=== PATIENT | female | born 1980 | race Caucasian/White ===

== ENCOUNTER 2016-11-21 07:23 | Emergency (ER) | payer OTHER ==
[~2016-11-21] VITALS: Ht 172.1 cm; Wt 105.2 kg
[~2016-11-21 07:23] MED LIST: ACET-704 PO; CYCL10TA2 PO; PROM25TA10 PO; TRAM-29 PO
[2016-11-21 07:30] VITALS: BP 146/80
--- NOTE | 2016-11-21 07:56 | PHYS DOC ---
Past Medical History Past Medical History: Anemia, CHF, Hypertension, IBS, Other Additional Past Medical Histor: leaky valves, chronic back pain, fissure Past Surgical History: Cholecystectomy, Tubal ligation, Other Additional Past Surgical Histo: cardiac cath Alcohol Use: None Drug Use: None Adult General Chief Complaint Chief Complaint: BACK PAIN HPI HPI Patient is a 36 year old female with 2 complaints. #1 back pain. Patient states yesterday she was laying on her side, her phone rang, she twisted to grab her phone, and the top half of her body went one way and the bottom half when the other way. She felt a "pop" in her back has been hurting since then. She has tried heat without relief. She has not tried ice. She has not taken any pain reliever. She in the past has taken tramadol but it makes her constipated. No radiation of her pain down her legs. It is located in her mid to low back across both sides. #2 vaginal discharge. She wants to be checked for STD. She states once a long time ago she had a similar vaginal discharge, she thought it was yeast, but it turned out to be trichomoniasis. Patient denies , she has had her tubes tied and has not missed a period. Review of Systems Review of Systems Constitutional: Denies fever or chills [] Respiratory: Denies cough or shortness of breath [] GI: Denies vomiting : Denies dysuria or hematuria [] Musculoskeletal: As in history of present illness for back pain Current Medications Current Medications Current Medications Medications (Trade) Dose Ordered Sig/Saima Start Time Stop Time Status Last Admin Dose Admin Ibuprofen (Motrin) 600 mg 1X ONCE 11/21/16 08:00 11/21/16 08:01 DC 11/21/16 08:03 600 MG Allergies Allergies Allergies Coded Allergies Type Severity Reaction Last Updated Verified hydrocodone Allergy Intermediate itch 11/21/16 Yes oxycodone Allergy Intermediate itch 11/21/16 Yes Physical Exam Physical Exam Constitutional: Well developed, well nourished, no acute distress, non-toxic appearance. Alert, mentating normally, watching TV. HENT: Normocephalic, atraumatic, bilateral external ears normal, nose normal. [ ] Eyes: conjunctiva normal, no discharge. [] Neck: Normal range of motion, no stridor. [] Skin: Warm, dry, no erythema, no rash. [] Back: Back appearance normal, nontender to palpation, no overlying skin abnormality Pelvic exam: External genitalia normal in appearance, Moderate amount of normal- appearing white discharge. No lesions noted. Vaginal exam normal. Cervix normal in appearance without cervicitis. Bimanual exam unremarkable without masses. Extremities: No tenderness, no cyanosis, no clubbing, ROM intact, no edema. [] Neurologic: Alert and oriented X 3, normal motor function, normal sensory function, no focal deficits noted. [] Current Patient Data Vital Signs Vital Signs Date Time Temp Pulse Resp B/P (MAP) Pulse Ox O2 Delivery O2 Flow Rate FiO2 11/21/16 07:30 98.4 74 16 98 Room Air 98.4 Lab Values Microbiology 11/21/16 Wet Prep - Final, Complete EKG EKG [] Radiology/Procedures Radiology/Procedures [] Course & Med Decision Making Course & Med Decision Making Pertinent Labs and Imaging studies reviewed. (See chart for details) 36-year-old female with 2 complaints. #1 back pain. Musculoskeletal. Talked to the patient about ice and ibuprofen. #2 vaginal discharge. Wet prep was sent as well as GC, chlamydia. Wet prep negative for trichomoniasis or yeast. See discharge instructions. [] Dragon Disclaimer Dragon Disclaimer This electronic medical record was generated, in whole or in part, using a voice recognition dictation system. Departure Departure Impression: Primary Impression: Low back pain Additional Impression: Vaginal discharge Disposition: HOME, SELF-CARE Condition: STABLE Referrals: CORETTA ANN MD (PCP) Patient Instructions: Back Pain, Adult, [id number] Additional Instructions: For back pain, ice 15-20 minutes out of every 1-2 hours. Ibuprofen 600 mg every 6-8 hours as needed for pain. Take with food. If it bothers your stomach, you might try taking it with [id number] Pepcid or Zantac type medication. Tests negative for Trichomonas or yeast. It will take 2-3 days for the other tests and if they are positive we will call you. I suggest [id number] symptom reliever such as vaginal still. Think about whether something that you have come in contact with might be irritating, such as a new detergent, new type of pads, etc. Problem Qualifiers BREEZY FLMEING MD November 21, 2016 07:56
[2016-11-21] MEDS ORDERED: IBUPROFEN 600 MG TABLET. PO ONE (08:00)
== END 2016-11-21 08:18 | disposition home or self-care (01) ==
LOC: ER 07:28
DX: M54.5 Low back pain (principal); M54.6 Pain in thoracic spine; N89.8 Other specified noninflammatory disorders of vagina; G89.29 Other chronic pain; K58.9 Irritable bowel syndrome, unspecified; I11.0 Hypertensive heart disease with heart failure; I50.9 Heart failure, unspecified; Z90.49 Acquired absence of other specified parts of digestive tract; Z98.51 Tubal ligation status; Z86.2 Personal history of diseases of the blood and blood-forming organs and certain disorders involving the immune mechanism; Z88.6 Allergy status to analgesic agent
CPT/HCPCS: 87491; 87591; 99284; Q0111

== ENCOUNTER 2016-12-03 18:04 | Emergency (ER) | payer OTHER ==
[~2016-12-03] VITALS: Ht 170.2 cm; Wt 106.1 kg
[2016-12-03 18:44] LABS: BILIRUBIN,URINE SMALL (NEG); GLUCOSE,URINE NEGATIVE (NEG); NITRITE,URINE NEGATIVE (NEG); PH,URINE 5.5; PROTEIN,URINE NEGATIVE (NEG-TRACE); UROBILINOGEN,URINE 0.2 mg/dL (0.2 mg/dL)
[2016-12-03] MEDS ORDERED: IV NORMAL SALINE 1000ML BAG 1,000 ML IV ONE (18:45)
[2016-12-03] MEDS ORDERED: ONDANSETRON PF 4 MG/2 ML VIAL. IV ONE (18:45)
[2016-12-03] MEDS ORDERED: MORPHINE SULFATE 4 MG/ML DISP.SYRIN. IV ONE (18:45)
[2016-12-03 18:49] LABS: BASO # 0.1 x10^3/uL (0.0-0.2); BASO % 1 % (0-3); EOS % 1 % (0-3); HEMATOCRIT 39.2 % (36.0-47.0); HEMOGLOBIN 12.8 g/dL (12.0-15.5); LYMPH # 3.3 x10^3/uL (1.0-4.8); LYMPH % 39 % (24-48); MEAN CORPUSCULAR HEMOGLOBIN 27 pg (25-35); MEAN CORPUSCULAR HGB CONC 33 g/dL (31-37); MEAN CORPUSCULAR VOLUME 81 fL (79-100); MONO % 8 % (0-9); NEUT % 52 % (31-73); PLATELET COUNT 457 x10^3/uL (140-400); RED BLOOD COUNT 4.83 x10^6/uL (3.50-5.40); RED CELL DISTRIBUTION WIDTH 15.4 % (11.5-14.5); WHITE BLOOD COUNT 8.3 x10^3/uL (4.0-11.0)
[2016-12-03 18:51] LABS: BACTERIA,URINE 0 /HPF (0-FEW); SQUAMOUS EPITHELIAL CELL,UR FEW /LPF; WBC,URINE OCC /HPF (0-4)
[2016-12-03 19:00] LABS: CALCIUM 9.3 mg/dL (8.5-10.1); CREATININE 0.9 mg/dL (0.6-1.0); GFR 70.1; POTASSIUM 3.5 mmol/L (3.5-5.1)
[2016-12-03 19:06] LABS: ALBUMIN 3.9 g/dL (3.4-5.0); ALBUMIN/GLOBULIN RATIO 0.9 (1.0-1.7); TOTAL BILIRUBIN 0.3 mg/dL (0.2-1.0); TOTAL PROTEIN 8.2 g/dL (6.4-8.2)
--- NOTE | 2016-12-03 19:06 | PHYS DOC ---
Past Medical History Past Medical History: Anemia, CHF, Hypertension, IBS, Other Additional Past Medical Histor: leaky valves, chronic back pain, fissure Past Surgical History: Cholecystectomy, Tubal ligation, Other Additional Past Surgical Histo: cardiac cath Alcohol Use: None Drug Use: None Adult General Chief Complaint Chief Complaint: ABDOMINAL PAIN HPI HPI 36-year-old female presenting to the emergency department today with epigastric abdominal pain for one week. It isn't worse over the last hour. She's had vomiting and nausea as well. She denies diarrhea or constipation. Her pain is sharp moderate nonradiating intermittent and without alleviating factors. She has had a cholecystectomy. Review of systems is negative for chest pain shortness of breath fevers chills. All other review of systems is negative unless otherwise noted in history of present illness. Review of Systems Review of Systems SEE ABOVE. Current Medications Current Medications Current Medications Medications (Trade) Dose Ordered Sig/Saima Start Time Stop Time Status Last Admin Dose Admin Morphine Sulfate 4 mg 1X ONCE 12/03/16 18:45 12/03/16 18:46 DC 12/03/16 18:54 4 MG Ondansetron HCl (Zofran) 4 mg 1X ONCE 12/03/16 18:45 12/03/16 18:46 DC 12/03/16 18:56 4 MG Sodium Chloride 1,000 ml @ 1,000 mls/hr 1X ONCE 12/03/16 18:45 12/03/16 19:44 DC 12/03/16 18:55 1,000 MLS/HR Allergies Allergies Allergies Coded Allergies Type Severity Reaction Last Updated Verified hydrocodone Allergy Intermediate itch 11/21/16 Yes oxycodone Allergy Intermediate itch 11/21/16 Yes Physical Exam Physical Exam Constitutional: Well developed, well nourished, no acute distress, non-toxic appearance. HENT: Normocephalic, atraumatic, bilateral external ears normal, oropharynx moist, no oral exudates, nose normal. [] Eyes: PERRLA, EOMI, conjunctiva normal, no discharge. Neck: Normal range of motion, no tenderness, supple, no stridor. [] Cardiovascular:Heart rate regular rhythm, no murmur Lungs & Thorax: Bilateral breath sounds clear to auscultation [] Abdomen: Soft nontender abdomen without rebound tenderness or guarding present. Negative McBurneys point. Negative Hearn sign. No ecchymosis present. Skin: Warm, dry, no erythema, no rash. Back: No tenderness, no CVA tenderness. [] Extremities: No tenderness, no cyanosis, no clubbing, ROM intact, no edema. Neurologic: Alert and oriented X 3, normal motor function, normal sensory function, no focal deficits noted. [] Psychologic: Affect normal, judgement normal, mood normal. [] Current Patient Data Vital Signs Vital Signs Date Time Temp Pulse Resp B/P (MAP) Pulse Ox O2 Delivery O2 Flow Rate FiO2 12/03/16 20:26 58 19 135/75 (95) 97 Room Air 12/03/16 18:30 98.9 98.9 Lab Values Laboratory Tests Test 12/03/16 18:17 12/03/16 18:40 Urine Collection Type Unknown Urine Color Beth Urine Clarity Clear Urine pH 5.5 Urine Specific Cammal 1.025 Urine Protein Negative mg/dL (NEG-TRACE) Urine Glucose (UA) Negative mg/dL (NEG) Urine Ketones (Stick) Trace mg/dL (NEG) Urine Blood Negative (NEG) Urine Nitrite Negative (NEG) Urine Bilirubin Small (NEG) Urine Urobilinogen Dipstick 0.2 mg/dL (0.2 mg/dL) Urine Leukocyte Esterase Negative (NEG) Urine RBC 3-5 /HPF (0-2) Urine WBC Occ /HPF (0-4) Urine Squamous Epithelial Cells Few /LPF Urine Bacteria 0 /HPF (0-FEW) Urine Hyaline Casts Moderate /HPF Urine Mucus Marked /LPF White Blood Count 8.3 x10^3/uL (4.0-11.0) Red Blood Count 4.83 x10^6/uL (3.50-5.40) Hemoglobin 12.8 g/dL (12.0-15.5) Hematocrit 39.2 % (36.0-47.0) Mean Corpuscular Volume 81 fL (79-100) Mean Corpuscular Hemoglobin 27 pg (25-35) Mean Corpuscular Hemoglobin Concent 33 g/dL (31-37) Red Cell Distribution Width 15.4 % (11.5-14.5) H Platelet Count 457 x10^3/uL (140-400) H Neutrophils (%) (Auto) 52 % (31-73) Lymphocytes (%) (Auto) 39 % (24-48) Monocytes (%) (Auto) 8 % (0-9) Eosinophils (%) (Auto) 1 % (0-3) Basophils (%) (Auto) 1 % (0-3) Neutrophils # (Auto) 4.3 x10^3uL (1.8-7.7) Lymphocytes # (Auto) 3.3 x10^3/uL (1.0-4.8) Monocytes # (Auto) 0.6 x10^3/uL (0.0-1.1) Eosinophils # (Auto) 0.1 x10^3/uL (0.0-0.7) Basophils # (Auto) 0.1 x10^3/uL (0.0-0.2) Sodium Level 139 mmol/L (136-145) Potassium Level 3.5 mmol/L (3.5-5.1) Chloride Level 102 mmol/L (98-107) Carbon Dioxide Level 26 mmol/L (21-32) Anion Gap 11 (6-14) Blood Urea Nitrogen 13 mg/dL (7-20) Creatinine 0.9 mg/dL (0.6-1.0) Estimated GFR (Cockcroft-Gault) 70.1 BUN/Creatinine Ratio 14 (6-20) Glucose Level 113 mg/dL (70-99) H Calcium Level 9.3 mg/dL (8.5-10.1) Total Bilirubin 0.3 mg/dL (0.2-1.0) Aspartate Amino Transferase (AST) 18 U/L (15-37) Alanine Aminotransferase (ALT) 27 U/L (14-59) Alkaline Phosphatase 65 U/L (46-116) Total Protein 8.2 g/dL (6.4-8.2) Albumin 3.9 g/dL (3.4-5.0) Albumin/Globulin Ratio 0.9 (1.0-1.7) L Lipase 76 U/L (73-393) Laboratory Tests 12/03/16 18:40 Laboratory Tests 12/03/16 18:40 EKG EKG [] Radiology/Procedures Radiology/Procedures [] Course & Med Decision Making Course & Med Decision Making Pertinent Labs and Imaging studies reviewed. (See chart for details) [] 28-year-old female presenting to the emergency department with epigastric abdominal pain. Vital signs afebrile with normal heart rate. Physical exam shows nontender abdomen. blood work obtained. CT abdomen and pelvis obtained which was unremarkable for acute pathology. The patient was given IV pain medication and nausea medication along with saline. On reexamination, her pain improved significantly. Repeat abd exam shows soft nontender abd. She was given morphine and zofran to go home with. The patient was then discharged home in stable condition to follow up with their primary care physician over the next 2- 3 days. They were to return if their symptoms worsened or if they were concerned for any reason. [id number]-va-[id number] discharge instructions and return precautions were given. Patient's questions were answered to their satisfaction. Patient is comfortable plan. Dragon Disclaimer Dragon Disclaimer This electronic medical record was generated, in whole or in part, using a voice recognition dictation system. Departure Departure Impression: Primary Impression: Abdominal pain Disposition: 01 HOME, SELF-CARE Condition: STABLE Referrals: CORETTA ANN MD (PCP) Patient Instructions: Abdominal Pain MARIEL RATLIFF MD December 03, 2016 19:06
[2016-12-03 20:26] VITALS: BP 135/75
--- NOTE | 2016-12-03 20:36 | RAD ---
CT Abdomen and Pelvis without contrast History: Epigastric pain for one week, nausea and vomiting Technique: Noncontrast CT imaging was performed of the abdomen and pelvis. Multiplanar images are reviewed. Exposure: One or more of the following individualized dose reduction techniques were utilized for this examination: 1. Automated exposure control 2. Adjustment of the mA and/or kV according to patient size 3. Use of iterative reconstruction technique. Comparison: None Findings: Accurate evaluation of abdominal visceral organs is limited without intravenous contrast. There is no obvious abnormality of the spleen, liver, or pancreas. There is no adrenal nodularity. There has been cholecystectomy. No renal calculus is identified. There is no hydronephrosis. No definite ureteral calculus is identified. Accurate evaluation of bowel is limited without oral contrast. There is distention of stomach, internal heterogeneity due to retained gastric contents. There is a very small quantity of dependent free fluid in the pelvis greater on the right. No free air is identified. Normal caliber appendix is visualized without adjacent inflammatory type change. There is mild diverticulosis as of the descending and sigmoid colon without convincing evidence of diverticulitis. There is moderate to severe degenerative disc disease L5-S1, mild left and probable moderate right neural foramina compromise at this level by disc osteophyte complex. Impression: 1. There is distention of stomach. Otherwise no significant acute abnormality is identified on this noncontrast exam. There is mild colonic diverticulosis. There is a very small quantity of nonspecific dependent free fluid in the pelvis greater on the right. There is no CT evidence of acute appendicitis. Electronically signed by: Mor Nova MD (12/03/2016 8:33 PM)
== END 2016-12-03 21:06 | disposition home or self-care (01) ==
LOC: ER 18:04
DX: R10.13 Epigastric pain (principal); I11.0 Hypertensive heart disease with heart failure; I50.9 Heart failure, unspecified; G89.29 Other chronic pain; Z90.49 Acquired absence of other specified parts of digestive tract; Z98.51 Tubal ligation status; Z88.5 Allergy status to narcotic agent
CPT/HCPCS: 36415; 74176; 80053; 81001; 83690; 85027; 96361; 96374; 96375; 99285; J2270; J2405; J7030

== ENCOUNTER 2018-02-28 10:39 | Emergency (ER) | payer OTHER ==
[~2018-02-28] VITALS: Ht 170.2 cm; Wt 104.9 kg
[~2018-02-28 10:39] MED LIST changes: -TRAM-29 PO; +TRAM-48 PO
[2018-02-28 10:57] VITALS: BP 143/77
--- NOTE | 2018-02-28 11:52 | RAD ---
Cervical spine, 3 views, 02/28/2018: HISTORY: Neck and arm pain There is straightening of the normal cervical lordosis. No fracture or dislocation is identified. The intervertebral disc spaces are well-maintained. The prevertebral soft tissues are unremarkable. IMPRESSION: 1. Straightening of the normal cervical lordosis. 2. No acute bony abnormality is detected. Electronically signed by: Dwain Love MD (02/28/2018 11:48 AM) [facility]
--- NOTE | 2018-02-28 12:16 | PHYS DOC ---
Past Medical History Past Medical History: Anemia, CHF, Hypertension, IBS, Pancreatitis, STD, Other Additional Past Medical Histor: leaky valves, chronic back pain, fissure Past Surgical History: Cholecystectomy, Tubal ligation, Other Additional Past Surgical Histo: cardiac cath Alcohol Use: None Drug Use: None Adult General Chief Complaint Chief Complaint: Neck Pain [facility] HPI Patient is a 37 year old [f__sex] who presents with [] Review of Systems Review of Systems Constitutional: Denies fever or chills [] Eyes: Denies change in visual acuity, redness, or eye pain [] HENT: Denies nasal congestion or sore throat [] Respiratory: Denies cough or shortness of breath [] Cardiovascular: No additional information not addressed in HPI [] GI: Denies abdominal pain, nausea, vomiting, bloody stools or diarrhea [] : Denies dysuria or hematuria [] Musculoskeletal: Denies back pain or joint pain [] Integument: Denies rash or skin lesions [] Neurologic: Denies headache, focal weakness or sensory changes [] Endocrine: Denies polyuria or polydipsia [] All other systems were reviewed and found to be within normal limits, except as documented in this note. Allergies Allergies Allergies Coded Allergies Type Severity Reaction Last Updated Verified hydrocodone Allergy Intermediate itch 11/21/16 Yes oxycodone Allergy Intermediate itch 11/21/16 Yes Physical Exam Physical Exam Constitutional: Well developed, well nourished, no acute distress, non-toxic appearance. [] HENT: Normocephalic, atraumatic, bilateral external ears normal, oropharynx moist, no oral exudates, nose normal. [] Eyes: PERRLA, EOMI, conjunctiva normal, no discharge. [] Neck: Normal range of motion, no tenderness, supple, no stridor. [] Cardiovascular:Heart rate regular rhythm, no murmur [] Lungs & Thorax: Bilateral breath sounds clear to auscultation [] Abdomen: Bowel sounds normal, soft, no tenderness, no masses, no pulsatile masses. [] Skin: Warm, dry, no erythema, no rash. [] Back: No tenderness, no CVA tenderness. [] Extremities: No tenderness, no cyanosis, no clubbing, ROM intact, no edema. [] Neurologic: Alert and oriented X 3, normal motor function, normal sensory function, no focal deficits noted. [] Psychologic: Affect normal, judgement normal, mood normal. [] Current Patient Data Vital Signs Vital Signs Date Time Temp Pulse Resp B/P (MAP) Pulse Ox O2 Delivery O2 Flow Rate FiO2 02/28/18 10:57 98.3 66 16 143/77 (99) 99 Room Air 98.3 EKG EKG [] Radiology/Procedures Radiology/Procedures [] Course & Med Decision Making Course & Med Decision Making Pertinent Labs and Imaging studies reviewed. (See chart for details) [] Dragon Disclaimer Dragon Disclaimer This electronic medical record was generated, in whole or in part, using a voice recognition dictation system. Departure Departure Impression: Primary Impression: Trapezius muscle strain Disposition: HOME, SELF-CARE Condition: STABLE Referrals: ASTRID PHELPS (PCP) Patient Instructions: Muscle Strain Additional Instructions: Take the medication as directed. You may also take 800 mg of ibuprofen 3 times daily along with this medication. Follow-up with your primary care provider for possible referral to orthopedics if not improving in one week. If worsening return to the emergency department. Scripts Carisoprodol (SOMA) 350 Mg Tablet 1 TAB PO QHS, #14 TAB Prov: DEANN MAICAS APRN 02/28/18 DEANN MACIAS APRN Feb 28, 2018 12:16
[2018-02-28] MEDS ORDERED: CARI350T PO (12:24)
[2018-02-28] MEDS ORDERED: KETOROLAC 60 MG/2 ML INJ. IM ONE (13:15)
== END 2018-02-28 12:35 | disposition home or self-care (01) ==
LOC: ER 10:39
DX: S46.811A Strain of other muscles, fascia and tendons at shoulder and upper arm level, right arm, initial encounter (principal); I11.0 Hypertensive heart disease with heart failure; I50.9 Heart failure, unspecified; Z90.49 Acquired absence of other specified parts of digestive tract; Z98.51 Tubal ligation status; Z88.5 Allergy status to narcotic agent; X58.XXXA Exposure to other specified factors, initial encounter; Y93.89 Activity, other specified; Y92.89 Other specified places as the place of occurrence of the external cause; Y99.8 Other external cause status
CPT/HCPCS: 72040; 96372; 99284; J1885

== ENCOUNTER 2018-04-02 13:01 | Emergency (ER) | payer OTHER ==
[~2018-04-02] VITALS: Ht 170.2 cm; Wt 103.9 kg
[~2018-04-02 13:01] MED LIST changes: +CARI350T PO
[2018-04-02 13:10] VITALS: BP 147/74
--- NOTE | 2018-04-02 13:15 | PHYS DOC ---
Past Medical History Past Medical History: Anemia, CHF, Hypertension, IBS, Pancreatitis, STD, Other Additional Past Medical Histor: leaky valves, chronic back pain, fissure Past Surgical History: Cholecystectomy, Tubal ligation, Other Additional Past Surgical Histo: cardiac cath Alcohol Use: None Drug Use: None Adult General Chief Complaint Chief Complaint: EYE PROBLEMS HPI HPI Patient is a 37 year old female who has had congestion, sore throat, and ear fullness for the last week and then yesterday started noticing her eye was draining a white drainage and she awoke today with her eye matted shut. Review of Systems Review of Systems Constitutional: Denies fever or chills Eyes: Denies change in visual acuity, reports L eye redness and drainage HENT: Reports nasal congestion and mild sore throat. Respiratory: Denies shortness of breath. Reports mild cough. Cardiovascular: Denies chest pain. GI: Denies abdominal pain, nausea, vomiting, bloody stools or diarrhea Musculoskeletal: Denies back pain or joint pain Integument: Denies rash or skin lesions Neurologic: Denies headache, focal weakness or sensory changes All other systems were reviewed and found to be within normal limits, except as documented in this note. Allergies Allergies Allergies Coded Allergies Type Severity Reaction Last Updated Verified hydrocodone Allergy Intermediate itch 11/21/16 Yes oxycodone Allergy Intermediate itch 11/21/16 Yes Physical Exam Physical Exam Constitutional: Well developed, well nourished, no acute distress, non-toxic appearance. HENT: Normocephalic, atraumatic, bilateral external ears normal, oropharynx moist, no oral exudates, nose normal. Eyes: PERRLA, EOMI, L eye conjunctiva is mildly erythematous with a white/ yellow drainage noted in medial canthus. Pt denies vision changes and modified visual acuity screening intact. Neck: Normal range of motion, no tenderness, supple, no stridor. Cardiovascular:Heart rate regular rhythm, no murmur Lungs & Thorax: Bilateral breath sounds clear to auscultation Abdomen: Bowel sounds normal, soft, no tenderness, no masses, no pulsatile masses. Skin: Warm, dry, no erythema, no rash. Back: No tenderness, no CVA tenderness. Extremities: No tenderness, no cyanosis, no clubbing, ROM intact, no edema. Neurologic: Alert and oriented X 3, normal motor function, normal sensory function, no focal deficits noted. Psychologic: Affect normal, judgement normal, mood normal. Current Patient Data Vital Signs Vital Signs Date Time Temp Pulse Resp B/P (MAP) Pulse Ox O2 Delivery O2 Flow Rate FiO2 04/02/18 13:10 98.2 75 18 147/74 (98) 100 Room Air 98.2 EKG EKG [] Radiology/Procedures Radiology/Procedures [] Course & Med Decision Making Course & Med Decision Making Pertinent Labs and Imaging studies reviewed. (See chart for details) Discussed conjunctivitis and that this appears to be likely bacterial. Discussed high risk of passing this on to others and encouraged frequent hand washing. Warm compresses to help with drainage. Will cover with antibiotic drops and allergy medicine for the congestion. Pt to f/u with opthomology if any progression or continuation of symptoms. Dragon Disclaimer Dragon Disclaimer This electronic medical record was generated, in whole or in part, using a voice recognition dictation system. Departure Departure Impression: Primary Impression: Conjunctivitis Disposition: HOME, SELF-CARE Condition: STABLE Referrals: ASTRID PHELPS (PCP) Patient Instructions: Bacterial Conjunctivitis, [id number], Upper Respiratory Infection, Adult, Vwdv-[id number] Scripts Guaifenesin (MUCINEX) 600 Mg Tablet.er 1 TAB PO BID, #14 TAB Prov: RUBEN GUAMAN 04/02/18 Gentamicin Sulfate (GENTAMICIN SULFATE 0.3% OPHTH SOLN) 5 Ml Drops 2 DROP EACHEYE QID, #5 ML Prov: RUBEN GUAMAN 04/02/18 RUBEN GUAMAN Apr 02, 2018 13:15
[2018-04-02] MEDS ORDERED: GENT5DRO3 EACHEYE (13:18)
[2018-04-02] MEDS ORDERED: GUAI600T47 PO (13:18)
== END 2018-04-02 13:23 | disposition home or self-care (01) ==
LOC: ER 13:01
DX: H10.9 Unspecified conjunctivitis (principal); J02.9 Acute pharyngitis, unspecified; I11.0 Hypertensive heart disease with heart failure; I50.9 Heart failure, unspecified; K58.9 Irritable bowel syndrome, unspecified; G89.29 Other chronic pain; Z90.49 Acquired absence of other specified parts of digestive tract; Z98.51 Tubal ligation status; Z88.5 Allergy status to narcotic agent
CPT/HCPCS: 99283

== ENCOUNTER 2018-05-02 10:31 | Emergency (ER) | payer OTHER ==
[~2018-05-02] VITALS: Ht 170.2 cm; Wt 106.6 kg
[~2018-05-02 10:31] MED LIST changes: +GENT5DRO3 EACHEYE; +GUAI600T47 PO
[2018-05-02 11:19] LABS: BILIRUBIN,URINE NEGATIVE (NEG); CLARITY,URINE CLEAR; COLOR,URINE YELLOW; NITRITE,URINE NEGATIVE (NEG); PH,URINE 5.5; PROTEIN,URINE NEGATIVE (NEG-TRACE); UROBILINOGEN,URINE 0.2 mg/dL (0.2 mg/dL)
[2018-05-02 11:35] VITALS: BP 133/72
[2018-05-02 11:38] LABS: SQUAMOUS EPITHELIAL CELL,UR FEW /LPF
[2018-05-02 11:39] LABS: BACTERIA,URINE 0 /HPF (0-FEW); RBC,URINE 0 /HPF (0-2); WBC,URINE OCC /HPF (0-4)
[2018-05-02 11:44] LABS: BASO # 0.1 x10^3/uL (0.0-0.2); BASO % 1 % (0-3); EOS % 1 % (0-3); HEMOGLOBIN 12.3 g/dL (12.0-15.5); LYMPH % 30 % (24-48); MEAN CORPUSCULAR HEMOGLOBIN 28 pg (25-35); MEAN CORPUSCULAR HGB CONC 34 g/dL (31-37); MEAN CORPUSCULAR VOLUME 83 fL (79-100); MONO # 0.5 x10^3/uL (0.0-1.1); MONO % 8 % (0-9); NEUT # 4.1 x10^3uL (1.8-7.7); NEUT % 61 % (31-73); PLATELET COUNT 411 x10^3/uL (140-400); RED BLOOD COUNT 4.34 x10^6/uL (3.50-5.40); RED CELL DISTRIBUTION WIDTH 15.9 % (11.5-14.5); WHITE BLOOD COUNT 6.7 x10^3/uL (4.0-11.0)
[2018-05-02 11:47] LABS: CREATININE 0.6 mg/dL (0.6-1.0); GFR 111.3; POTASSIUM 3.9 mmol/L (3.5-5.1)
[2018-05-02 11:53] LABS: ALBUMIN 3.7 g/dL (3.4-5.0); ALBUMIN/GLOBULIN RATIO 0.9 (1.0-1.7); TOTAL BILIRUBIN 0.3 mg/dL (0.2-1.0)
--- NOTE | 2018-05-02 12:34 | RAD ---
Pelvic ultrasound, 05/02/2018: HISTORY: Right-sided pelvic pain Transabdominal and transvaginal scans were obtained. The uterus measures 10.1 x 5.3 x 4.4 cm. An echogenic structure compatible with an IUD is seen within the central uterine cavity. The remainder of the central uterine echo complex is unremarkable. The myometrium is mildly heterogeneous. There appears to be a small 1.1 cm heterogeneous, predominately isoechoic nodule within the anterior wall the uterus, most likely representing a fibroid. The right ovary measures 3.3 x 2.5 x 2.1 cm. The left ovary measures 4.5 x 2.6 x 4.4 and contains a simple cyst measuring 3.4 cm. A small follicular cyst is also present left ovary. There is blood flow in both ovaries. The adnexal regions are otherwise unremarkable. No free fluid is evident in the pelvis. IMPRESSION: 1. An IUD is in place in the central uterine cavity. 2. Probable small uterine fibroid. 2. Left ovarian cyst. Electronically signed by: Dwain Love MD (05/02/2018 12:30 PM) [facility]
[2018-05-02] MEDS ORDERED: VALA500T PO (12:58)
--- NOTE | 2018-05-02 13:00 | PHYS DOC ---
Past Medical History Past Medical History: Anemia, CHF, Hypertension, IBS, Pancreatitis, STD, Other Additional Past Medical Histor: leaky valves, chronic back pain, fissure Past Surgical History: Cholecystectomy, Tubal ligation, Other Additional Past Surgical Histo: cardiac cath Alcohol Use: None Drug Use: None Adult General Chief Complaint Chief Complaint: ABDOMINAL PAIN HPI HPI Patient is a 37 year old [f__sex] who presents with [] Review of Systems Review of Systems Constitutional: Denies fever or chills [] Eyes: Denies change in visual acuity, redness, or eye pain [] HENT: Denies nasal congestion or sore throat [] Respiratory: Denies cough or shortness of breath [] Cardiovascular: No additional information not addressed in HPI [] GI: Denies abdominal pain, nausea, vomiting, bloody stools or diarrhea [] : Denies dysuria or hematuria [] Musculoskeletal: Denies back pain or joint pain [] Integument: Denies rash or skin lesions [] Neurologic: Denies headache, focal weakness or sensory changes [] Endocrine: Denies polyuria or polydipsia [] All other systems were reviewed and found to be within normal limits, except as documented in this note. Allergies Allergies Allergies Coded Allergies Type Severity Reaction Last Updated Verified hydrocodone Allergy Intermediate itch 11/21/16 Yes oxycodone Allergy Intermediate itch 11/21/16 Yes Physical Exam Physical Exam Constitutional: Well developed, well nourished, no acute distress, non-toxic appearance. [] HENT: Normocephalic, atraumatic, bilateral external ears normal, oropharynx moist, no oral exudates, nose normal. [] Eyes: PERRLA, EOMI, conjunctiva normal, no discharge. [] Neck: Normal range of motion, no tenderness, supple, no stridor. [] Cardiovascular:Heart rate regular rhythm, no murmur [] Lungs & Thorax: Bilateral breath sounds clear to auscultation [] Abdomen: Bowel sounds normal, soft, no tenderness, no masses, no pulsatile masses. [] Skin: Warm, dry, no erythema, no rash. [] Back: No tenderness, no CVA tenderness. [] Extremities: No tenderness, no cyanosis, no clubbing, ROM intact, no edema. [] Neurologic: Alert and oriented X 3, normal motor function, normal sensory function, no focal deficits noted. [] Psychologic: Affect normal, judgement normal, mood normal. [] Current Patient Data Vital Signs Vital Signs Date Time Temp Pulse Resp B/P (MAP) Pulse Ox O2 Delivery O2 Flow Rate FiO2 05/02/18 10:35 98.6 66 20 132/68 (89) 100 Room Air 98.6 Lab Values Laboratory Tests Test 05/02/18 10:35 05/02/18 10:48 05/02/18 11:20 Urine Collection Type Unknown Urine Color Yellow Urine Clarity Clear Urine pH 5.5 Urine Specific [place] 1.015 Urine Protein Negative mg/dL (NEG-TRACE) Urine Glucose (UA) Negative mg/dL (NEG) Urine Ketones (Stick) Negative mg/dL (NEG) Urine Blood Small (NEG) Urine Nitrite Negative (NEG) Urine Bilirubin Negative (NEG) Urine Urobilinogen Dipstick 0.2 mg/dL (0.2 mg/dL) Urine Leukocyte Esterase Negative (NEG) Urine RBC 0 /HPF (0-2) Urine WBC Occ /HPF (0-4) Urine Squamous Epithelial Cells Few /LPF Urine Bacteria 0 /HPF (0-FEW) Urine Mucus Marked /LPF POC Urine HCG, Qualitative Hcg negative (Negative) White Blood Count 6.7 x10^3/uL (4.0-11.0) Red Blood Count 4.34 x10^6/uL (3.50-5.40) Hemoglobin 12.3 g/dL (12.0-15.5) Hematocrit 36.0 % (36.0-47.0) Mean Corpuscular Volume 83 fL (79-100) Mean Corpuscular Hemoglobin 28 pg (25-35) Mean Corpuscular Hemoglobin Concent 34 g/dL (31-37) Red Cell Distribution Width 15.9 % (11.5-14.5) H Platelet Count 411 x10^3/uL (140-400) H Neutrophils (%) (Auto) 61 % (31-73) Lymphocytes (%) (Auto) 30 % (24-48) Monocytes (%) (Auto) 8 % (0-9) Eosinophils (%) (Auto) 1 % (0-3) Basophils (%) (Auto) 1 % (0-3) Neutrophils # (Auto) 4.1 x10^3uL (1.8-7.7) Lymphocytes # (Auto) 2.0 x10^3/uL (1.0-4.8) Monocytes # (Auto) 0.5 x10^3/uL (0.0-1.1) Eosinophils # (Auto) 0.0 x10^3/uL (0.0-0.7) Basophils # (Auto) 0.1 x10^3/uL (0.0-0.2) Sodium Level 138 mmol/L (136-145) Potassium Level 3.9 mmol/L (3.5-5.1) Chloride Level 102 mmol/L (98-107) Carbon Dioxide Level 26 mmol/L (21-32) Anion Gap 10 (6-14) Blood Urea Nitrogen 7 mg/dL (7-20) Creatinine 0.6 mg/dL (0.6-1.0) Estimated GFR (Cockcroft-Gault) 111.3 BUN/Creatinine Ratio 12 (6-20) Glucose Level 91 mg/dL (70-99) Calcium Level 9.0 mg/dL (8.5-10.1) Total Bilirubin 0.3 mg/dL (0.2-1.0) Aspartate Amino Transferase (AST) 18 U/L (15-37) Alanine Aminotransferase (ALT) 28 U/L (14-59) Alkaline Phosphatase 50 U/L (46-116) Total Protein 8.0 g/dL (6.4-8.2) Albumin 3.7 g/dL (3.4-5.0) Albumin/Globulin Ratio 0.9 (1.0-1.7) L Amylase Level 38 U/L (25-115) Lipase 71 U/L (73-393) L Laboratory Tests 05/02/18 11:20 Laboratory Tests 05/02/18 11:20 EKG EKG [] Radiology/Procedures Radiology/Procedures []PATIENT: FAN WILLIAMSON RACCOUNT: [id number]#: [id number] : 1980 LOCATION: ER AGE: 37 SEX: F EXAM STATUS: REG ER ORD. PHYSICIAN: DEANN MACIAS APRN REASON: pelvic pain to right, hx of fibroid and left ovarian cyst PROCEDURE: PELVIS W/TV Pelvic ultrasound, 05/02/2018: HISTORY: Right-sided pelvic pain Transabdominal and transvaginal scans were obtained. The uterus measures 10.1 x 5.3 x 4.4 cm. An echogenic structure compatible with an IUD is seen within the central uterine cavity. The remainder of the central uterine echo complex is unremarkable. The myometrium is mildly heterogeneous. There appears to be a small 1.1 cm heterogeneous, predominately isoechoic nodule within the anterior wall the uterus, most likely representing a fibroid. The right ovary measures 3.3 x 2.5 x 2.1 cm. The left ovary measures 4.5 x 2.6 x 4.4 and contains a simple cyst measuring 3.4 cm. A small follicular cyst is also present left ovary. There is blood flow in both ovaries. The adnexal regions are otherwise unremarkable. No free fluid is evident in the pelvis. IMPRESSION: 1. An IUD is in place in the central uterine cavity. 2. Probable small uterine fibroid. 2. Left ovarian cyst. Electronically signed by: Dwain Love MD (05/02/2018 12:30 PM) [facility] DICTATED and SIGNED BY: DWAIN LOVE MD DATE: 05/02/18 1222 Course & Med Decision Making Course & Med Decision Making Pertinent Labs and Imaging studies reviewed. (See chart for details) [] Dragon Disclaimer Dragon Disclaimer This electronic medical record was generated, in whole or in part, using a voice recognition dictation system. Departure Departure Impression: Primary Impression: Uterine fibroid Additional Impressions: Ovarian cyst Herpes genitalia Disposition: 01 HOME, SELF-CARE Condition: STABLE Referrals: ASTRID PHELPS (PCP) Patient Instructions: Genital Herpes, Ovarian Cyst, Uterine Fibroid, Easy-to- Read Additional Instructions: Take medication as prescribed. Follow-up with gynecology for further evaluation and management of your urine fibroid and ovarian cyst. Scripts Valacyclovir Hcl (VALACYCLOVIR) 500 Mg Tablet 1 TAB PO BID for 3 Days, #6 TAB 2 Refills Prov: MARCELLAFEDERICODEANN Wray APRN 05/02/18 Problem Qualifiers DEANN MACIAS APRN May 02, 2018 13:00
== END 2018-05-02 13:25 | disposition home or self-care (01) ==
LOC: ER 10:31
DX: D25.9 Leiomyoma of uterus, unspecified (principal); N83.202 Unspecified ovarian cyst, left side; A60.00 Herpesviral infection of urogenital system, unspecified; I11.0 Hypertensive heart disease with heart failure; I50.9 Heart failure, unspecified; G89.29 Other chronic pain; M54.9 Dorsalgia, unspecified; Z90.49 Acquired absence of other specified parts of digestive tract; Z88.5 Allergy status to narcotic agent
CPT/HCPCS: 36415; 76830; 76856; 80053; 81001; 81025; 82150; 83690; 85025; 99285

== ENCOUNTER 2018-07-21 22:13 | Emergency (ER) | payer OTHER ==
[~2018-07-21] VITALS: Ht 170.2 cm; Wt 113.4 kg
[~2018-07-21 22:13] MED LIST changes: +VALA500T PO
[2018-07-21] MEDS ORDERED: IV NORMAL SALINE 1000ML BAG 1,000 ML IV SCH (23:00)
[2018-07-21] MEDS ORDERED: MORPHINE SULFATE 4 MG/ML VIAL. IV/SQ PRN (23:00)
[2018-07-21] MEDS ORDERED: MORPHINE SULFATE 2 MG/ML VIAL. ONE (23:23)
[2018-07-21 23:46] LABS: BASO % 0 % (0-3); EOS # 0.1 x10^3/uL (0.0-0.7); EOS % 2 % (0-3); HEMOGLOBIN 11.9 g/dL (12.0-15.5); LYMPH % 36 % (24-48); MEAN CORPUSCULAR HEMOGLOBIN 28 pg (25-35); MEAN CORPUSCULAR HGB CONC 34 g/dL (31-37); MEAN CORPUSCULAR VOLUME 82 fL (79-100); MONO # 0.4 x10^3/uL (0.0-1.1); MONO % 8 % (0-9); NEUT # 3.1 x10^3uL (1.8-7.7); NEUT % 55 % (31-73); PLATELET COUNT 327 x10^3/uL (140-400); RED BLOOD COUNT 4.26 x10^6/uL (3.50-5.40); RED CELL DISTRIBUTION WIDTH 14.8 % (11.5-14.5); WHITE BLOOD COUNT 5.6 x10^3/uL (4.0-11.0)
[2018-07-21 23:50] LABS: BILIRUBIN,URINE SMALL (NEG); CLARITY,URINE CLOUDY; COLOR,URINE AMBER; NITRITE,URINE NEGATIVE (NEG); PROTEIN,URINE NEGATIVE (NEG-TRACE)
[2018-07-21 23:54] LABS: CALCIUM 8.5 mg/dL (8.5-10.1); CREATININE 0.7 mg/dL (0.6-1.0); GFR 93.2; POTASSIUM 3.4 mmol/L (3.5-5.1)
[2018-07-21 23:56] LABS: BACTERIA,URINE MANY /HPF (0-FEW); SQUAMOUS EPITHELIAL CELL,UR OCC /LPF
--- NOTE | 2018-07-21 23:56 | PHYS DOC ---
Past Medical History Past Medical History: Anemia, CHF, Hypertension, IBS, Pancreatitis, STD, Other Additional Past Medical Histor: leaky valves, chronic back pain, fissure Past Surgical History: Cholecystectomy, Tubal ligation, Other Additional Past Surgical Histo: cardiac cath Alcohol Use: None Drug Use: None Adult General Chief Complaint Chief Complaint: ABDOMINAL PAIN HPI HPI Patient is a 37-year-old female who presents with complaint of epigastric pain that started earlier today. Patient states that pain has gotten worse this evening. She states that she had taken her evening dose of morphine and that had worn off and then she took a tramadol. Patient rates her pain currently at an 8 out of 10. She states that she has a history of pancreatitis and this feels just like when she has had pancreatitis in the past. She does admit to nausea but has not vomited. She denies any diarrhea. She states the pain radiates into her back. Review of Systems Review of Systems Constitutional: Denies fever or chills [] Respiratory: Denies cough or shortness of breath [] Cardiovascular: No additional information not addressed in HPI [] GI: Complains of abdominal pain with nausea. No vomiting or diarrhea [] : Denies dysuria or hematuria [] Musculoskeletal: Complains of back pain [] All other systems were reviewed and found to be within normal limits, except as documented in this note. Current Medications Current Medications Current Medications Medications (Trade) Dose Ordered Sig/[facility] Start Time Stop Time Status Last Admin Dose Admin Morphine Sulfate (Morphine Sulfate) 2 mg STK-MED ONCE 07/21/18 23:23 07/21/18 23:30 DC Sodium Chloride 1,000 ml @ 1,000 mls/hr Q1H 07/21/18 23:00 07/21/18 23:59 DC 07/21/18 23:35 1,000 MLS/HR Allergies Allergies Allergies Coded Allergies Type Severity Reaction Last Updated Verified hydrocodone Allergy Intermediate itch 11/21/16 Yes oxycodone Allergy Intermediate itch 11/21/16 Yes Physical Exam Physical Exam Constitutional: Well developed, well nourished, no acute distress, non-toxic appearance. [] HENT: Normocephalic, atraumatic, bilateral external ears normal, oropharynx moist, no oral exudates, nose normal. [] Eyes: PERRLA, EOMI, conjunctiva normal, no discharge. [] Neck: Normal range of motion, no tenderness, supple, no stridor. [] Cardiovascular: Regular rate and rhythm[] Lungs & Thorax: Bilateral breath sounds clear to auscultation [] Abdomen: Bowel sounds normal, soft, with moderate epigastric tenderness. [] Skin: Warm, dry, no erythema, no rash. [] Extremities: No tenderness, no cyanosis, no clubbing, ROM intact, no edema. [] Neurologic: Alert and oriented X 3, no focal deficits noted. [] Current Patient Data Vital Signs Vital Signs Date Time Temp Pulse Resp B/P (MAP) Pulse Ox O2 Delivery O2 Flow Rate FiO2 07/21/18 22:36 98.3 78 16 155/85 (108) 98 Room Air 98.3 Lab Values Laboratory Tests Test 07/21/18 23:25 07/21/18 23:39 White Blood Count 5.6 x10^3/uL (4.0-11.0) Red Blood Count 4.26 x10^6/uL (3.50-5.40) Hemoglobin 11.9 g/dL (12.0-15.5) L Hematocrit 35.0 % (36.0-47.0) L Mean Corpuscular Volume 82 fL (79-100) Mean Corpuscular Hemoglobin 28 pg (25-35) Mean Corpuscular Hemoglobin Concent 34 g/dL (31-37) Red Cell Distribution Width 14.8 % (11.5-14.5) H Platelet Count 327 x10^3/uL (140-400) Neutrophils (%) (Auto) 55 % (31-73) Lymphocytes (%) (Auto) 36 % (24-48) Monocytes (%) (Auto) 8 % (0-9) Eosinophils (%) (Auto) 2 % (0-3) Basophils (%) (Auto) 0 % (0-3) Neutrophils # (Auto) 3.1 x10^3uL (1.8-7.7) Lymphocytes # (Auto) 2.0 x10^3/uL (1.0-4.8) Monocytes # (Auto) 0.4 x10^3/uL (0.0-1.1) Eosinophils # (Auto) 0.1 x10^3/uL (0.0-0.7) Basophils # (Auto) 0.0 x10^3/uL (0.0-0.2) Sodium Level 138 mmol/L (136-145) Potassium Level 3.4 mmol/L (3.5-5.1) L Chloride Level 101 mmol/L (98-107) Carbon Dioxide Level 27 mmol/L (21-32) Anion Gap 10 (6-14) Blood Urea Nitrogen 9 mg/dL (7-20) Creatinine 0.7 mg/dL (0.6-1.0) Estimated GFR (Cockcroft-Gault) 93.2 BUN/Creatinine Ratio 13 (6-20) Glucose Level 105 mg/dL (70-99) H Calcium Level 8.5 mg/dL (8.5-10.1) Total Bilirubin 0.3 mg/dL (0.2-1.0) Aspartate Amino Transferase (AST) 77 U/L (15-37) H Alanine Aminotransferase (ALT) 27 U/L (14-59) Alkaline Phosphatase 55 U/L (46-116) Total Protein 7.3 g/dL (6.4-8.2) Albumin 3.2 g/dL (3.4-5.0) L Albumin/Globulin Ratio 0.8 (1.0-1.7) L Lipase 56 U/L (73-393) L Urine Color Beth Urine Clarity Cloudy Urine pH 6.0 Urine Specific [place] 1.025 Urine Protein Negative mg/dL (NEG-TRACE) Urine Glucose (UA) Negative mg/dL (NEG) Urine Ketones (Stick) Negative mg/dL (NEG) Urine Blood Moderate (NEG) Urine Nitrite Negative (NEG) Urine Bilirubin Small (NEG) Urine Urobilinogen Dipstick 1.0 mg/dL (0.2 mg/dL) Urine Leukocyte Esterase Moderate (NEG) Urine RBC 3-5 /HPF (0-2) Urine WBC 11-20 /HPF (0-4) Urine Squamous Epithelial Cells Occ /LPF Urine Bacteria Many /HPF (0-FEW) Urine Mucus Slight /LPF Laboratory Tests 07/21/18 23:25 Laboratory Tests 07/21/18 23:25 EKG EKG [] Radiology/Procedures Radiology/Procedures [] Course & Med Decision Making Course & Med Decision Making Pertinent Labs and Imaging studies reviewed. (See chart for details) [] Dragon Disclaimer Dragon Disclaimer This electronic medical record was generated, in whole or in part, using a voice recognition dictation system. Departure Departure Impression: Primary Impression: Epigastric abdominal pain Additional Impression: Urinary tract infection Disposition: 01 HOME, SELF-CARE Condition: STABLE Referrals: ASTRID PHELPS (PCP) Patient Instructions: Abdominal Pain, Urinary Tract Infection Scripts Sulfamethoxazole/Trimethoprim (BACTRIM DS TABLET) 1 Each Tablet 1 TAB PO BID, #14 TAB Prov: EHSAN SEGOVIA Jr. DO 07/22/18 Problem Qualifiers Additional Impression: Urinary tract infection Urinary tract infection type: site unspecified Hematuria presence: with hematuria Qualified Codes: N39.0 - Urinary tract infection, site not specified ; R31.9 - Hematuria, unspecified EHSAN SEGOVIA Jr. DO Jul 21, 2018 23:56
[2018-07-22] LABS: ALBUMIN 3.2 g/dL (3.4-5.0); ALBUMIN/GLOBULIN RATIO 0.8 (1.0-1.7); TOTAL BILIRUBIN 0.3 mg/dL (0.2-1.0); TOTAL PROTEIN 7.3 g/dL (6.4-8.2)
[2018-07-22] MEDS ORDERED: SULF1TAB24 PO (00:15)
[2018-07-22 00:18] VITALS: BP 141/84
[2018-07-22] MEDS ORDERED: SMZ/TMP 800/160MG TABLET. PO ONE (00:30)
[2018-07-22 00:34] LABS: U PREG PATIENT NEGATIVE (NEG)
== END 2018-07-22 00:40 | disposition home or self-care (01) ==
LOC: ER 22:13
DX: N39.0 Urinary tract infection, site not specified (principal); R31.9 Hematuria, unspecified; I11.0 Hypertensive heart disease with heart failure; I50.9 Heart failure, unspecified; G89.29 Other chronic pain; K58.9 Irritable bowel syndrome, unspecified; Z90.49 Acquired absence of other specified parts of digestive tract; Z98.51 Tubal ligation status; Z88.5 Allergy status to narcotic agent
CPT/HCPCS: 36415; 80053; 81001; 81025; 83690; 85025; 87086; 96374; 99283; J2270; J7030

== ENCOUNTER 2019-05-29 17:01 | Emergency (ER) | payer OTHER ==
[~2019-05-29] VITALS: Ht 170.2 cm; Wt 108.0 kg
[~2019-05-29 17:01] MED LIST changes: +DOXY100C2 PO; +ONDA4TAB12 PO; +SULF1TAB24 PO
[2019-05-29 19:15] VITALS: BP 134/63
[2019-05-29] MEDS ORDERED: KETOROLAC 30 MG/ML VIAL. IM STA (20:00)
[2019-05-29] MEDS ORDERED: ORPH100T PO (20:07)
--- NOTE | 2019-05-29 20:08 | PHYS DOC ---
Past Medical History Past Medical History: Anemia, CHF, Hypertension, IBS, Pancreatitis, STD, Other Additional Past Medical Histor: leaky valves, chronic back pain, fissure Past Surgical History: Cholecystectomy, Hysterectomy, Tubal ligation, Other Additional Past Surgical Histo: cardiac cath Alcohol Use: None Drug Use: None Adult General Chief Complaint Chief Complaint: Neck Pain [facility] HPI Patient is a 38 year old female who presents with right-sided neck pain has been ongoing for 2 months. The patient states hot showers make it better. Rates her pain a 7 out of 10 in severity and sharp. Denies any numbness and tingling down the arm. Review of Systems Review of Systems Constitutional: Denies fever or chills [] Eyes: Denies change in visual acuity, redness, or eye pain [] HENT: Denies nasal congestion or sore throat [] Respiratory: Denies cough or shortness of breath [] Cardiovascular: No additional information not addressed in HPI [] GI: Denies abdominal pain, nausea, vomiting, bloody stools or diarrhea [] : Denies dysuria or hematuria [] Musculoskeletal: Reports R shoulder pain. Integument: Denies rash or skin lesions [] Neurologic: Denies headache, focal weakness or sensory changes [] Endocrine: Denies polyuria or polydipsia [] Complete systems were reviewed and found to be within normal limits, except as documented in this note. Allergies Allergies Allergies Coded Allergies Type Severity Reaction Last Updated Verified hydrocodone Allergy Intermediate itch 11/21/16 Yes oxycodone Allergy Intermediate itch 11/21/16 Yes Physical Exam Physical Exam Constitutional: Well developed, well nourished, no acute distress, non-toxic appearance. [] HENT: Normocephalic, atraumatic, bilateral external ears normal, oropharynx moist, no oral exudates, nose normal. [] Eyes: PERRLA, EOMI, conjunctiva normal, no discharge. [] Neck: Normal range of motion, no tenderness, supple, no stridor. [] Cardiovascular:Heart rate regular rhythm, no murmur [] Lungs & Thorax: Bilateral breath sounds clear to auscultation [] Abdomen: Bowel sounds normal, soft, no tenderness, no masses, no pulsatile masses. [] Skin: Warm, dry, no erythema, no rash. [] Back: No tenderness, no CVA tenderness. [] Extremities: Trigger point in R trapezes muscle. Neurologic: Alert and oriented X 3, normal motor function, normal sensory function, no focal deficits noted. [] Psychologic: Affect normal, judgement normal, mood normal. [] Current Patient Data Vital Signs Vital Signs Date Time Temp Pulse Resp B/P (MAP) Pulse Ox O2 Delivery O2 Flow Rate FiO2 05/29/19 19:15 98.0 63 18 134/63 (86) 100 Room Air 98.0 EKG EKG [] Radiology/Procedures Radiology/Procedures [] Course & Med Decision Making Course & Med Decision Making Pertinent Labs and Imaging studies reviewed. (See chart for details) Discussed with patient to follow up with primary care doctor and try Foam Roller and Therma Heat. Will also prescribe Norflex and give Toradol in ER. Dragon Disclaimer Dragon Disclaimer This electronic medical record was generated, in whole or in part, using a voice recognition dictation system. Departure Departure Impression: Primary Impression: Musculoskeletal pain Disposition: HOME, SELF-CARE Condition: STABLE Referrals: ASTRID PHELPS (PCP) Patient Instructions: Musculoskeletal Pain Additional Instructions: Thank you for visiting [facility]. We appreciate you trusting us with your care. If any additional problems come up don't hesitate to return to visit us. Please follow up with your primary care provider so they can plan additional care if needed and know about the problem that you had. If symptoms worsen come back to the Emergency Department. Any concerning symptoms that start such as chest pain, shortness of air, weakness or numbness on one side of the body, running high fevers or any other concerning symptoms return to the ER. Please fill your medications at any pharmacy and follow the prescription instructions. Please also get Therma Heat and follow label instructions. Scripts Orphenadrine Citrate (ORPHENADRINE CITRATE) 100 Mg Tablet.er 100 MG PO BID for 10 Days, #20 TAB.SR Prov: TERI METZGER APRN 05/29/19 TERI METZGER APRN May 29, 2019 20:08
== END 2019-05-29 20:25 | disposition home or self-care (01) ==
LOC: ER 17:01
DX: M25.511 Pain in right shoulder (principal); M54.2 Cervicalgia; G89.29 Other chronic pain; I11.0 Hypertensive heart disease with heart failure; I50.9 Heart failure, unspecified; K58.9 Irritable bowel syndrome, unspecified; Z88.5 Allergy status to narcotic agent
CPT/HCPCS: 96372; 99283; J1885

== ENCOUNTER 2019-08-02 17:50 | Emergency (ER) | payer OTHER ==
[~2019-08-02] VITALS: Ht 170.2 cm; Wt 106.0 kg
[~2019-08-02 17:50] MED LIST changes: +ORPH100T PO
[2019-08-02 18:00] VITALS: BP 144/101
[2019-08-02] MEDS ORDERED: METH4TAB2 PO (18:31)
--- NOTE | 2019-08-02 18:31 | PHYS DOC ---
Past Medical History Past Medical History: Anemia, CHF, Hypertension, IBS, Pancreatitis, STD, Other Additional Past Medical Histor: leaky valves, chronic back pain, fissure (MISA PRESSLEY APRN) Past Surgical History: Cholecystectomy, Hysterectomy, Tubal ligation, Other Additional Past Surgical Histo: cardiac cath, cardiac ablation (MISA PRESSLEY APRN) Alcohol Use: None Drug Use: None (MISA PRESSLEY APRN) Attending Signature I have participated in the care of this patient and I have reviewed and agree with all pertinent clinical information above including history, exam, and recommendations. (WIL YOST MD) Adult General Chief Complaint Chief Complaint: Neck Pain HPI HPI Patient is a 38 year old female who presents to the ED today complaining of 6 out of 10 right-sided neck pain radiating to her right upper extremity as well as her back, symptoms have been going on since 2017 and flared up in April 2019. She reports she has been seen by her PCP and was told there is nothing they can do for her. She states she is currently taking morphine pill for pancreatitis and it's not touching her pain. Patient denies any injury. Denies any chest pain or shortness of breath. She has spent quite a bit of time complaining the morphine not working for her pain. Denies anything specifically exacerbating or relieving her symptoms. (MISA PRESSLEY APRN) Review of Systems Review of Systems Constitutional: Denies fever or chills [] Eyes: Denies change in visual acuity, redness, or eye pain [] HENT: Denies nasal congestion or sore throat [] Respiratory: Denies cough or shortness of breath [] Cardiovascular: No additional information not addressed in HPI [] GI: Denies abdominal pain, nausea, vomiting, bloody stools or diarrhea [] : Denies dysuria or hematuria [] Musculoskeletal: Reports neck pain Integument: Denies rash or skin lesions [] Neurologic: Denies headache, focal weakness or sensory changes [] All other systems were reviewed and found to be within normal limits, except as documented in this note. (MISA PRESSLEY APRN) Allergies Allergies Allergies Coded Allergies Type Severity Reaction Last Updated Verified hydrocodone Allergy Intermediate itch 11/21/16 Yes oxycodone Allergy Intermediate itch 11/21/16 Yes (WIL YOST MD) Physical Exam Physical Exam Constitutional: Well developed, well nourished, no acute distress, non-toxic appearance. [] HENT: Normocephalic, atraumatic, bilateral external ears normal, oropharynx moist, no oral exudates, nose normal. [] Eyes: PERRLA, EOMI, conjunctiva normal, no discharge. [] Neck: Refused ROM to the neck, no tenderness, supple, no stridor. [] Cardiovascular:Heart rate regular rhythm, no murmur [] Lungs & Thorax: Bilateral breath sounds clear to auscultation [] Abdomen: Bowel sounds normal, soft, no tenderness, no masses, no pulsatile masses. [] Skin: Warm, dry, no erythema, no rash. [] Back: No tenderness, no CVA tenderness. [] Extremities: No tenderness, no cyanosis, no clubbing, ROM intact, no edema. [] Neurologic: Alert and oriented X 3, normal motor function, normal sensory function, no focal deficits noted. [] Psychologic: Affect normal, judgement normal, mood normal. [] (MISA PRESSLEY APRN) Current Patient Data Vital Signs Vital Signs Date Time Temp Pulse Resp B/P (MAP) Pulse Ox O2 Delivery O2 Flow Rate FiO2 08/02/19 18:00 98.8 76 16 144/101 (115) 99 Room Air 98.8 (WIL YOST MD) EKG EKG [] (MISA PRESSLEY APRN) Radiology/Procedures Radiology/Procedures [] (MISA PRESSLEY APRN) Course & Med Decision Making Course & Med Decision Making Pertinent Labs and Imaging studies reviewed. (See chart for details) This is a 38-year-old female patient presenting to the ED today complaining of right-sided neck pain radiating to her right upper extremity and back since 2018. Patient states the pain flared up in April 2019 and was seen by the PCP at who told her there is nothing they can do for her. She reports she is already taking morphine for pancreatitis which is not touching her neck pain. Informed patient I recommend [id number] remedies including Tylenol/ibuprofen which she stated she it is not working, i recommended heating pad, recommended following up with the specialists we talked about. Recommended Medrol Dosepak informed her I will not be able to give any pain medicine because she is already on the strong pain medicine (morphine) for her pancreatitis. She states she works for [employer]. Informed her she can follow up with spine doctor and pain clinic. (MISA PRESSLEY APRN) Shirley Disclaimer Shirley Disclaimer This electronic medical record was generated, in whole or in part, using a voice recognition dictation system. (MISA PRESSLEY APRN) Departure Departure Impression: Primary Impression: Chronic neck pain Disposition: HOME, SELF-CARE Condition: STABLE Referrals: ASTRID PHELPS (PCP) follow up in 1 week PACHECO RIVAS MD follow up in 1 week NELSY GUEVARA MD follow up in 1 week Patient Instructions: Musculoskeletal Pain Additional Instructions: You were evaluated in the emergency room for chronic neck pain. Please consider following up with one of the spine doctors at [employer] and pain clinic or the provided doctors from [place]. Continue following up with your primary care doctor. Consider using a heating pad. You can try and change your mattress and pillow and see if that works. Follow-up with your own doctor in the course of this week. Scripts Methylprednisolone (MEDROL) 4 Mg Tab.ds.pk 1 PKG PO UD, #1 PKG Prov: MISA PRESSLEY APRN 08/02/19 MISA PRESSLEY APRN Aug 02, 2019 18:31 WIL YOST MD Aug 02, 2019 18:53
== END 2019-08-02 18:46 | disposition home or self-care (01) ==
LOC: ER 17:50
DX: G89.29 Other chronic pain (principal); M54.2 Cervicalgia; M79.601 Pain in right arm; I11.0 Hypertensive heart disease with heart failure; I50.9 Heart failure, unspecified; K58.9 Irritable bowel syndrome, unspecified; Z95.5 Presence of coronary angioplasty implant and graft; Z88.5 Allergy status to narcotic agent
CPT/HCPCS: 99283

== ENCOUNTER 2019-09-28 02:31 | Inpatient (IN) | payer OTHER ==
[~2019-09-28] VITALS: Ht 170.2 cm; Wt 107.7 kg
[~2019-09-28 02:31] MED LIST changes: +METH4TAB2 PO; -VALA500T PO; +VALA500T9 PO
[2019-09-28 03:48] LABS: BILIRUBIN,URINE NEGATIVE (NEG); CLARITY,URINE CLEAR; COLOR,URINE YELLOW; NITRITE,URINE NEGATIVE (NEG); PH,URINE 5.5 (<5.0-8.0); PROTEIN,URINE NEGATIVE (NEG-TRACE); UROBILINOGEN,URINE 0.2 mg/dL (0.2 mg/dL)
[2019-09-28 03:59] LABS: BACTERIA,URINE FEW /HPF (0-FEW); SQUAMOUS EPITHELIAL CELL,UR MOD /LPF; WBC,URINE OCC /HPF (0-4)
[2019-09-28 04:06] LABS: U PREG PATIENT NEGATIVE (NEG)
[2019-09-28] MEDS ORDERED: MORPHINE SULFATE 4 MG/ML VIAL. IV ONE (04:15)
[2019-09-28] MEDS ORDERED: PHENAZOPYRIDINE 200 MG TABLET. PO ONE (04:15)
[2019-09-28] MEDS ORDERED: KETOROLAC 30 MG/ML VIAL. IVP ONE (04:15)
[2019-09-28] MEDS ORDERED: ONDANSETRON PF 4 MG/2 ML VIAL. IVP ONE (04:15)
[2019-09-28 04:22] LABS: BASO % 1 % (0-3); EOS # 0.1 x10^3/uL (0.0-0.7); EOS % 1 % (0-3); HEMATOCRIT 36.6 % (36.0-47.0); HEMOGLOBIN 12.2 g/dL (12.0-15.5); LYMPH # 1.9 x10^3/uL (1.0-4.8); LYMPH % 22 % (24-48); MEAN CORPUSCULAR HEMOGLOBIN 28 pg (25-35); MEAN CORPUSCULAR HGB CONC 33 g/dL (31-37); MEAN CORPUSCULAR VOLUME 83 fL (79-100); MONO # 0.6 x10^3/uL (0.0-1.1); MONO % 7 % (0-9); NEUT % 70 % (31-73); PLATELET COUNT 368 x10^3/uL (140-400); RED BLOOD COUNT 4.41 x10^6/uL (3.50-5.40); RED CELL DISTRIBUTION WIDTH 15.1 % (11.5-14.5); WHITE BLOOD COUNT 8.7 x10^3/uL (4.0-11.0)
[2019-09-28 04:33] LABS: ALBUMIN 3.6 g/dL (3.4-5.0); ALBUMIN/GLOBULIN RATIO 0.9 (1.0-1.7); CALCIUM 8.6 mg/dL (8.5-10.1); CREATININE 0.7 mg/dL (0.6-1.0); GFR 92.7; POTASSIUM 3.8 mmol/L (3.5-5.1); TOTAL BILIRUBIN 0.3 mg/dL (0.2-1.0); TOTAL PROTEIN 7.4 g/dL (6.4-8.2)
[2019-09-28] MEDS ORDERED: CONTRAST GIVEN. MC PRN (04:45)
[2019-09-28] MEDS ORDERED: IOHEXOL 300 MG/ML 100ML VIAL. IV ONE (04:45)
--- NOTE | 2019-09-28 05:34 | RAD ---
CT abdomen and pelvis with contrast: Reason for examination: Left lower quadrant pain. Comparison is made to previous study dated 02/07/2019. Helical images were obtained through the abdomen and pelvis with intravenous administration of 75 cc Omnipaque 300. Reconstruction was performed in sagittal and coronal planes. Exposure: One or more of the following individualized dose reduction techniques were utilized for this examination: 1. Automated exposure control 2. Adjustment of the mA and/or kV according to patient size 3. Use of iterative reconstruction technique. The lung bases are clear. The heart size is normal with no pericardial effusion. A small hypodense lesion is again seen posteriorly in the right lobe of the liver may represent a small hemangioma but is stable. No abnormality seen at the spleen or adrenal glands. Gallbladder surgically absent. Pancreas again shows prominence of the pancreatic duct is unchanged. The abdominal aorta and inferior vena cava show no abnormalities. No abnormality seen at the appendix. There are changes in the sigmoid colon consistent with diverticulitis with wall thickening and adjacent mesenteric inflammation. The kidneys show no renal masses, renal calculi, hydronephrosis or evidence of obstructive uropathy. No abnormality is seen at the bladder or vaginal cuff. There does appear to be a small amount of fluid in the pelvis. No acute bony abnormalities are seen. There are however some degenerative changes at the L5-S1 disc. IMPRESSION: Changes consistent with diverticulitis in the sigmoid colon. Small amount fluid in the pelvis. Degenerative disc disease at the L5-S1 disc level. Electronically signed by: Robyn Templeton MD (09/28/2019 5:31 AM) [id number]
--- NOTE | 2019-09-28 05:53 | PHYS DOC ---
Past Medical History Past Medical History: Anemia, CHF, Hypertension, IBS, Pancreatitis, STD, Other Additional Past Medical Histor: leaky valves, chronic back pain, fissure Past Surgical History: Cholecystectomy, Hysterectomy, Tubal ligation, Other Additional Past Surgical Histo: cardiac cath, cardiac ablation Smoking Status: Never Smoker Alcohol Use: None Drug Use: None Adult General Chief Complaint Chief Complaint: ABDOMINAL PAIN HPI HPI Patient is a 38 year old female -[place] with history of pancreatitis who presents with left lower quadrant pain since yesterday. Pain is described sharp, radiates to groin. Is rated moderate to severe worse with palpation and movement. An not improved with anything.. Symptoms were preceded with nausea and vomiting 1 and loose stools. She reports urinary urgency,. No hematuria, frequency or burning. Reports chronic bilateral lower lumbar pain. No other acute symptoms or complaints.. Review of Systems Review of Systems ROS as per HPI. All other systems were reviewed and found to be within normal limits, except as documented in this note. Current Medications Current Medications Current Medications Medications (Trade) Dose Ordered Sig/Saima Start Time Stop Time Status Last Admin Dose Admin Info (CONTRAST GIVEN -- Rx MONITORING) 1 each PRN DAILY PRN 09/28/19 04:45 09/30/19 04:44 Iohexol (Omnipaque 300 Mg/ml) 75 ml 1X ONCE 09/28/19 04:45 09/28/19 04:46 DC 09/28/19 05:11 75 ML Ketorolac Tromethamine (Toradol 30mg Vial) 30 mg 1X ONCE 09/28/19 04:15 09/28/19 04:16 DC 09/28/19 04:21 30 MG Levofloxacin/ Dextrose 150 ml @ 100 mls/hr 1X ONCE 09/28/19 05:45 09/28/19 07:14 UNV Metronidazole 100 ml @ 100 mls/hr 1X ONCE 09/28/19 05:45 09/28/19 06:44 UNV Morphine Sulfate (Morphine Sulfate) 4 mg 1X ONCE 09/28/19 04:15 09/28/19 04:16 DC 09/28/19 04:22 4 MG Ondansetron HCl (Zofran) 4 mg 1X ONCE 09/28/19 04:15 09/28/19 04:16 DC 09/28/19 04:22 4 MG Phenazopyridine HCl (Pyridium) 200 mg 1X ONCE 09/28/19 04:15 09/28/19 04:16 DC 09/28/19 04:22 200 MG Allergies Allergies Allergies Coded Allergies Type Severity Reaction Last Updated Verified hydrocodone Allergy Intermediate itch 11/21/16 Yes oxycodone Allergy Intermediate itch 11/21/16 Yes Physical Exam Physical Exam Constitutional: Well developed, well nourished, no acute distress, significant discomfort secondary to pain.. [] HENT: Normocephalic, atraumatic, bilateral external ears normal, oropharynx moist, no oral exudates, nose normal. [] Eyes: PERRLA, EOMI, conjunctiva normal, no discharge. [] Neck: Normal range of motion, no tenderness. [] Cardiovascular:Heart rate regular rhythm. [] Lungs & Thorax: Bilateral breath sounds clear to auscultation. [] Abdomen: Bowel sounds normal, soft, LLQ pain/tenderness. [] Skin: Warm, dry, no erythema, no rash. [] Back: No tenderness, no CVA tenderness. [] Extremities: No tenderness, no cyanosis, no clubbing, ROM intact, no edema. [] Neurologic: Alert and oriented X 3, normal motor function, normal sensory function, no focal deficits noted. [] Psychologic: Affect normal, judgement normal, mood normal. [] Current Patient Data Vital Signs Vital Signs Date Time Temp Pulse Resp B/P (MAP) Pulse Ox O2 Delivery O2 Flow Rate FiO2 09/28/19 04:22 18 99 Room Air 09/28/19 03:14 99.1 84 153/79 (103) 99.1 Lab Values Laboratory Tests Test 09/28/19 03:18 09/28/19 03:57 Urine Collection Type Unknown Urine Color Yellow Urine Clarity Clear Urine pH 5.5 (<5.0-8.0) Urine Specific [place] 1.025 (1.000-1.030) Urine Protein Negative mg/dL (NEG-TRACE) Urine Glucose (UA) Negative mg/dL (NEG) Urine Ketones (Stick) Negative mg/dL (NEG) Urine Blood Small (NEG) Urine Nitrite Negative (NEG) Urine Bilirubin Negative (NEG) Urine Urobilinogen Dipstick 0.2 mg/dL (0.2 mg/dL) Urine Leukocyte Esterase Negative (NEG) Urine RBC 6-10 /HPF (0-2) Urine WBC Occ /HPF (0-4) Urine Squamous Epithelial Cells Mod /LPF Urine Bacteria Few /HPF (0-FEW) Urine Mucus Marked /LPF Urine Test Negative (NEG) White Blood Count 8.7 x10^3/uL (4.0-11.0) Red Blood Count 4.41 x10^6/uL (3.50-5.40) Hemoglobin 12.2 g/dL (12.0-15.5) Hematocrit 36.6 % (36.0-47.0) Mean Corpuscular Volume 83 fL (79-100) Mean Corpuscular Hemoglobin 28 pg (25-35) Mean Corpuscular Hemoglobin Concent 33 g/dL (31-37) Red Cell Distribution Width 15.1 % (11.5-14.5) H Platelet Count 368 x10^3/uL (140-400) Neutrophils (%) (Auto) 70 % (31-73) Lymphocytes (%) (Auto) 22 % (24-48) L Monocytes (%) (Auto) 7 % (0-9) Eosinophils (%) (Auto) 1 % (0-3) Basophils (%) (Auto) 1 % (0-3) Neutrophils # (Auto) 6.0 x10^3/uL (1.8-7.7) Lymphocytes # (Auto) 1.9 x10^3/uL (1.0-4.8) Monocytes # (Auto) 0.6 x10^3/uL (0.0-1.1) Eosinophils # (Auto) 0.1 x10^3/uL (0.0-0.7) Basophils # (Auto) 0.0 x10^3/uL (0.0-0.2) Sodium Level 141 mmol/L (136-145) Potassium Level 3.8 mmol/L (3.5-5.1) Chloride Level 104 mmol/L (98-107) Carbon Dioxide Level 28 mmol/L (21-32) Anion Gap 9 (6-14) Blood Urea Nitrogen 9 mg/dL (7-20) Creatinine 0.7 mg/dL (0.6-1.0) Estimated GFR (Cockcroft-Gault) 92.7 BUN/Creatinine Ratio 13 (6-20) Glucose Level 102 mg/dL (70-99) H Lactic Acid Level 1.3 mmol/L (0.4-2.0) Calcium Level 8.6 mg/dL (8.5-10.1) Total Bilirubin 0.3 mg/dL (0.2-1.0) Aspartate Amino Transferase (AST) 12 U/L (15-37) L Alanine Aminotransferase (ALT) 25 U/L (14-59) Alkaline Phosphatase 55 U/L (46-116) Total Protein 7.4 g/dL (6.4-8.2) Albumin 3.6 g/dL (3.4-5.0) Albumin/Globulin Ratio 0.9 (1.0-1.7) L Lipase 74 U/L (73-393) Laboratory Tests 09/28/19 03:57 Laboratory Tests 09/28/19 03:57 EKG EKG [] Radiology/Procedures Radiology/Procedures [CT abdomen pelvis: Acute diverticulitis] Course & Med Decision Making Course & Med Decision Making Pertinent Labs and Imaging studies reviewed. (See chart for details) [V pain medications antibiotics given. Symptoms improved with treatment. Will admit to the hospitalist service.] Dragon Disclaimer Dragon Disclaimer This electronic medical record was generated, in whole or in part, using a voice recognition dictation system. Departure Departure Impression: Primary Impression: Acute diverticulitis Disposition: ADMITTED INPATIENT Condition: STABLE Referrals: ASTRID PHELPS (PCP) LEXUS IRBY DO Sep 28, 2019 05:53
[2019-09-28] MEDS ORDERED: ONDANSETRON PF 4 MG/2 ML VIAL. IV PRN ×2 (06:00→13:00)
[2019-09-28] MEDS: IV NORMAL SALINE 1000ML BAG 1,000 ML IV SCH ×4 (06:29→22:00)
[2019-09-28 07:30] VITALS: BP 143/76
[2019-09-28] MEDS ORDERED: MORP15TA PO (09:36)
[2019-09-28] MEDS ORDERED: LIPA1TAB4 PO ×2 (09:36)
[2019-09-28] MEDS ORDERED: FERR325T14 PO (09:36)
[2019-09-28] MEDS ORDERED: CYAN100031 PO (09:36)
[2019-09-28] MEDS ORDERED: PANT40TA77 PO (09:36)
[2019-09-28] MEDS ORDERED: ASPI81TA50 PO (09:36)
[2019-09-28] MEDS ORDERED: CYCL10TA2 PO (09:36)
[2019-09-28] MEDS ORDERED: VALA10008 PO (09:36)
[2019-09-28] MEDS ORDERED: METF500T11 PO (09:36)
[2019-09-28] MEDS ORDERED: PREG75CA PO (09:36)
[2019-09-28] MEDS ORDERED: NORT25CA PO (09:36)
[2019-09-28] MEDS ORDERED: LATA2.5D3 OP (09:38)
--- NOTE | 2019-09-28 10:25 | NUR ---
SW following. Discussed with RN, pt from home with family, up ad cary. RN advised no SW needs at this time. SW will continue to follow.
[2019-09-28] MEDS: MORPHINE SULFATE 2 MG/ML VIAL. IV PRN ×2 (10:29→16:19)
--- NOTE | 2019-09-28 10:56 | PDOC1 ---
History and Physical Date of Admission Date of Admission DATE: 09/28/19 TIME: 10:54 Identification/Chief Complaint Chief Complaint seen in er with acute diverticulitis 38 year old female -[place] with history of pancreatitis who presents with left lower quadrant pain since 09/25 . Pain is described sharp, radiates to groin. Is rated moderate to severe worse with palpation and movement. not improved with anything.. Symptoms were preceded with nausea and vomiting 1 and loose stools. She reports urinary urgency,. No hematuria, frequency or burni ng. Reports chronic bilateral lower lumbar pain.// chronic pancreatitis of unclear etiology Past Medical History Past Medical History Past Medical History Past Medical History Past Medical History: Anemia, CHF, Hypertension, IBS, Pancreatitis, STD, Other Additional Past Medical Histor: leaky valves, chronic back pain, fissure Past Surgical History: Cholecystectomy, Hysterectomy, Tubal ligation, Other Additional Past Surgical Histo: cardiac cath, cardiac ablation Smoking Status: Never Smoker Alcohol Use: None Drug Use: None FHX HTN Family History Family History: Hypertension Social History Smoke: No ALCOHOL: none Current Problem List Problem List Problems Medical Problems: (1) Acute diverticulitis Status: Acute Current Medications Current Medications Current Medications Phenazopyridine HCl (Pyridium) 200 mg 1X ONCE PO Last administered on 09/28/19at 04:22; Start 09/28/19 at 04:15; Stop 09/28/19 at 04:16; Status DC Ketorolac Tromethamine (Toradol 30mg Vial) 30 mg 1X ONCE IVP Last administered on 09/28/19at 04:21; Start 09/28/19 at 04:15; Stop 09/28/19 at 04:16; Status DC Morphine Sulfate (Morphine Sulfate) 4 mg 1X ONCE IV Last administered on 09/28/19at 04:22; Start 09/28/19 at 04:15; Stop 09/28/19 at 04:16; Status DC Ondansetron HCl (Zofran) 4 mg 1X ONCE IVP Last administered on 09/28/19at 04:22; Start 09/28/19 at 04:15; Stop 09/28/19 at 04:16; Status DC Iohexol (Omnipaque 300 Mg/ml) 75 ml 1X ONCE IV Last administered on 09/28/19at 05:11; Start 09/28/19 at 04:45; Stop 09/28/19 at 04:46; Status DC Info (CONTRAST GIVEN -- Rx MONITORING) 1 each PRN DAILY PRN MC SEE COMMENTS; Start 09/28/19 at 04:45; Stop 09/30/19 at 04:44 Metronidazole 100 ml @ 100 mls/hr 1X ONCE IV Last administered on 09/28/19at 06:29; Start 09/28/19 at 06:00; Stop 09/28/19 at 06:59; Status DC Levofloxacin/ Dextrose 150 ml @ 100 mls/hr 1X ONCE IV Last administered on 09/28/19at 09:12; Start 09/28/19 at 06:00; Stop 09/28/19 at 07:29; Status DC Ondansetron HCl (Zofran) 4 mg PRN Q8HRS PRN IV NAUSEA/VOMITING; Start 09/28/19 at 06:00; Stop 09/29/19 at 05:59 Morphine Sulfate (Morphine Sulfate) 2 mg PRN Q2HR PRN IV PAIN Last administered on 09/28/19at 10:29; Start 09/28/19 at 06:00; Stop 09/29/19 at 05:59 Sodium Chloride 1,000 ml @ 125 mls/hr Q8H IV Last administered on 09/28/19at 06:29; Start 09/28/19 at 06:00; Stop 09/29/19 at 05:59 Active Scripts Active Ondansetron Odt (Ondansetron) 4 Mg Tab.rapdis 1 Tab PO PRN Q6-8HRS Ultram (Tramadol Hcl) 50 Mg Tablet 50 Mg PO Q6H PRN Reported Latanoprost 2.5 Ml Drops 1 Drop OP HS Viokace 20,880-78,300 Units Tb (Lipase/Protease/Amylase) 1 Each Tablet 2 Tab PO BIDBFRMEAL PRN 30 Days Viokace 20,880-78,300 Units Tb (Lipase/Protease/Amylase) 1 Each Tablet 3 Tab PO TIDBFRMEAL 30 Days Valacyclovir (Valacyclovir Hcl) 1,000 Mg Tablet 1 Tab PO PRN BID B-12 (Cyanocobalamin (Vitamin B-12)) 1,000 Mcg Tablet.er 1 Tab PO DAILY 30 Days Ferrous Sulfate 325 Mg Tablet 1 Tab PO DAILY Pantoprazole Sodium (Pantoprazole Sodium) 40 Mg Tablet.dr 40 Mg PO HS Cyclobenzaprine Hcl 10 Mg Tablet 1 Tab PO PRN DAILY PRN Metformin Hcl Er (Metformin Hcl) 500 Mg Tab.er.24h 500 Mg PO PRN DAILY Nortriptyline Hcl 25 Mg Capsule 2 Cap PO QHS Morphine Sulfate 15 Mg Tablet 1 Tab PO PRN Q4HRS PRN Aspir-Low (Aspirin) 81 Mg Tablet.dr 1 Tab PO DAILY Lyrica (Pregabalin) 75 Mg Capsule 1 Cap PO BID Allergies Allergies: Coded Allergies: hydrocodone (Verified Allergy, Intermediate, itch, 11/21/16) reports that she can have tylenol #3 oxycodone (Verified Allergy, Intermediate, itch, 11/21/16) reports that she can have tylenol #3 ROS Review of System Review of Systems Review of Systems ROS as per HPI. 14 pt systems were reviewed and found to be within normal limits, except as documented General: No: Chills, Night Sweats, Fatigue, Malaise, Appetite, Other Eyes: No Blurry vision, No Decreased vision, No Double vision, No Dry eyes, No Excessive tearing, No Eye Pain, No Itchy Eyes, No Loss of vision, No Photophobia, No [place]om[place], No Uses contacts, No Uses glasses, No Other HEENT: No: Heacaches, Visual Changes, Hearing change, Nasal congestion, Nasal discharge, Oral lesions, Sinus pain, Sore Throat, Epistaxis, Sneezing, Snoring, Tinnitus, Vertigo, Vocal changes, Other Hematological and Lymphatic: No: Bleeding Problems, Blood Clots, Blood Transfusions, Brusing, Night Sweats, Pallor, Swollen Lymph Nodes, Other Respiratory: No: Cough, Hemoptysis, Orthopnea, Pleuritic Pain, Shortness of breath, SOB with excertion, Sputum Changes, Stridor, Tachypnea, Wheezing, Other Gastrointestinal: Yes Abdominal Pain Genitourinary: YES Dysuria Musculoskeletal: No Gait Disturbance, No Joint Pain, No Joint Stiffness, No Joint Swelling, No Muscle Pain, No Muscular Weakness, No Pain In:, No Swelling In:, No Other Skin: No Dry Skin, No Eczema, No Hair Changes, No Lumps, No Mole Changes, No Mottling, No Nail Changes, No Pruritus, No Rash, No Skin Lesion Changes, No Other, No Acne Physical Exam Physical Exam Physical Exam Physical Exam Constitutional: Well developed, well nourished, no acute distress, significant discomfort secondary to pain.. [] HENT: Normocephalic, atraumatic, bilateral external ears normal, oropharynx moist, no oral exudates, nose normal. [] Eyes: PERRLA, EOMI, conjunctiva normal, no discharge. [] Neck: Normal range of motion, no tenderness. [] Cardiovascular:Heart rate regular rhythm. [] Lungs & Thorax: Bilateral breath sounds clear to auscultation. [] Abdomen: Bowel sounds normal, soft, LLQ pain/tenderness. [] Skin: Warm, dry, no erythema, no rash. [] Back: No tenderness, no CVA tenderness. [] Extremities: No tenderness, no cyanosis, no clubbing, ROM intact, no edema. [] Neurologic: Alert and oriented X 3, normal motor function, normal sensory function, no focal deficits noted. [] Psychologic: Affect normal, judgement normal, mood normal. [] General: Alert, Oriented X3, Cooperative, No acute distress HEENT: EOMI, Mucous membr. moist/pink Lungs: Clear to auscultation, Normal air movement Heart: RRR Breasts: Not examined Abdomen: Soft Rectal Exam: not examined PELVIC: Examination not indicated Extremities: No cyanosis, No edema Skin: No significant lesion Neuro: Normal speech, Cranial nerves 3-12 NL Psych/Mental Status: Mental status NL, Mood NL Vitals Vitals Vital Signs Date Time Temp Pulse Resp B/P (MAP) Pulse Ox O2 Delivery O2 Flow Rate FiO2 09/28/19 09:00 Room Air 09/28/19 06:30 61 16 149/79 (102) 98 09/28/19 03:14 99.1 99.1 Labs Labs Laboratory Tests Test 09/28/19 03:18 09/28/19 03:57 Urine Collection Type Unknown Urine Color Yellow Urine Clarity Clear Urine pH 5.5 (<5.0-8.0) Urine Specific [place] 1.025 (1.000-1.030) Urine Protein Negative mg/dL (NEG-TRACE) Urine Glucose (UA) Negative mg/dL (NEG) Urine Ketones (Stick) Negative mg/dL (NEG) Urine Blood Small (NEG) Urine Nitrite Negative (NEG) Urine Bilirubin Negative (NEG) Urine Urobilinogen Dipstick 0.2 mg/dL (0.2 mg/dL) Urine Leukocyte Esterase Negative (NEG) Urine RBC 6-10 /HPF (0-2) Urine WBC Occ /HPF (0-4) Urine Squamous Epithelial Cells Mod /LPF Urine Bacteria Few /HPF (0-FEW) Urine Mucus Marked /LPF Urine Test Negative (NEG) White Blood Count 8.7 x10^3/uL (4.0-11.0) Red Blood Count 4.41 x10^6/uL (3.50-5.40) Hemoglobin 12.2 g/dL (12.0-15.5) Hematocrit 36.6 % (36.0-47.0) Mean Corpuscular Volume 83 fL (79-100) Mean Corpuscular Hemoglobin 28 pg (25-35) Mean Corpuscular Hemoglobin Concent 33 g/dL (31-37) Red Cell Distribution Width 15.1 % (11.5-14.5) Platelet Count 368 x10^3/uL (140-400) Neutrophils (%) (Auto) 70 % (31-73) Lymphocytes (%) (Auto) 22 % (24-48) Monocytes (%) (Auto) 7 % (0-9) Eosinophils (%) (Auto) 1 % (0-3) Basophils (%) (Auto) 1 % (0-3) Neutrophils # (Auto) 6.0 x10^3/uL (1.8-7.7) Lymphocytes # (Auto) 1.9 x10^3/uL (1.0-4.8) Monocytes # (Auto) 0.6 x10^3/uL (0.0-1.1) Eosinophils # (Auto) 0.1 x10^3/uL (0.0-0.7) Basophils # (Auto) 0.0 x10^3/uL (0.0-0.2) Sodium Level 141 mmol/L (136-145) Potassium Level 3.8 mmol/L (3.5-5.1) Chloride Level 104 mmol/L (98-107) Carbon Dioxide Level 28 mmol/L (21-32) Anion Gap 9 (6-14) Blood Urea Nitrogen 9 mg/dL (7-20) Creatinine 0.7 mg/dL (0.6-1.0) Estimated GFR (Cockcroft-Gault) 92.7 BUN/Creatinine Ratio 13 (6-20) Glucose Level 102 mg/dL (70-99) Lactic Acid Level 1.3 mmol/L (0.4-2.0) Calcium Level 8.6 mg/dL (8.5-10.1) Total Bilirubin 0.3 mg/dL (0.2-1.0) Aspartate Amino Transf (AST/SGOT) 12 U/L (15-37) Alanine Aminotransferase (ALT/SGPT) 25 U/L (14-59) Alkaline Phosphatase 55 U/L (46-116) Total Protein 7.4 g/dL (6.4-8.2) Albumin 3.6 g/dL (3.4-5.0) Albumin/Globulin Ratio 0.9 (1.0-1.7) Lipase 74 U/L (73-393) Laboratory Tests Test 09/28/19 03:18 09/28/19 03:57 Urine Collection Type Unknown Urine Color Yellow Urine Clarity Clear Urine pH 5.5 (<5.0-8.0) Urine Specific [place] 1.025 (1.000-1.030) Urine Protein Negative mg/dL (NEG-TRACE) Urine Glucose (UA) Negative mg/dL (NEG) Urine Ketones (Stick) Negative mg/dL (NEG) Urine Blood Small (NEG) Urine Nitrite Negative (NEG) Urine Bilirubin Negative (NEG) Urine Urobilinogen Dipstick 0.2 mg/dL (0.2 mg/dL) Urine Leukocyte Esterase Negative (NEG) Urine RBC 6-10 /HPF (0-2) Urine WBC Occ /HPF (0-4) Urine Squamous Epithelial Cells Mod /LPF Urine Bacteria Few /HPF (0-FEW) Urine Mucus Marked /LPF Urine Test Negative (NEG) White Blood Count 8.7 x10^3/uL (4.0-11.0) Red Blood Count 4.41 x10^6/uL (3.50-5.40) Hemoglobin 12.2 g/dL (12.0-15.5) Hematocrit 36.6 % (36.0-47.0) Mean Corpuscular Volume 83 fL (79-100) Mean Corpuscular Hemoglobin 28 pg (25-35) Mean Corpuscular Hemoglobin Concent 33 g/dL (31-37) Red Cell Distribution Width 15.1 % (11.5-14.5) Platelet Count 368 x10^3/uL (140-400) Neutrophils (%) (Auto) 70 % (31-73) Lymphocytes (%) (Auto) 22 % (24-48) Monocytes (%) (Auto) 7 % (0-9) Eosinophils (%) (Auto) 1 % (0-3) Basophils (%) (Auto) 1 % (0-3) Neutrophils # (Auto) 6.0 x10^3/uL (1.8-7.7) Lymphocytes # (Auto) 1.9 x10^3/uL (1.0-4.8) Monocytes # (Auto) 0.6 x10^3/uL (0.0-1.1) Eosinophils # (Auto) 0.1 x10^3/uL (0.0-0.7) Basophils # (Auto) 0.0 x10^3/uL (0.0-0.2) Sodium Level 141 mmol/L (136-145) Potassium Level 3.8 mmol/L (3.5-5.1) Chloride Level 104 mmol/L (98-107) Carbon Dioxide Level 28 mmol/L (21-32) Anion Gap 9 (6-14) Blood Urea Nitrogen 9 mg/dL (7-20) Creatinine 0.7 mg/dL (0.6-1.0) Estimated GFR (Cockcroft-Gault) 92.7 BUN/Creatinine Ratio 13 (6-20) Glucose Level 102 mg/dL (70-99) Lactic Acid Level 1.3 mmol/L (0.4-2.0) Calcium Level 8.6 mg/dL (8.5-10.1) Total Bilirubin 0.3 mg/dL (0.2-1.0) Aspartate Amino Transf (AST/SGOT) 12 U/L (15-37) Alanine Aminotransferase (ALT/SGPT) 25 U/L (14-59) Alkaline Phosphatase 55 U/L (46-116) Total Protein 7.4 g/dL (6.4-8.2) Albumin 3.6 g/dL (3.4-5.0) Albumin/Globulin Ratio 0.9 (1.0-1.7) Lipase 74 U/L (73-393) Images Images CT abdomen and pelvis with contrast: Reason for examination: Left lower quadrant pain. Comparison is made to previous study dated 02/07/2019. Helical images were obtained through the abdomen and pelvis with intravenous administration of 75 cc Omnipaque 300. Reconstruction was performed in sagittal and coronal planes. Exposure: One or more of the following individualized dose reduction techniques were utilized for this examination: 1. Automated exposure control 2. Adjustment of the mA and/or kV according to patient size 3. Use of iterative reconstruction technique. The lung bases are clear. The heart size is normal with no pericardial effusion. A small hypodense lesion is again seen posteriorly in the right lobe of the liver may represent a small hemangioma but is stable. No abnormality seen at the spleen or adrenal glands. Gallbladder surgically absent. Pancreas again shows prominence of the pancreatic duct is unchanged. The abdominal aorta and inferior vena cava show no abnormalities. No abnormality seen at the appendix. There are changes in the sigmoid colon consistent with diverticulitis with wall thickening and adjacent mesenteric inflammation. The kidneys show no renal masses, renal calculi, hydronephrosis or evidence of obstructive uropathy. No abnormality is seen at the bladder or vaginal cuff. There does appear to be a small amount of fluid in the pelvis. No acute bony abnormalities are seen. There are however some degenerative changes at the L5-S1 disc. IMPRESSION: Changes consistent with diverticulitis in the sigmoid colon. Small amount fluid in the pelvis. Degenerative disc disease at the L5-S1 disc level. Electronically signed by: Robyn Singh MD (09/28/2019 5:31 AM) [id number] DICTATED and SIGNED BY: ROBYN SINGH MD DATE: 09/28/19 0531 VTE Prophylaxis Ordered VTE Prophylaxis Devices: No VTE Pharmacological Prophylaxi: Yes Assessment/Plan Assessment/Plan IMPRESSION: ACUTE diverticulitis // sigmoid colon. Small amount fluid in the pelvis. Degenerative disc disease at the L5-S1 disc level. Morbid obesity hx chf chronic pancreatitis of unclear etiology plan admit npo iv antibiotics GI CONSULT home meds dvt prophylaxis iv fluid support DORINA MATTHEWS MD Sep 28, 2019 10:56
[2019-09-28 11:30] VITALS: BP 128/67
--- NOTE | 2019-09-28 12:01 | PDOC2 ---
GI CONSULT Reason For Consult: acute diverticulitis HPI: HPI: 38 y/o female w/ LLQ "stabbing and aching" pain wrapping around to back since yesterday. Has chronic abd pain - epigastric related to chronic pancreatitis and "across the bottom" which has occurred intermittently x 2 years. Current pain is different. Associated w/ loose stool x 3 yesterday though not unusual for her to have loose stool. Followed by GI @ . H/o IBS-M - never has to take medication for diarrhea or constipation. Not sure if she has GERD but takes pantoprazole QHS w/ nortriptyline. H/o SARTHAK on PO iron, also takes B12. On pancreatic enzymes TID for chronic pancreatitis of unclear etiology as mentioned above. For pain, additionally takes Tramadol, morphine PRN, goes to ER for pain relief PRN, and Lyrica. Past workup at includes EGD, colonoscopy, SBCE, GES, CTs, and MRIs (due to repeat this on 10/09/19) - all reportedly without significant findings except "chronic pancreatitis" and "liver lesions." Says GES showed rapid emptying and "then is slowed down but they said not to worry about it." Past imaging here has noted diverticulosis, possible hemangiomas, possible hepatic steatosis, and prominent pancreatic duct. No dysphagia, n/v, hematochezia, or melena. Appetite unchanged - usually eats small meals. Says weight fluctuates. No h/o hepatitis or liver biopsy. Daily ASA. PMH: PMH: SARTHAK, pre-DM, HSV tubal ligation, hysterectomy, cholecystectomy, cardiac cath, cardiac ablation FH: Family History: Cancer (paternal great aunt - colon), Other (grandmother - takes meds for GI problems) Social History: Smoke: No ALCOHOL: none Drugs: None ROS: GEN: Denies fevers, chills, sweats HEENT: Denies blurred vision, sore throat CV: Denies chest pain RESP: Denies shortness of air, cough GI: Per HPI : Denies hematuria, dysuria ENDO: weight fluctuates NEURO: Denies confusion, dizziness MSK: Denies weakness, joint pain/swelling SKIN: Denies jaundice, pruritus Vitals: Vitals: Vital Signs Date Time Temp Pulse Resp B/P (MAP) Pulse Ox O2 Delivery O2 Flow Rate FiO2 09/28/19 11:30 98.4 77 14 128/67 (87) 97 Room Air 98.4 Labs: Labs: Laboratory Tests Test 09/28/19 03:18 09/28/19 03:57 Urine Collection Type Unknown Urine Color Yellow Urine Clarity Clear Urine pH 5.5 (<5.0-8.0) Urine Specific [place] 1.025 (1.000-1.030) Urine Protein Negative mg/dL (NEG-TRACE) Urine Glucose (UA) Negative mg/dL (NEG) Urine Ketones (Stick) Negative mg/dL (NEG) Urine Blood Small (NEG) Urine Nitrite Negative (NEG) Urine Bilirubin Negative (NEG) Urine Urobilinogen Dipstick 0.2 mg/dL (0.2 mg/dL) Urine Leukocyte Esterase Negative (NEG) Urine RBC 6-10 /HPF (0-2) Urine WBC Occ /HPF (0-4) Urine Squamous Epithelial Cells Mod /LPF Urine Bacteria Few /HPF (0-FEW) Urine Mucus Marked /LPF Urine Test Negative (NEG) White Blood Count 8.7 x10^3/uL (4.0-11.0) Red Blood Count 4.41 x10^6/uL (3.50-5.40) Hemoglobin 12.2 g/dL (12.0-15.5) Hematocrit 36.6 % (36.0-47.0) Mean Corpuscular Volume 83 fL (79-100) Mean Corpuscular Hemoglobin 28 pg (25-35) Mean Corpuscular Hemoglobin Concent 33 g/dL (31-37) Red Cell Distribution Width 15.1 % (11.5-14.5) Platelet Count 368 x10^3/uL (140-400) Neutrophils (%) (Auto) 70 % (31-73) Lymphocytes (%) (Auto) 22 % (24-48) Monocytes (%) (Auto) 7 % (0-9) Eosinophils (%) (Auto) 1 % (0-3) Basophils (%) (Auto) 1 % (0-3) Neutrophils # (Auto) 6.0 x10^3/uL (1.8-7.7) Lymphocytes # (Auto) 1.9 x10^3/uL (1.0-4.8) Monocytes # (Auto) 0.6 x10^3/uL (0.0-1.1) Eosinophils # (Auto) 0.1 x10^3/uL (0.0-0.7) Basophils # (Auto) 0.0 x10^3/uL (0.0-0.2) Sodium Level 141 mmol/L (136-145) Potassium Level 3.8 mmol/L (3.5-5.1) Chloride Level 104 mmol/L (98-107) Carbon Dioxide Level 28 mmol/L (21-32) Anion Gap 9 (6-14) Blood Urea Nitrogen 9 mg/dL (7-20) Creatinine 0.7 mg/dL (0.6-1.0) Estimated GFR (Cockcroft-Gault) 92.7 BUN/Creatinine Ratio 13 (6-20) Glucose Level 102 mg/dL (70-99) Lactic Acid Level 1.3 mmol/L (0.4-2.0) Calcium Level 8.6 mg/dL (8.5-10.1) Total Bilirubin 0.3 mg/dL (0.2-1.0) Aspartate Amino Transf (AST/SGOT) 12 U/L (15-37) Alanine Aminotransferase (ALT/SGPT) 25 U/L (14-59) Alkaline Phosphatase 55 U/L (46-116) Total Protein 7.4 g/dL (6.4-8.2) Albumin 3.6 g/dL (3.4-5.0) Albumin/Globulin Ratio 0.9 (1.0-1.7) Lipase 74 U/L (73-393) Allergies: Coded Allergies: hydrocodone (Verified Allergy, Intermediate, itch, 11/21/16) reports that she can have tylenol #3 oxycodone (Verified Allergy, Intermediate, itch, 11/21/16) reports that she can have tylenol #3 Medications: Current Medications Medications (Trade) Dose Ordered Sig/Saima Route PRN Reason Start Time Stop Time Status Last Admin Dose Admin Phenazopyridine HCl (Pyridium) 200 mg 1X ONCE PO 09/28/19 04:15 09/28/19 04:16 DC 09/28/19 04:22 Ketorolac Tromethamine (Toradol 30mg Vial) 30 mg 1X ONCE IVP 09/28/19 04:15 09/28/19 04:16 DC 09/28/19 04:21 Morphine Sulfate (Morphine Sulfate) 4 mg 1X ONCE IV 09/28/19 04:15 09/28/19 04:16 DC 09/28/19 04:22 Ondansetron HCl (Zofran) 4 mg 1X ONCE IVP 09/28/19 04:15 09/28/19 04:16 DC 09/28/19 04:22 Iohexol (Omnipaque 300 Mg/ml) 75 ml 1X ONCE IV 09/28/19 04:45 09/28/19 04:46 DC 09/28/19 05:11 Metronidazole 100 ml @ 100 mls/hr 1X ONCE IV 09/28/19 06:00 09/28/19 06:59 DC 09/28/19 06:29 Levofloxacin/ Dextrose 150 ml @ 100 mls/hr 1X ONCE IV 09/28/19 06:00 09/28/19 07:29 DC 09/28/19 09:12 Morphine Sulfate (Morphine Sulfate) 2 mg PRN Q2HR PRN IV PAIN 09/28/19 06:00 09/29/19 05:59 09/28/19 10:29 Sodium Chloride 1,000 ml @ 125 mls/hr Q8H IV 09/28/19 06:00 09/29/19 05:59 09/28/19 06:29 Imaging: Imaging: CT A/P w/ IV contrast The lung bases are clear. The heart size is normal with no pericardial effusion. A small hypodense lesion is again seen posteriorly in the right lobe of the liver may represent a small hemangioma but is stable. No abnormality seen at the spleen or adrenal glands. Gallbladder surgically absent. Pancreas again shows prominence of the pancreatic duct is unchanged. The abdominal aorta and inferior vena cava show no abnormalities. No abnormality seen at the appendix. There are changes in the sigmoid colon consistent with diverticulitis with wall thickening and adjacent mesenteric inflammation. The kidneys show no renal masses, renal calculi, hydronephrosis or evidence of obstructive uropathy. No abnormality is seen at the bladder or vaginal cuff. There does appear to be a small amount of fluid in the pelvis. No acute bony abnormalities are seen. There are however some degenerative changes at the L5-S1 disc. IMPRESSION: Changes consistent with diverticulitis in the sigmoid colon. Small amount fluid in the pelvis. Degenerative disc disease at the L5-S1 disc level. PE: GEN: NAD HEENT: Atraumatic, PERRL LUNGS: CTAB HEART: RRR ABD: quiet BS, soft, most tender suprapubic, less so LLQ and epigastrium EXTREMITY: No edema SKIN: No rashes, no jaundice NEURO/PSYCH: A & O 3 A/P: A/P: LLQ/back pain ?UTI, h/o anemia (normal Hgb today) on iron and B12 Abnormal CT - c/w sigmoid diverticulitis Chronic abd pain - epigastrium, suprapubic/BLQ ?GERD - on PPI IBD-M CRC screen - UTD Diverticulosis S/p cholecystectomy Liver lesions - ?hemangiomas - stable, followed at "Chronic pancreatitis" - followed at , on Zenpep -- Started on IV Cipro and Flagyl per ER. ?NPO for now vs trial of clears - will review w/ Dr. Benson. Chronic pain per Dr. Manjarrez. Okay to continue regular GI meds including PPI, Zenpep, nortriptyline, etc. Follow-up w/ GI at . JAYDON HOWELL Sep 28, 2019 12:01
[2019-09-28] MEDS ORDERED: guaiFENesin ORAL 200 MG/10 ML LIQUID. PO PRN (13:00)
[2019-09-28] MEDS ORDERED: traMADol 50 MG TABLET PO PRN (13:00)
[2019-09-28] MEDS ORDERED: LORazepam 0.5 MG TABLET PO PRN (13:00)
[2019-09-28] MEDS ORDERED: ACETAMINOPHEN 325 MG TABLET. PO PRN (13:00)
[2019-09-28] MEDS ORDERED: DOCUSATE SODIUM 100 MG CAPSULE. PO PRN (13:00)
[2019-09-28] MEDS ORDERED: ONDANSETRON ODT 4 MG TAB.RAPDIS. PO PRN (13:00)
[2019-09-28] MEDS ORDERED: MAG HYDROX/ALUMINUM HYD/SIMETH 30 ML ORAL.SUSP PO PRN (13:00)
[2019-09-28] MEDS ORDERED: 0.9 % SODIUM CHLORIDE 10 ML DISP.SYRIN. IV PRN (13:00)
[2019-09-28] MEDS ORDERED: ACETAMINOPHEN 650 MG SUPP.RECT. PR PRN (13:00)
[2019-09-28] MEDS ORDERED: CYCLOBENZAPRINE 10 MG TABLET. PO PRN (13:00)
[2019-09-28] MEDS ORDERED: MORPHINE IR 15 MG TABLET PO PRN (13:00)
[2019-09-28] MEDS ORDERED: ALBUTEROL SULFATE 2.5 MG/3 ML NEBU. NEB PRN (13:00)
[2019-09-28] MEDS ORDERED: ZOLPIDEM 5 MG TABLET. PO PRN (13:00)
[2019-09-28] MEDS ORDERED: cloNIDine HCL 0.1 MG TABLET PO PRN (13:00)
[2019-09-28] MEDS ORDERED: ENOXAPARIN 40 MG/0.4 ML SYRINGE. SQ SCH (14:00)
[2019-09-28] MEDS: ASPIRIN ENTERIC COATED 81 MG TABLET.DR. PO SCH (14:53)
[2019-09-28] MEDS: CYANOCOBALAMIN (VITAMIN B-12) 1,000 MCG TABLET. PO SCH (14:54)
[2019-09-28] MEDS: PREGABALIN 75 MG CAPSULE PO SCH ×2 (14:54→21:27)
[2019-09-28] MEDS: FERROUS SULFATE 325 MG TABLET. PO SCH (14:54)
[2019-09-28 15:00] VITALS: BP 127/67
[2019-09-28 15:29] LABS: CALCIUM 8.3 mg/dL (8.5-10.1); CREATININE 0.7 mg/dL (0.6-1.0); GFR 92.7; POTASSIUM 3.8 mmol/L (3.5-5.1)
[2019-09-28] MEDS: LIPASE/PROTEAS/AMYLAS 10/32/42 CAPSULE.DR. PO SCH (17:00)
--- NOTE | 2019-09-28 18:27 | NUR ---
Bladder scanned patient after urinating. Patient retained 218mls, orders to place buckner catheter if retained grater than 200mls. Patients buckner catheter was place without any complications and patient tolerated procedure well. Will continue to monitor patient.
[2019-09-28 19:50] VITALS: BP 132/73
[2019-09-28] MEDS: LATANOPROST 0.005% OPHTH SOLUTION 2.5ML BOTTLE. OU SCH (21:22)
[2019-09-28] MEDS: CIPROFLOXACIN 400MG PREMIX 200 ML IV SCH (21:22)
[2019-09-28] MEDS: LACTOBACILLUS RHAMNOSUS GG 1 CAPSULE. PO SCH (21:27)
[2019-09-28] MEDS: NORTRIPTYLINE 25 MG CAPSULE PO SCH (21:28)
[2019-09-28] MEDS: PANTOPRAZOLE 40 MG TABLET.DR. PO SCH (21:28)
[2019-09-28] MEDS: ENOXAPARIN 40 MG/0.4 ML SYRINGE. SQ SCH (21:29)
[2019-09-28 23:08] VITALS: BP 122/60
[2019-09-29 03:50] VITALS: BP 137/70
[2019-09-29 05:03] LABS: BASO % 0 % (0-3); EOS # 0.1 x10^3/uL (0.0-0.7); EOS % 1 % (0-3); HEMATOCRIT 33.1 % (36.0-47.0); LYMPH # 1.5 x10^3/uL (1.0-4.8); LYMPH % 28 % (24-48); MEAN CORPUSCULAR HEMOGLOBIN 28 pg (25-35); MEAN CORPUSCULAR HGB CONC 33 g/dL (31-37); MEAN CORPUSCULAR VOLUME 83 fL (79-100); MONO # 0.4 x10^3/uL (0.0-1.1); MONO % 7 % (0-9); NEUT # 3.5 x10^3/uL (1.8-7.7); NEUT % 64 % (31-73); PLATELET COUNT 320 x10^3/uL (140-400); RED CELL DISTRIBUTION WIDTH 15.4 % (11.5-14.5); WHITE BLOOD COUNT 5.4 x10^3/uL (4.0-11.0)
[2019-09-29 05:10] LABS: CALCIUM 8.1 mg/dL (8.5-10.1); CREATININE 0.7 mg/dL (0.6-1.0); GFR 92.7; POTASSIUM 3.6 mmol/L (3.5-5.1)
[2019-09-29] MEDS: IV NORMAL SALINE 1000ML BAG 1,000 ML IV SCH ×2 (05:26→08:25)
[2019-09-29 07:00] VITALS: BP 129/59
[2019-09-29] MEDS: LIPASE/PROTEAS/AMYLAS 10/32/42 CAPSULE.DR. PO SCH ×3 (07:30→16:30)
--- NOTE | 2019-09-29 07:57 | PDOC ---
PROGRESS NOTES Chief Complaint Chief Complaint A/P: Acute sigmoid diverticulitis Degenerative disc disease at the L5-S1 disc level. Morbid obesity Chronic diastolic CHF Chronic pancreatitis of unclear etiology History of Present Illness History of Present Illness Ms Hirsch is a 38yo F w/ PMHx obesity, HTN, chronic pancreatitis admitted with abdominal pain found with sigmoid diverticulitis, treating with antibiotics. K 3.6. No CP or SOB. Had 200cc urinary retention, placed buckner catheter with a lot of relief. She is asking to have her diet advanced. Seen by GI. Vitals Vitals Vital Signs Date Time Temp Pulse Resp B/P (MAP) Pulse Ox O2 Delivery O2 Flow Rate FiO2 09/29/19 03:50 98.2 72 18 137/70 (92) 96 Room Air 98.2 Physical Exam General: Alert, Oriented X3, Cooperative, No acute distress Abdomen: Soft Extremities: No cyanosis, No edema Skin: No significant lesion Labs LABS Laboratory Tests Test 09/28/19 15:05 09/29/19 04:48 Sodium Level 144 mmol/L (136-145) 142 mmol/L (136-145) Potassium Level 3.8 mmol/L (3.5-5.1) 3.6 mmol/L (3.5-5.1) Chloride Level 105 mmol/L (98-107) 105 mmol/L (98-107) Carbon Dioxide Level 28 mmol/L (21-32) 26 mmol/L (21-32) Anion Gap 11 (6-14) 11 (6-14) Blood Urea Nitrogen 7 mg/dL (7-20) 8 mg/dL (7-20) Creatinine 0.7 mg/dL (0.6-1.0) 0.7 mg/dL (0.6-1.0) Estimated GFR (Cockcroft-Gault) 92.7 92.7 Glucose Level 88 mg/dL (70-99) 95 mg/dL (70-99) Calcium Level 8.3 mg/dL (8.5-10.1) 8.1 mg/dL (8.5-10.1) White Blood Count 5.4 x10^3/uL (4.0-11.0) Red Blood Count 4.00 x10^6/uL (3.50-5.40) Hemoglobin 11.0 g/dL (12.0-15.5) Hematocrit 33.1 % (36.0-47.0) Mean Corpuscular Volume 83 fL (79-100) Mean Corpuscular Hemoglobin 28 pg (25-35) Mean Corpuscular Hemoglobin Concent 33 g/dL (31-37) Red Cell Distribution Width 15.4 % (11.5-14.5) Platelet Count 320 x10^3/uL (140-400) Neutrophils (%) (Auto) 64 % (31-73) Lymphocytes (%) (Auto) 28 % (24-48) Monocytes (%) (Auto) 7 % (0-9) Eosinophils (%) (Auto) 1 % (0-3) Basophils (%) (Auto) 0 % (0-3) Neutrophils # (Auto) 3.5 x10^3/uL (1.8-7.7) Lymphocytes # (Auto) 1.5 x10^3/uL (1.0-4.8) Monocytes # (Auto) 0.4 x10^3/uL (0.0-1.1) Eosinophils # (Auto) 0.1 x10^3/uL (0.0-0.7) Basophils # (Auto) 0.0 x10^3/uL (0.0-0.2) Assessment and Plan Assessmemt and Plan Problems Medical Problems: (1) Acute diverticulitis Status: Acute Comment Review of Relevant I have reviewed the following items leslie (where applicable) has been applied. Labs Laboratory Tests Test 09/28/19 03:18 09/28/19 03:57 09/28/19 15:05 09/29/19 04:48 Urine Collection Type Unknown Urine Color Yellow Urine Clarity Clear Urine pH 5.5 (<5.0-8.0) Urine Specific [place] 1.025 (1.000-1.030) Urine Protein Negative mg/dL (NEG-TRACE) Urine Glucose (UA) Negative mg/dL (NEG) Urine Ketones (Stick) Negative mg/dL (NEG) Urine Blood Small (NEG) Urine Nitrite Negative (NEG) Urine Bilirubin Negative (NEG) Urine Urobilinogen Dipstick 0.2 mg/dL (0.2 mg/dL) Urine Leukocyte Esterase Negative (NEG) Urine RBC 6-10 /HPF (0-2) Urine WBC Occ /HPF (0-4) Urine Squamous Epithelial Cells Mod /LPF Urine Bacteria Few /HPF (0-FEW) Urine Mucus Marked /LPF Urine Test Negative (NEG) White Blood Count 8.7 x10^3/uL (4.0-11.0) 5.4 x10^3/uL (4.0-11.0) Red Blood Count 4.41 x10^6/uL (3.50-5.40) 4.00 x10^6/uL (3.50-5.40) Hemoglobin 12.2 g/dL (12.0-15.5) 11.0 g/dL (12.0-15.5) Hematocrit 36.6 % (36.0-47.0) 33.1 % (36.0-47.0) Mean Corpuscular Volume 83 fL (79-100) 83 fL (79-100) Mean Corpuscular Hemoglobin 28 pg (25-35) 28 pg (25-35) Mean Corpuscular Hemoglobin Concent 33 g/dL (31-37) 33 g/dL (31-37) Red Cell Distribution Width 15.1 % (11.5-14.5) 15.4 % (11.5-14.5) Platelet Count 368 x10^3/uL (140-400) 320 x10^3/uL (140-400) Neutrophils (%) (Auto) 70 % (31-73) 64 % (31-73) Lymphocytes (%) (Auto) 22 % (24-48) 28 % (24-48) Monocytes (%) (Auto) 7 % (0-9) 7 % (0-9) Eosinophils (%) (Auto) 1 % (0-3) 1 % (0-3) Basophils (%) (Auto) 1 % (0-3) 0 % (0-3) Neutrophils # (Auto) 6.0 x10^3/uL (1.8-7.7) 3.5 x10^3/uL (1.8-7.7) Lymphocytes # (Auto) 1.9 x10^3/uL (1.0-4.8) 1.5 x10^3/uL (1.0-4.8) Monocytes # (Auto) 0.6 x10^3/uL (0.0-1.1) 0.4 x10^3/uL (0.0-1.1) Eosinophils # (Auto) 0.1 x10^3/uL (0.0-0.7) 0.1 x10^3/uL (0.0-0.7) Basophils # (Auto) 0.0 x10^3/uL (0.0-0.2) 0.0 x10^3/uL (0.0-0.2) Sodium Level 141 mmol/L (136-145) 144 mmol/L (136-145) 142 mmol/L (136-145) Potassium Level 3.8 mmol/L (3.5-5.1) 3.8 mmol/L (3.5-5.1) 3.6 mmol/L (3.5-5.1) Chloride Level 104 mmol/L (98-107) 105 mmol/L (98-107) 105 mmol/L (98-107) Carbon Dioxide Level 28 mmol/L (21-32) 28 mmol/L (21-32) 26 mmol/L (21-32) Anion Gap 9 (6-14) 11 (6-14) 11 (6-14) Blood Urea Nitrogen 9 mg/dL (7-20) 7 mg/dL (7-20) 8 mg/dL (7-20) Creatinine 0.7 mg/dL (0.6-1.0) 0.7 mg/dL (0.6-1.0) 0.7 mg/dL (0.6-1.0) Estimated GFR (Cockcroft-Gault) 92.7 92.7 92.7 BUN/Creatinine Ratio 13 (6-20) Glucose Level 102 mg/dL (70-99) 88 mg/dL (70-99) 95 mg/dL (70-99) Lactic Acid Level 1.3 mmol/L (0.4-2.0) Calcium Level 8.6 mg/dL (8.5-10.1) 8.3 mg/dL (8.5-10.1) 8.1 mg/dL (8.5-10.1) Total Bilirubin 0.3 mg/dL (0.2-1.0) Aspartate Amino Transf (AST/SGOT) 12 U/L (15-37) Alanine Aminotransferase (ALT/SGPT) 25 U/L (14-59) Alkaline Phosphatase 55 U/L (46-116) Total Protein 7.4 g/dL (6.4-8.2) Albumin 3.6 g/dL (3.4-5.0) Albumin/Globulin Ratio 0.9 (1.0-1.7) Lipase 74 U/L (73-393) Laboratory Tests Test 09/28/19 15:05 09/29/19 04:48 Sodium Level 144 mmol/L (136-145) 142 mmol/L (136-145) Potassium Level 3.8 mmol/L (3.5-5.1) 3.6 mmol/L (3.5-5.1) Chloride Level 105 mmol/L (98-107) 105 mmol/L (98-107) Carbon Dioxide Level 28 mmol/L (21-32) 26 mmol/L (21-32) Anion Gap 11 (6-14) 11 (6-14) Blood Urea Nitrogen 7 mg/dL (7-20) 8 mg/dL (7-20) Creatinine 0.7 mg/dL (0.6-1.0) 0.7 mg/dL (0.6-1.0) Estimated GFR (Cockcroft-Gault) 92.7 92.7 Glucose Level 88 mg/dL (70-99) 95 mg/dL (70-99) Calcium Level 8.3 mg/dL (8.5-10.1) 8.1 mg/dL (8.5-10.1) White Blood Count 5.4 x10^3/uL (4.0-11.0) Red Blood Count 4.00 x10^6/uL (3.50-5.40) Hemoglobin 11.0 g/dL (12.0-15.5) Hematocrit 33.1 % (36.0-47.0) Mean Corpuscular Volume 83 fL (79-100) Mean Corpuscular Hemoglobin 28 pg (25-35) Mean Corpuscular Hemoglobin Concent 33 g/dL (31-37) Red Cell Distribution Width 15.4 % (11.5-14.5) Platelet Count 320 x10^3/uL (140-400) Neutrophils (%) (Auto) 64 % (31-73) Lymphocytes (%) (Auto) 28 % (24-48) Monocytes (%) (Auto) 7 % (0-9) Eosinophils (%) (Auto) 1 % (0-3) Basophils (%) (Auto) 0 % (0-3) Neutrophils # (Auto) 3.5 x10^3/uL (1.8-7.7) Lymphocytes # (Auto) 1.5 x10^3/uL (1.0-4.8) Monocytes # (Auto) 0.4 x10^3/uL (0.0-1.1) Eosinophils # (Auto) 0.1 x10^3/uL (0.0-0.7) Basophils # (Auto) 0.0 x10^3/uL (0.0-0.2) Medications Current Medications Phenazopyridine HCl (Pyridium) 200 mg 1X ONCE PO Last administered on 09/28/19at 04:22; Start 09/28/19 at 04:15; Stop 09/28/19 at 04:16; Status DC Ketorolac Tromethamine (Toradol 30mg Vial) 30 mg 1X ONCE IVP Last administered on 09/28/19at 04:21; Start 09/28/19 at 04:15; Stop 09/28/19 at 04:16; Status DC Morphine Sulfate (Morphine Sulfate) 4 mg 1X ONCE IV Last administered on 09/28/19at 04:22; Start 09/28/19 at 04:15; Stop 09/28/19 at 04:16; Status DC Ondansetron HCl (Zofran) 4 mg 1X ONCE IVP Last administered on 09/28/19at 04:22; Start 09/28/19 at 04:15; Stop 09/28/19 at 04:16; Status DC Iohexol (Omnipaque 300 Mg/ml) 75 ml 1X ONCE IV Last administered on 09/28/19at 05:11; Start 09/28/19 at 04:45; Stop 09/28/19 at 04:46; Status DC Info (CONTRAST GIVEN -- Rx MONITORING) 1 each PRN DAILY PRN MC SEE COMMENTS; Start 09/28/19 at 04:45; Stop 09/30/19 at 04:44 Metronidazole 100 ml @ 100 mls/hr 1X ONCE IV Last administered on 09/28/19at 06:29; Start 09/28/19 at 06:00; Stop 09/28/19 at 06:59; Status DC Levofloxacin/ Dextrose 150 ml @ 100 mls/hr 1X ONCE IV Last administered on 09/28/19at 09:12; Start 09/28/19 at 06:00; Stop 09/28/19 at 07:29; Status DC Ondansetron HCl (Zofran) 4 mg PRN Q8HRS PRN IV NAUSEA/VOMITING; Start 09/28/19 at 06:00; Stop 09/28/19 at 15:23; Status DC Morphine Sulfate (Morphine Sulfate) 2 mg PRN Q2HR PRN IV PAIN Last administered on 09/28/19at 16:19; Start 09/28/19 at 06:00; Stop 09/29/19 at 05:59; Status DC Sodium Chloride 1,000 ml @ 125 mls/hr Q8H IV Last administered on 09/28/19at 06:29; Start 09/28/19 at 06:00; Stop 09/29/19 at 05:59; Status DC Metronidazole 100 ml @ 100 mls/hr Q8HRS IV Last administered on 09/29/19at 05:28; Start 09/28/19 at 14:00 Ciprofloxacin/ Dextrose 200 ml @ 200 mls/hr Q12HR IV Last administered on 09/28/19at 21:22; Start 09/28/19 at 21:00 Aspirin (Ecotrin) 81 mg DAILY PO Last administered on 09/28/19at 14:53; Start 09/28/19 at 14:00 Cyclobenzaprine HCl (Flexeril) 10 mg PRN DAILY PRN PO MUSCLE SPASMS; Start 09/28/19 at 13:00 Ferrous Sulfate (Feosol) 325 mg DAILY08 PO Last administered on 09/28/19at 14:54; Start 09/28/19 at 14:00 Latanoprost (Xalatan) 1 drop HS OU Last administered on 09/28/19at 21:22; Start 09/28/19 at 21:00 Morphine Sulfate (Morphine Ir) 15 mg PRN Q4HRS PRN PO SEVERE PAIN 7-10; Start 09/28/19 at 13:00 Nortriptyline HCl (Pamelor) 50 mg QHS PO Last administered on 09/28/19at 21:28; Start 09/28/19 at 21:00 Ondansetron HCl (Zofran Odt) 4 mg PRN Q4HRS PRN PO NAUSEA; Start 09/28/19 at 13:00 Pantoprazole Sodium (Protonix) 40 mg HS PO Last administered on 09/28/19at 21:28; Start 09/28/19 at 21:00 Pregabalin (Lyrica) 75 mg BID PO Last administered on 09/28/19at 21:27; Start 09/28/19 at 14:00 Tramadol HCl (Ultram) 50 mg PRN Q6HRS PRN PO MODERATE PAIN; Start 09/28/19 at 13:00 Cyanocobalamin (Vitamin B-12) 1,000 mcg DAILY PO Last administered on 09/28/19at 14:54; Start 09/28/19 at 14:00 Amylase/Lipase/ Protease (Zenpep 10,000) 2 cap TIDBFRMEAL PO ; Start 09/28/19 at 17:00 Sodium Chloride (Normal Saline Flush) 3 ml QSHIFT PRN IV AFTER MEDS AND BLOOD DRAWS; Start 09/28/19 at 13:00 Sodium Chloride 1,000 ml @ 100 mls/hr Q10H IV Last administered on 09/29/19at 05:26; Start 09/28/19 at 12:58 Ondansetron HCl (Zofran) 4 mg PRN Q4HRS PRN IV NAUSEA/VOMITING Last administered on 09/28/19at 21:33; Start 09/28/19 at 13:00 Zolpidem Tartrate (Ambien) 5 mg PRN QHS PRN PO INSOMNIA; Start 09/28/19 at 13:00 Acetaminophen (Tylenol) 650 mg PRN Q4HRS PRN PO TEMP OVER 100.4F OR MILD PAIN Last administered on 09/28/19at 16:05; Start 09/28/19 at 13:00 Acetaminophen (Tylenol Supp) 650 mg PRN Q4HRS PRN MO TEMP OVER 100.4F OR MILD PAIN; Start 09/28/19 at 13:00 Al Hydroxide/Mg Hydroxide (Mylanta Plus Xs) 30 ml PRN DAILY PRN PO HEARTBURN / GAS; Start 09/28/19 at 13:00 Clonidine HCl (Catapres) 0.1 mg PRN Q6HRS PRN PO SBP>160 OR DBP>90; Start 09/28/19 at 13:00 Docusate Sodium (Colace) 100 mg PRN BID PRN PO CONSTIPATION; Start 09/28/19 at 13:00 Albuterol Sulfate (Ventolin Neb Soln) 2.5 mg PRN Q4HRS PRN NEB SHORTNESS OF BREATH; Start 09/28/19 at 13:00 Guaifenesin (Robitussin) 200 mg PRN Q4HRS PRN PO COUGH; Start 09/28/19 at 13:00 Lorazepam (Ativan) 0.5 mg PRN Q4HRS PRN PO ANXIETY / AGITATION; Start 09/28/19 at 13:00 Enoxaparin Sodium (Lovenox 40mg Syringe) 40 mg Q24H SQ ; Start 09/28/19 at 14:00; Stop 09/28/19 at 15:03; Status DC Enoxaparin Sodium (Lovenox 40mg Syringe) 40 mg Q24H SQ Last administered on 09/28/19at 21:29; Start 09/28/19 at 21:00 Lactobacillus Rhamnosus (Culturelle) 1 cap BID PO Last administered on 09/28/19at 21:27; Start 09/28/19 at 21:00 Active Scripts Active Ondansetron Odt (Ondansetron) 4 Mg Tab.rapdis 1 Tab PO PRN Q6-8HRS Ultram (Tramadol Hcl) 50 Mg Tablet 50 Mg PO Q6H PRN Reported Latanoprost 2.5 Ml Drops 1 Drop OP HS Viokace 20,880-78,300 Units Tb (Lipase/Protease/Amylase) 1 Each Tablet 2 Tab PO BIDBFRMEAL PRN 30 Days Viokace 20,880-78,300 Units Tb (Lipase/Protease/Amylase) 1 Each Tablet 3 Tab PO TIDBFRMEAL 30 Days Valacyclovir (Valacyclovir Hcl) 1,000 Mg Tablet 1 Tab PO PRN BID B-12 (Cyanocobalamin (Vitamin B-12)) 1,000 Mcg Tablet.er 1 Tab PO DAILY 30 Days Ferrous Sulfate 325 Mg Tablet 1 Tab PO DAILY Pantoprazole Sodium (Pantoprazole Sodium) 40 Mg Tablet.dr 40 Mg PO HS Cyclobenzaprine Hcl 10 Mg Tablet 1 Tab PO PRN DAILY PRN Metformin Hcl Er (Metformin Hcl) 500 Mg Tab.er.24h 500 Mg PO PRN DAILY Nortriptyline Hcl 25 Mg Capsule 2 Cap PO QHS Morphine Sulfate 15 Mg Tablet 1 Tab PO PRN Q4HRS PRN Aspir-Low (Aspirin) 81 Mg Tablet.dr 1 Tab PO DAILY Lyrica (Pregabalin) 75 Mg Capsule 1 Cap PO BID Vitals/I & O Vital Sign - Last 24 Hours 09/28/19 09/28/19 09/28/19 09/28/19 09:00 09:00 11:09 11:30 Temp 98.4 98.4 Pulse 77 Resp 14 B/P (MAP) 128/67 (87) Pulse Ox 97 O2 Delivery Room Air Room Air Room Air Room Air 09/28/19 09/28/19 09/28/19 09/28/19 15:00 15:48 16:19 17:34 Temp 98.2 98.2 Pulse 73 Resp 16 B/P (MAP) 127/67 (87) Pulse Ox 98 98 O2 Delivery Room Air Room Air Room Air Room Air 09/28/19 09/28/19 09/28/19 09/29/19 19:50 20:00 23:08 03:50 Temp 98.6 98.5 98.2 98.6 98.5 98.2 Pulse 78 80 72 Resp 18 18 18 B/P (MAP) 132/73 (92) 122/60 (80) 137/70 (92) Pulse Ox 95 95 96 O2 Delivery Room Air Room Air Room Air Room Air Intake and Output 09/28/19 09/28/19 09/29/19 15:00 23:00 07:00 Intake Total 300 ml 150 ml Output Total 1300 ml Balance 300 ml -1150 ml WILMER CROUCH MD Sep 29, 2019 07:57
[2019-09-29] MEDS: FERROUS SULFATE 325 MG TABLET. PO SCH (08:00)
[2019-09-29] MEDS ORDERED: POTASSIUM CHLORIDE 20 MEQ TABLET.ER. PO ONE (08:00)
[2019-09-29] MEDS: ASPIRIN ENTERIC COATED 81 MG TABLET.DR. PO SCH (08:18)
[2019-09-29] MEDS: CYANOCOBALAMIN (VITAMIN B-12) 1,000 MCG TABLET. PO SCH (08:18)
[2019-09-29] MEDS: LACTOBACILLUS RHAMNOSUS GG 1 CAPSULE. PO SCH ×2 (08:19→21:14)
[2019-09-29] MEDS: CIPROFLOXACIN 400MG PREMIX 200 ML IV SCH ×2 (08:22→21:15)
[2019-09-29] MEDS: PREGABALIN 75 MG CAPSULE PO SCH ×2 (08:26→21:16)
--- NOTE | 2019-09-29 10:42 | PDOC ---
Subjective: Subjective: Says not doing okay with clear liquids because she needs more to eat. Pain improved since catheter placed. No stools. Objective: Vital Signs: Vital Signs Date Time Temp Pulse Resp B/P (MAP) Pulse Ox O2 Delivery O2 Flow Rate FiO2 09/29/19 07:00 98.8 84 19 129/59 (82) 96 Room Air 98.8 Labs: Laboratory Tests Test 09/28/19 15:05 09/29/19 04:48 Sodium Level 144 mmol/L 142 mmol/L Potassium Level 3.8 mmol/L 3.6 mmol/L Chloride Level 105 mmol/L 105 mmol/L Carbon Dioxide Level 28 mmol/L 26 mmol/L Anion Gap 11 11 Blood Urea Nitrogen 7 mg/dL 8 mg/dL Creatinine 0.7 mg/dL 0.7 mg/dL Estimated GFR (Cockcroft-Gault) 92.7 92.7 Glucose Level 88 mg/dL 95 mg/dL Calcium Level 8.3 mg/dL 8.1 mg/dL White Blood Count 5.4 x10^3/uL Red Blood Count 4.00 x10^6/uL Hemoglobin 11.0 g/dL Hematocrit 33.1 % Mean Corpuscular Volume 83 fL Mean Corpuscular Hemoglobin 28 pg Mean Corpuscular Hemoglobin Concent 33 g/dL Red Cell Distribution Width 15.4 % Platelet Count 320 x10^3/uL Neutrophils (%) (Auto) 64 % Lymphocytes (%) (Auto) 28 % Monocytes (%) (Auto) 7 % Eosinophils (%) (Auto) 1 % Basophils (%) (Auto) 0 % Neutrophils # (Auto) 3.5 x10^3/uL Lymphocytes # (Auto) 1.5 x10^3/uL Monocytes # (Auto) 0.4 x10^3/uL Eosinophils # (Auto) 0.1 x10^3/uL Basophils # (Auto) 0.0 x10^3/uL PE: GEN: NAD, talking on the phone LUNGS: CTAB HEART: RRR ABD: suprapubic tenderness much improved - no tenderness LLQ, BS present, abd soft NEURO/PSYCH: A & O 3 A/P: Diverticulitis - lower abd pain better Chronic GI pain/issues -- D/w nurse this morning - try full liquids next, ADAT. ?PO atbx Continue normal GI meds (PPI, Zenpep, etc). Hemodynamically unstable?: No Is patient in severe pain?: No Is NPO status required?: No JAYDON HOWELL Sep 29, 2019 10:42
[2019-09-29 11:00] VITALS: BP 124/62
--- NOTE | 2019-09-29 11:51 | NUR ---
SW following. Discussed with RN, pt from home, regular diet, room air. RN advised no SW needs at this time. SW will continue to follow.
[2019-09-29 15:00] VITALS: BP 129/75
[2019-09-29 19:00] VITALS: BP 123/50
[2019-09-29] MEDS: ENOXAPARIN 40 MG/0.4 ML SYRINGE. SQ SCH (21:00)
[2019-09-29] MEDS: PANTOPRAZOLE 40 MG TABLET.DR. PO SCH (21:13)
[2019-09-29] MEDS: LATANOPROST 0.005% OPHTH SOLUTION 2.5ML BOTTLE. OU SCH (21:15)
[2019-09-29] MEDS: NORTRIPTYLINE 25 MG CAPSULE PO SCH (21:15)
[2019-09-29 22:46] VITALS: BP 116/64
[2019-09-30] MEDS: IV NORMAL SALINE 1000ML BAG 1,000 ML IV SCH ×4 (01:09→20:15)
[2019-09-30 02:51] VITALS: BP 122/71
[2019-09-30] MEDS: LIPASE/PROTEAS/AMYLAS 10/32/42 CAPSULE.DR. PO SCH ×3 (07:30→16:36)
[2019-09-30] MEDS: CYANOCOBALAMIN (VITAMIN B-12) 1,000 MCG TABLET. PO SCH (09:34)
[2019-09-30] MEDS: ASPIRIN ENTERIC COATED 81 MG TABLET.DR. PO SCH (09:34)
[2019-09-30] MEDS: FERROUS SULFATE 325 MG TABLET. PO SCH (09:35)
[2019-09-30] MEDS: LACTOBACILLUS RHAMNOSUS GG 1 CAPSULE. PO SCH ×2 (09:35→21:18)
[2019-09-30] MEDS: CIPROFLOXACIN 400MG PREMIX 200 ML IV SCH ×2 (09:36→21:14)
[2019-09-30] MEDS: PREGABALIN 75 MG CAPSULE PO SCH ×2 (09:44→21:18)
--- NOTE | 2019-09-30 09:58 | PDOC ---
PROGRESS NOTES Chief Complaint Chief Complaint IMPRESSION Acute sigmoid diverticulitis Degenerative disc disease at the L5-S1 disc level. Morbid obesity Chronic diastolic CHF Chronic pancreatitis of unclear etiology plan admit iv antibiotics GI CONSULT home meds dvt prophylaxis iv fluid support If IMPROVING , home on po antibiotics. soon 09/29 llq pain slow to resolve History of Present Illness History of Present Illness Ms Hirsch is a 38yo F w/ PMHx obesity, HTN, chronic pancreatitis admitted with abdominal pain found with sigmoid diverticulitis, treating with antibiotics. No CP or SOB. Had 200cc urinary retention, placed buckner catheter with a lot of relief. //diet advanced. Seen by GI. If trend continues, home on po antibiotics. Vitals Vitals Vital Signs Date Time Temp Pulse Resp B/P (MAP) Pulse Ox O2 Delivery O2 Flow Rate FiO2 09/30/19 02:51 97.9 77 18 122/71 (88) 97 Room Air 97.9 Physical Exam General: Alert, Oriented X3, Cooperative, No acute distress Heart: Regular rate Lungs: Clear Abdomen: Normal bowel sounds, Soft Extremities: No cyanosis, No edema Skin: No significant lesion Assessment and Plan Assessmemt and Plan Problems Medical Problems: (1) Acute diverticulitis Status: Acute Comment Review of Relevant I have reviewed the following items leslie (where applicable) has been applied. Labs Laboratory Tests Test 09/28/19 15:05 09/29/19 04:48 Sodium Level 144 mmol/L (136-145) 142 mmol/L (136-145) Potassium Level 3.8 mmol/L (3.5-5.1) 3.6 mmol/L (3.5-5.1) Chloride Level 105 mmol/L (98-107) 105 mmol/L (98-107) Carbon Dioxide Level 28 mmol/L (21-32) 26 mmol/L (21-32) Anion Gap 11 (6-14) 11 (6-14) Blood Urea Nitrogen 7 mg/dL (7-20) 8 mg/dL (7-20) Creatinine 0.7 mg/dL (0.6-1.0) 0.7 mg/dL (0.6-1.0) Estimated GFR (Cockcroft-Gault) 92.7 92.7 Glucose Level 88 mg/dL (70-99) 95 mg/dL (70-99) Calcium Level 8.3 mg/dL (8.5-10.1) 8.1 mg/dL (8.5-10.1) White Blood Count 5.4 x10^3/uL (4.0-11.0) Red Blood Count 4.00 x10^6/uL (3.50-5.40) Hemoglobin 11.0 g/dL (12.0-15.5) Hematocrit 33.1 % (36.0-47.0) Mean Corpuscular Volume 83 fL (79-100) Mean Corpuscular Hemoglobin 28 pg (25-35) Mean Corpuscular Hemoglobin Concent 33 g/dL (31-37) Red Cell Distribution Width 15.4 % (11.5-14.5) Platelet Count 320 x10^3/uL (140-400) Neutrophils (%) (Auto) 64 % (31-73) Lymphocytes (%) (Auto) 28 % (24-48) Monocytes (%) (Auto) 7 % (0-9) Eosinophils (%) (Auto) 1 % (0-3) Basophils (%) (Auto) 0 % (0-3) Neutrophils # (Auto) 3.5 x10^3/uL (1.8-7.7) Lymphocytes # (Auto) 1.5 x10^3/uL (1.0-4.8) Monocytes # (Auto) 0.4 x10^3/uL (0.0-1.1) Eosinophils # (Auto) 0.1 x10^3/uL (0.0-0.7) Basophils # (Auto) 0.0 x10^3/uL (0.0-0.2) Medications Current Medications Phenazopyridine HCl (Pyridium) 200 mg 1X ONCE PO Last administered on 09/28/19at 04:22; Start 09/28/19 at 04:15; Stop 09/28/19 at 04:16; Status DC Ketorolac Tromethamine (Toradol 30mg Vial) 30 mg 1X ONCE IVP Last administered on 09/28/19at 04:21; Start 09/28/19 at 04:15; Stop 09/28/19 at 04:16; Status DC Morphine Sulfate (Morphine Sulfate) 4 mg 1X ONCE IV Last administered on 09/28/19at 04:22; Start 09/28/19 at 04:15; Stop 09/28/19 at 04:16; Status DC Ondansetron HCl (Zofran) 4 mg 1X ONCE IVP Last administered on 09/28/19at 04:22; Start 09/28/19 at 04:15; Stop 09/28/19 at 04:16; Status DC Iohexol (Omnipaque 300 Mg/ml) 75 ml 1X ONCE IV Last administered on 09/28/19at 05:11; Start 09/28/19 at 04:45; Stop 09/28/19 at 04:46; Status DC Info (CONTRAST GIVEN -- Rx MONITORING) 1 each PRN DAILY PRN MC SEE COMMENTS; Start 09/28/19 at 04:45; Stop 09/30/19 at 04:44; Status DC Metronidazole 100 ml @ 100 mls/hr 1X ONCE IV Last administered on 09/28/19at 06:29; Start 09/28/19 at 06:00; Stop 09/28/19 at 06:59; Status DC Levofloxacin/ Dextrose 150 ml @ 100 mls/hr 1X ONCE IV Last administered on 09/28/19at 09:12; Start 09/28/19 at 06:00; Stop 09/28/19 at 07:29; Status DC Ondansetron HCl (Zofran) 4 mg PRN Q8HRS PRN IV NAUSEA/VOMITING; Start 09/28/19 at 06:00; Stop 09/28/19 at 15:23; Status DC Morphine Sulfate (Morphine Sulfate) 2 mg PRN Q2HR PRN IV PAIN Last administered on 09/28/19at 16:19; Start 09/28/19 at 06:00; Stop 09/29/19 at 05:59; Status DC Sodium Chloride 1,000 ml @ 125 mls/hr Q8H IV Last administered on 09/28/19at 06:29; Start 09/28/19 at 06:00; Stop 09/29/19 at 05:59; Status DC Metronidazole 100 ml @ 100 mls/hr Q8HRS IV Last administered on 09/30/19at 05:37; Start 09/28/19 at 14:00 Ciprofloxacin/ Dextrose 200 ml @ 200 mls/hr Q12HR IV Last administered on 09/30/19at 09:36; Start 09/28/19 at 21:00 Aspirin (Ecotrin) 81 mg DAILY PO Last administered on 09/30/19 09:34; Start 09/28/19 at 14:00 Cyclobenzaprine HCl (Flexeril) 10 mg PRN DAILY PRN PO MUSCLE SPASMS; Start 09/28/19 at 13:00 Ferrous Sulfate (Feosol) 325 mg DAILY08 PO Last administered on 09/30/19at 09:35; Start 09/28/19 at 14:00 Latanoprost (Xalatan) 1 drop HS OU Last administered on 09/29/19at 21:15; Start 09/28/19 at 21:00 Morphine Sulfate (Morphine Ir) 15 mg PRN Q4HRS PRN PO SEVERE PAIN 7-10; Start 09/28/19 at 13:00 Nortriptyline HCl (Pamelor) 50 mg QHS PO Last administered on 09/29/19 21:15; Start 09/28/19 at 21:00 Ondansetron HCl (Zofran Odt) 4 mg PRN Q4HRS PRN PO NAUSEA; Start 09/28/19 at 13:00 Pantoprazole Sodium (Protonix) 40 mg HS PO Last administered on 09/29/19 21:13; Start 09/28/19 at 21:00 Pregabalin (Lyrica) 75 mg BID PO Last administered on 09/30/19at 09:44; Start 09/28/19 at 14:00 Tramadol HCl (Ultram) 50 mg PRN Q6HRS PRN PO MODERATE PAIN; Start 09/28/19 at 13:00 Cyanocobalamin (Vitamin B-12) 1,000 mcg DAILY PO Last administered on 09/30/19at 09:34; Start 09/28/19 at 14:00 Amylase/Lipase/ Protease (Zenpep 10,000) 2 cap TIDBFRMEAL PO Last administered on 09/29/19at 16:30; Start 09/28/19 at 17:00 Sodium Chloride (Normal Saline Flush) 3 ml QSHIFT PRN IV AFTER MEDS AND BLOOD DRAWS; Start 09/28/19 at 13:00 Sodium Chloride 1,000 ml @ 100 mls/hr Q10H IV Last administered on 09/30/19at 01:09; Start 09/28/19 at 12:58 Ondansetron HCl (Zofran) 4 mg PRN Q4HRS PRN IV NAUSEA/VOMITING Last administered on 09/28/19at 21:33; Start 09/28/19 at 13:00 Zolpidem Tartrate (Ambien) 5 mg PRN QHS PRN PO INSOMNIA; Start 09/28/19 at 13:00 Acetaminophen (Tylenol) 650 mg PRN Q4HRS PRN PO TEMP OVER 100.4F OR MILD PAIN Last administered on 09/28/19at 16:05; Start 09/28/19 at 13:00 Acetaminophen (Tylenol Supp) 650 mg PRN Q4HRS PRN MD TEMP OVER 100.4F OR MILD PAIN; Start 09/28/19 at 13:00 Al Hydroxide/Mg Hydroxide (Mylanta Plus Xs) 30 ml PRN DAILY PRN PO HEARTBURN / GAS; Start 09/28/19 at 13:00 Clonidine HCl (Catapres) 0.1 mg PRN Q6HRS PRN PO SBP>160 OR DBP>90; Start 09/28/19 at 13:00 Docusate Sodium (Colace) 100 mg PRN BID PRN PO CONSTIPATION; Start 09/28/19 at 13:00 Albuterol Sulfate (Ventolin Neb Soln) 2.5 mg PRN Q4HRS PRN NEB SHORTNESS OF BREATH; Start 09/28/19 at 13:00 Guaifenesin (Robitussin) 200 mg PRN Q4HRS PRN PO COUGH; Start 09/28/19 at 13:00 Lorazepam (Ativan) 0.5 mg PRN Q4HRS PRN PO ANXIETY / AGITATION; Start 09/28/19 at 13:00 Enoxaparin Sodium (Lovenox 40mg Syringe) 40 mg Q24H SQ ; Start 09/28/19 at 14:00; Stop 09/28/19 at 15:03; Status DC Enoxaparin Sodium (Lovenox 40mg Syringe) 40 mg Q24H SQ Last administered on 09/28/19at 21:29; Start 09/28/19 at 21:00 Lactobacillus Rhamnosus (Culturelle) 1 cap BID PO Last administered on 09/30/19at 09:35; Start 09/28/19 at 21:00 Potassium Chloride (Klor-Con) 40 meq 1X ONCE PO Last administered on 09/29/19at 08:19; Start 09/29/19 at 08:00; Stop 09/29/19 at 08:01; Status DC Active Scripts Active Ondansetron Odt (Ondansetron) 4 Mg Tab.rapdis 1 Tab PO PRN Q6-8HRS Ultram (Tramadol Hcl) 50 Mg Tablet 50 Mg PO Q6H PRN Reported Latanoprost 2.5 Ml Drops 1 Drop OP HS Viokace 20,880-78,300 Units Tb (Lipase/Protease/Amylase) 1 Each Tablet 2 Tab PO BIDBFRMEAL PRN 30 Days Viokace 20,880-78,300 Units Tb (Lipase/Protease/Amylase) 1 Each Tablet 3 Tab PO TIDBFRMEAL 30 Days Valacyclovir (Valacyclovir Hcl) 1,000 Mg Tablet 1 Tab PO PRN BID B-12 (Cyanocobalamin (Vitamin B-12)) 1,000 Mcg Tablet.er 1 Tab PO DAILY 30 Days Ferrous Sulfate 325 Mg Tablet 1 Tab PO DAILY Pantoprazole Sodium (Pantoprazole Sodium) 40 Mg Tablet.dr 40 Mg PO HS Cyclobenzaprine Hcl 10 Mg Tablet 1 Tab PO PRN DAILY PRN Metformin Hcl Er (Metformin Hcl) 500 Mg Tab.er.24h 500 Mg PO PRN DAILY Nortriptyline Hcl 25 Mg Capsule 2 Cap PO QHS Morphine Sulfate 15 Mg Tablet 1 Tab PO PRN Q4HRS PRN Aspir-Low (Aspirin) 81 Mg Tablet. 1 Tab PO DAILY Lyrica (Pregabalin) 75 Mg Capsule 1 Cap PO BID Vitals/I & O Vital Sign - Last 24 Hours 09/29/19 09/29/19 09/29/19 09/29/19 11:00 15:00 19:00 20:07 Temp 98.5 98.9 98.4 98.5 98.9 98.4 Pulse 72 72 76 Resp 16 16 16 B/P (MAP) 124/62 (82) 129/75 (93) 123/50 (74) Pulse Ox 96 97 97 O2 Delivery Room Air Room Air Room Air Room Air 09/29/19 09/30/19 22:46 02:51 Temp 98.4 97.9 98.4 97.9 Pulse 67 77 Resp 16 18 B/P (MAP) 116/64 (81) 122/71 (88) Pulse Ox 97 97 O2 Delivery Room Air Room Air Intake and Output 09/29/19 09/29/19 09/30/19 15:00 23:00 07:00 Intake Total 320 ml 400 ml Output Total 450 ml 1800 ml Balance -450 ml 320 ml -1400 ml Hemodynamically unstable?: No Is patient in severe pain?: No Is NPO status required?: No DORINA MATTHEWS MD Sep 30, 2019 09:58
[2019-09-30 11:00] VITALS: BP 126/79
--- NOTE | 2019-09-30 13:00 | PDOC ---
G I PROGRESS NOTE Subjective Denies much pain. On regular diet and tolerating. Hasn't stooled, but does not feel the need. Physical Exam Lungs clear. RRR Abdomen soft, Less tender LLQ. Review of Relevant I have reviewed the following items leslie (where applicable) has been applied. Labs Laboratory Tests Test 09/28/19 15:05 09/29/19 04:48 Sodium Level 144 mmol/L (136-145) 142 mmol/L (136-145) Potassium Level 3.8 mmol/L (3.5-5.1) 3.6 mmol/L (3.5-5.1) Chloride Level 105 mmol/L (98-107) 105 mmol/L (98-107) Carbon Dioxide Level 28 mmol/L (21-32) 26 mmol/L (21-32) Anion Gap 11 (6-14) 11 (6-14) Blood Urea Nitrogen 7 mg/dL (7-20) 8 mg/dL (7-20) Creatinine 0.7 mg/dL (0.6-1.0) 0.7 mg/dL (0.6-1.0) Estimated GFR (Cockcroft-Gault) 92.7 92.7 Glucose Level 88 mg/dL (70-99) 95 mg/dL (70-99) Calcium Level 8.3 mg/dL (8.5-10.1) 8.1 mg/dL (8.5-10.1) White Blood Count 5.4 x10^3/uL (4.0-11.0) Red Blood Count 4.00 x10^6/uL (3.50-5.40) Hemoglobin 11.0 g/dL (12.0-15.5) Hematocrit 33.1 % (36.0-47.0) Mean Corpuscular Volume 83 fL (79-100) Mean Corpuscular Hemoglobin 28 pg (25-35) Mean Corpuscular Hemoglobin Concent 33 g/dL (31-37) Red Cell Distribution Width 15.4 % (11.5-14.5) Platelet Count 320 x10^3/uL (140-400) Neutrophils (%) (Auto) 64 % (31-73) Lymphocytes (%) (Auto) 28 % (24-48) Monocytes (%) (Auto) 7 % (0-9) Eosinophils (%) (Auto) 1 % (0-3) Basophils (%) (Auto) 0 % (0-3) Neutrophils # (Auto) 3.5 x10^3/uL (1.8-7.7) Lymphocytes # (Auto) 1.5 x10^3/uL (1.0-4.8) Monocytes # (Auto) 0.4 x10^3/uL (0.0-1.1) Eosinophils # (Auto) 0.1 x10^3/uL (0.0-0.7) Basophils # (Auto) 0.0 x10^3/uL (0.0-0.2) Vitals/I & O Vital Sign - Last 24 Hours 09/29/19 09/29/19 09/29/19 09/29/19 15:00 19:00 20:07 22:46 Temp 98.9 98.4 98.4 98.9 98.4 98.4 Pulse 72 76 67 Resp 16 16 16 B/P (MAP) 129/75 (93) 123/50 (74) 116/64 (81) Pulse Ox 97 97 97 O2 Delivery Room Air Room Air Room Air Room Air 09/30/19 02:51 Temp 97.9 97.9 Pulse 77 Resp 18 B/P (MAP) 122/71 (88) Pulse Ox 97 O2 Delivery Room Air Intake and Output 09/29/19 09/29/19 09/30/19 15:00 23:00 07:00 Intake Total 320 ml 400 ml Output Total 450 ml 1800 ml Balance -450 ml 320 ml -1400 ml Problem List Problems Medical Problems: (1) Acute diverticulitis Status: Acute Assessment Diverticulitis; seems responding well to treatment. Plan of Care Note Consider po antibiotics for balance of 10 day course and home. Hemodynamically unstable?: No Is patient in severe pain?: No Is NPO status required?: No TERI MAURO MD Sep 30, 2019 13:00
[2019-09-30 15:00] VITALS: BP 127/83
[2019-09-30 19:00] VITALS: BP 136/61
--- NOTE | 2019-09-30 20:39 | NUR ---
Pt schedule 2014 NS was not administered as the current bag was still infusing. Rate decreased from 100 ml/hr to the new order of 50 ml/hr.
[2019-09-30] MEDS: NORTRIPTYLINE 25 MG CAPSULE PO SCH (21:18)
[2019-09-30] MEDS: ENOXAPARIN 40 MG/0.4 ML SYRINGE. SQ SCH (21:18)
[2019-09-30] MEDS: PANTOPRAZOLE 40 MG TABLET.DR. PO SCH (21:18)
[2019-09-30] MEDS: LATANOPROST 0.005% OPHTH SOLUTION 2.5ML BOTTLE. OU SCH (21:19)
[2019-09-30 22:34] VITALS: BP 125/65
[2019-10-01 03:28] VITALS: BP 121/70
[2019-10-01 05:24] LABS: BASO % 1 % (0-3); EOS # 0.1 x10^3/uL (0.0-0.7); EOS % 3 % (0-3); HEMATOCRIT 33.8 % (36.0-47.0); HEMOGLOBIN 11.3 g/dL (12.0-15.5); LYMPH # 1.7 x10^3/uL (1.0-4.8); LYMPH % 34 % (24-48); MEAN CORPUSCULAR HEMOGLOBIN 28 pg (25-35); MEAN CORPUSCULAR HGB CONC 33 g/dL (31-37); MEAN CORPUSCULAR VOLUME 83 fL (79-100); MONO # 0.3 x10^3/uL (0.0-1.1); MONO % 7 % (0-9); NEUT # 2.8 x10^3/uL (1.8-7.7); NEUT % 57 % (31-73); PLATELET COUNT 351 x10^3/uL (140-400); RED BLOOD COUNT 4.09 x10^6/uL (3.50-5.40)
[2019-10-01 06:00] LABS: ALBUMIN 2.9 g/dL (3.4-5.0); ALBUMIN/GLOBULIN RATIO 0.8 (1.0-1.7); CALCIUM 8.3 mg/dL (8.5-10.1); CREATININE 0.7 mg/dL (0.6-1.0); GFR 92.7; POTASSIUM 4.3 mmol/L (3.5-5.1); TOTAL BILIRUBIN 0.2 mg/dL (0.2-1.0); TOTAL PROTEIN 6.5 g/dL (6.4-8.2)
[2019-10-01 07:59] VITALS: BP 135/88
[2019-10-01] MEDS: FERROUS SULFATE 325 MG TABLET. PO SCH ×2 (08:00→08:09)
[2019-10-01] MEDS: CIPROFLOXACIN 400MG PREMIX 200 ML IV SCH (08:08)
[2019-10-01] MEDS: IV NORMAL SALINE 1000ML BAG 1,000 ML IV SCH (08:08)
[2019-10-01] MEDS: LIPASE/PROTEAS/AMYLAS 10/32/42 CAPSULE.DR. PO SCH ×2 (08:08→11:57)
[2019-10-01] MEDS: ASPIRIN ENTERIC COATED 81 MG TABLET.DR. PO SCH (08:08)
[2019-10-01] MEDS: CYANOCOBALAMIN (VITAMIN B-12) 1,000 MCG TABLET. PO SCH (08:09)
[2019-10-01] MEDS: PREGABALIN 75 MG CAPSULE PO SCH (08:09)
[2019-10-01] MEDS: LACTOBACILLUS RHAMNOSUS GG 1 CAPSULE. PO SCH (08:09)
[2019-10-01 11:00] VITALS: BP 118/72
--- NOTE | 2019-10-01 12:20 | PDOC ---
PROGRESS NOTES Chief Complaint Chief Complaint discharge dx Acute sigmoid diverticulitis Degenerative disc disease at the L5-S1 disc level. Morbid obesity Chronic diastolic CHF Chronic pancreatitis of unclear etiology plan admit po antibiotics GI CONSULT ok with d/c 09/30 home meds dvt prophylaxis iv fluid support If IMPROVING , home on po antibiotics. 09/30 09/29 llq pain slow to resolve 09/30 d/c plannng 28 min History of Present Illness History of Present Illness Ms Hirsch is a 38yo F w/ PMHx obesity, HTN, chronic pancreatitis admitted with abdominal pain found with sigmoid diverticulitis, treating with antibiotics. No CP or SOB. Had 200cc urinary retention, placed buckner catheter with a lot of relief. //diet advanced. Seen by GI. If trend continues, home on po antibiotics. Vitals Vitals Vital Signs Date Time Temp Pulse Resp B/P (MAP) Pulse Ox O2 Delivery O2 Flow Rate FiO2 10/01/19 08:00 Room Air 10/01/19 07:59 98.0 79 20 135/88 (104) 98 98.0 Physical Exam General: Alert, Oriented X3, Cooperative, No acute distress Heart: Regular rate, Normal S1, Normal S2 Lungs: Clear Abdomen: Normal bowel sounds, Soft Extremities: No clubbing, No cyanosis, No edema Skin: No significant lesion Labs LABS Laboratory Tests Test 10/01/19 04:05 10/01/19 04:55 Sodium Level 139 mmol/L (136-145) Potassium Level 4.3 mmol/L (3.5-5.1) Chloride Level 103 mmol/L (98-107) Carbon Dioxide Level 27 mmol/L (21-32) Anion Gap 9 (6-14) Blood Urea Nitrogen 11 mg/dL (7-20) Creatinine 0.7 mg/dL (0.6-1.0) Estimated GFR (Cockcroft-Gault) 92.7 BUN/Creatinine Ratio 16 (6-20) Glucose Level 128 mg/dL (70-99) Calcium Level 8.3 mg/dL (8.5-10.1) Total Bilirubin 0.2 mg/dL (0.2-1.0) Aspartate Amino Transf (AST/SGOT) 13 U/L (15-37) Alanine Aminotransferase (ALT/SGPT) 18 U/L (14-59) Alkaline Phosphatase 44 U/L (46-116) Total Protein 6.5 g/dL (6.4-8.2) Albumin 2.9 g/dL (3.4-5.0) Albumin/Globulin Ratio 0.8 (1.0-1.7) White Blood Count 5.0 x10^3/uL (4.0-11.0) Red Blood Count 4.09 x10^6/uL (3.50-5.40) Hemoglobin 11.3 g/dL (12.0-15.5) Hematocrit 33.8 % (36.0-47.0) Mean Corpuscular Volume 83 fL (79-100) Mean Corpuscular Hemoglobin 28 pg (25-35) Mean Corpuscular Hemoglobin Concent 33 g/dL (31-37) Red Cell Distribution Width 15.0 % (11.5-14.5) Platelet Count 351 x10^3/uL (140-400) Neutrophils (%) (Auto) 57 % (31-73) Lymphocytes (%) (Auto) 34 % (24-48) Monocytes (%) (Auto) 7 % (0-9) Eosinophils (%) (Auto) 3 % (0-3) Basophils (%) (Auto) 1 % (0-3) Neutrophils # (Auto) 2.8 x10^3/uL (1.8-7.7) Lymphocytes # (Auto) 1.7 x10^3/uL (1.0-4.8) Monocytes # (Auto) 0.3 x10^3/uL (0.0-1.1) Eosinophils # (Auto) 0.1 x10^3/uL (0.0-0.7) Basophils # (Auto) 0.0 x10^3/uL (0.0-0.2) Assessment and Plan Assessmemt and Plan Problems Medical Problems: (1) Acute diverticulitis Status: Acute Comment Review of Relevant I have reviewed the following items leslie (where applicable) has been applied. Labs Laboratory Tests Test 10/01/19 04:05 10/01/19 04:55 Sodium Level 139 mmol/L (136-145) Potassium Level 4.3 mmol/L (3.5-5.1) Chloride Level 103 mmol/L (98-107) Carbon Dioxide Level 27 mmol/L (21-32) Anion Gap 9 (6-14) Blood Urea Nitrogen 11 mg/dL (7-20) Creatinine 0.7 mg/dL (0.6-1.0) Estimated GFR (Cockcroft-Gault) 92.7 BUN/Creatinine Ratio 16 (6-20) Glucose Level 128 mg/dL (70-99) Calcium Level 8.3 mg/dL (8.5-10.1) Total Bilirubin 0.2 mg/dL (0.2-1.0) Aspartate Amino Transf (AST/SGOT) 13 U/L (15-37) Alanine Aminotransferase (ALT/SGPT) 18 U/L (14-59) Alkaline Phosphatase 44 U/L (46-116) Total Protein 6.5 g/dL (6.4-8.2) Albumin 2.9 g/dL (3.4-5.0) Albumin/Globulin Ratio 0.8 (1.0-1.7) White Blood Count 5.0 x10^3/uL (4.0-11.0) Red Blood Count 4.09 x10^6/uL (3.50-5.40) Hemoglobin 11.3 g/dL (12.0-15.5) Hematocrit 33.8 % (36.0-47.0) Mean Corpuscular Volume 83 fL (79-100) Mean Corpuscular Hemoglobin 28 pg (25-35) Mean Corpuscular Hemoglobin Concent 33 g/dL (31-37) Red Cell Distribution Width 15.0 % (11.5-14.5) Platelet Count 351 x10^3/uL (140-400) Neutrophils (%) (Auto) 57 % (31-73) Lymphocytes (%) (Auto) 34 % (24-48) Monocytes (%) (Auto) 7 % (0-9) Eosinophils (%) (Auto) 3 % (0-3) Basophils (%) (Auto) 1 % (0-3) Neutrophils # (Auto) 2.8 x10^3/uL (1.8-7.7) Lymphocytes # (Auto) 1.7 x10^3/uL (1.0-4.8) Monocytes # (Auto) 0.3 x10^3/uL (0.0-1.1) Eosinophils # (Auto) 0.1 x10^3/uL (0.0-0.7) Basophils # (Auto) 0.0 x10^3/uL (0.0-0.2) Laboratory Tests Test 10/01/19 04:05 10/01/19 04:55 Sodium Level 139 mmol/L (136-145) Potassium Level 4.3 mmol/L (3.5-5.1) Chloride Level 103 mmol/L (98-107) Carbon Dioxide Level 27 mmol/L (21-32) Anion Gap 9 (6-14) Blood Urea Nitrogen 11 mg/dL (7-20) Creatinine 0.7 mg/dL (0.6-1.0) Estimated GFR (Cockcroft-Gault) 92.7 BUN/Creatinine Ratio 16 (6-20) Glucose Level 128 mg/dL (70-99) Calcium Level 8.3 mg/dL (8.5-10.1) Total Bilirubin 0.2 mg/dL (0.2-1.0) Aspartate Amino Transf (AST/SGOT) 13 U/L (15-37) Alanine Aminotransferase (ALT/SGPT) 18 U/L (14-59) Alkaline Phosphatase 44 U/L (46-116) Total Protein 6.5 g/dL (6.4-8.2) Albumin 2.9 g/dL (3.4-5.0) Albumin/Globulin Ratio 0.8 (1.0-1.7) White Blood Count 5.0 x10^3/uL (4.0-11.0) Red Blood Count 4.09 x10^6/uL (3.50-5.40) Hemoglobin 11.3 g/dL (12.0-15.5) Hematocrit 33.8 % (36.0-47.0) Mean Corpuscular Volume 83 fL (79-100) Mean Corpuscular Hemoglobin 28 pg (25-35) Mean Corpuscular Hemoglobin Concent 33 g/dL (31-37) Red Cell Distribution Width 15.0 % (11.5-14.5) Platelet Count 351 x10^3/uL (140-400) Neutrophils (%) (Auto) 57 % (31-73) Lymphocytes (%) (Auto) 34 % (24-48) Monocytes (%) (Auto) 7 % (0-9) Eosinophils (%) (Auto) 3 % (0-3) Basophils (%) (Auto) 1 % (0-3) Neutrophils # (Auto) 2.8 x10^3/uL (1.8-7.7) Lymphocytes # (Auto) 1.7 x10^3/uL (1.0-4.8) Monocytes # (Auto) 0.3 x10^3/uL (0.0-1.1) Eosinophils # (Auto) 0.1 x10^3/uL (0.0-0.7) Basophils # (Auto) 0.0 x10^3/uL (0.0-0.2) Medications Current Medications Phenazopyridine HCl (Pyridium) 200 mg 1X ONCE PO Last administered on 09/28/19at 04:22; Start 09/28/19 at 04:15; Stop 09/28/19 at 04:16; Status DC Ketorolac Tromethamine (Toradol 30mg Vial) 30 mg 1X ONCE IVP Last administered on 09/28/19at 04:21; Start 09/28/19 at 04:15; Stop 09/28/19 at 04:16; Status DC Morphine Sulfate (Morphine Sulfate) 4 mg 1X ONCE IV Last administered on 09/28/19at 04:22; Start 09/28/19 at 04:15; Stop 09/28/19 at 04:16; Status DC Ondansetron HCl (Zofran) 4 mg 1X ONCE IVP Last administered on 09/28/19at 04:22; Start 09/28/19 at 04:15; Stop 09/28/19 at 04:16; Status DC Iohexol (Omnipaque 300 Mg/ml) 75 ml 1X ONCE IV Last administered on 09/28/19at 05:11; Start 09/28/19 at 04:45; Stop 09/28/19 at 04:46; Status DC Info (CONTRAST GIVEN -- Rx MONITORING) 1 each PRN DAILY PRN MC SEE COMMENTS; Start 09/28/19 at 04:45; Stop 09/30/19 at 04:44; Status DC Metronidazole 100 ml @ 100 mls/hr 1X ONCE IV Last administered on 09/28/19at 06:29; Start 09/28/19 at 06:00; Stop 09/28/19 at 06:59; Status DC Levofloxacin/ Dextrose 150 ml @ 100 mls/hr 1X ONCE IV Last administered on 09/28/19at 09:12; Start 09/28/19 at 06:00; Stop 09/28/19 at 07:29; Status DC Ondansetron HCl (Zofran) 4 mg PRN Q8HRS PRN IV NAUSEA/VOMITING; Start 09/28/19 at 06:00; Stop 09/28/19 at 15:23; Status DC Morphine Sulfate (Morphine Sulfate) 2 mg PRN Q2HR PRN IV PAIN Last administered on 09/28/19at 16:19; Start 09/28/19 at 06:00; Stop 09/29/19 at 05:59; Status DC Sodium Chloride 1,000 ml @ 125 mls/hr Q8H IV Last administered on 09/28/19at 06:29; Start 09/28/19 at 06:00; Stop 09/29/19 at 05:59; Status DC Metronidazole 100 ml @ 100 mls/hr Q8HRS IV Last administered on 10/01/19at 05:19; Start 09/28/19 at 14:00 Ciprofloxacin/ Dextrose 200 ml @ 200 mls/hr Q12HR IV Last administered on 10/01/19at 08:08; Start 09/28/19 at 21:00 Aspirin (Ecotrin) 81 mg DAILY PO Last administered on 10/01/19at 08:08; Start 09/28/19 at 14:00 Cyclobenzaprine HCl (Flexeril) 10 mg PRN DAILY PRN PO MUSCLE SPASMS; Start 09/28/19 at 13:00 Ferrous Sulfate (Feosol) 325 mg DAILY08 PO Last administered on 09/30/19at 09:35; Start 09/28/19 at 14:00 Latanoprost (Xalatan) 1 drop HS OU Last administered on 09/30/19at 21:19; Start 09/28/19 at 21:00 Morphine Sulfate (Morphine Ir) 15 mg PRN Q4HRS PRN PO SEVERE PAIN 7-10; Start 09/28/19 at 13:00 Nortriptyline HCl (Pamelor) 50 mg QHS PO Last administered on 09/30/19at 21:18; Start 09/28/19 at 21:00 Ondansetron HCl (Zofran Odt) 4 mg PRN Q4HRS PRN PO NAUSEA; Start 09/28/19 at 13:00 Pantoprazole Sodium (Protonix) 40 mg HS PO Last administered on 09/30/19 21:18; Start 09/28/19 at 21:00 Pregabalin (Lyrica) 75 mg BID PO Last administered on 10/01/19 08:09; Start 09/28/19 at 14:00 Tramadol HCl (Ultram) 50 mg PRN Q6HRS PRN PO MODERATE PAIN Last administered on 10/01/19 05:19; Start 09/28/19 at 13:00 Cyanocobalamin (Vitamin B-12) 1,000 mcg DAILY PO Last administered on 10/01/19 08:09; Start 09/28/19 at 14:00 Amylase/Lipase/ Protease (Zenpep 10,000) 2 cap TIDBFRMEAL PO Last administered on 10/01/19 11:57; Start 09/28/19 at 17:00 Sodium Chloride (Normal Saline Flush) 3 ml QSHIFT PRN IV AFTER MEDS AND BLOOD DRAWS; Start 09/28/19 at 13:00 Sodium Chloride 1,000 ml @ 100 mls/hr Q10H IV Last administered on 09/30/19 12:52; Start 09/28/19 at 12:58; Stop 09/30/19 at 20:09; Status DC Ondansetron HCl (Zofran) 4 mg PRN Q4HRS PRN IV NAUSEA/VOMITING Last administered on 09/28/19 21:33; Start 09/28/19 at 13:00 Zolpidem Tartrate (Ambien) 5 mg PRN QHS PRN PO INSOMNIA Last administered on 09/30/19 21:19; Start 09/28/19 at 13:00 Acetaminophen (Tylenol) 650 mg PRN Q4HRS PRN PO TEMP OVER 100.4F OR MILD PAIN Last administered on 09/28/19at 16:05; Start 09/28/19 at 13:00 Acetaminophen (Tylenol Supp) 650 mg PRN Q4HRS PRN [place] TEMP OVER 100.4F OR MILD PAIN; Start 09/28/19 at 13:00 Al Hydroxide/Mg Hydroxide (Mylanta Plus Xs) 30 ml PRN DAILY PRN PO HEARTBURN / GAS; Start 09/28/19 at 13:00 Clonidine HCl (Catapres) 0.1 mg PRN Q6HRS PRN PO SBP>160 OR DBP>90; Start 09/28/19 at 13:00 Docusate Sodium (Colace) 100 mg PRN BID PRN PO CONSTIPATION Last administered o n 10/01/19at 05:19; Start 09/28/19 at 13:00 Albuterol Sulfate (Ventolin Neb Soln) 2.5 mg PRN Q4HRS PRN NEB SHORTNESS OF BREATH; Start 09/28/19 at 13:00 Guaifenesin (Robitussin) 200 mg PRN Q4HRS PRN PO COUGH; Start 09/28/19 at 13:00 Lorazepam (Ativan) 0.5 mg PRN Q4HRS PRN PO ANXIETY / AGITATION; Start 09/28/19 at 13:00 Enoxaparin Sodium (Lovenox 40mg Syringe) 40 mg Q24H SQ ; Start 09/28/19 at 14:00; Stop 09/28/19 at 15:03; Status DC Enoxaparin Sodium (Lovenox 40mg Syringe) 40 mg Q24H SQ Last administered on 09/30/19at 21:18; Start 09/28/19 at 21:00 Lactobacillus Rhamnosus (Culturelle) 1 cap BID PO Last administered on 10/01/19at 08:09; Start 09/28/19 at 21:00 Potassium Chloride (Klor-Con) 40 meq 1X ONCE PO Last administered on 09/29/19at 08:19; Start 09/29/19 at 08:00; Stop 09/29/19 at 08:01; Status DC Sodium Chloride 1,000 ml @ 50 mls/hr Q20H IV Last administered on 10/01/19at 08:08; Start 09/30/19 at 20:15 Active Scripts Active Ondansetron Odt (Ondansetron) 4 Mg Tab.rapdis 1 Tab PO PRN Q6-8HRS Ultram (Tramadol Hcl) 50 Mg Tablet 50 Mg PO Q6H PRN Reported Latanoprost 2.5 Ml Drops 1 Drop OP HS Viokace 20,880-78,300 Units Tb (Lipase/Protease/Amylase) 1 Each Tablet 2 Tab PO BIDBFRMEAL PRN 30 Days Viokace 20,880-78,300 Units Tb (Lipase/Protease/Amylase) 1 Each Tablet 3 Tab PO TIDBFRMEAL 30 Days Valacyclovir (Valacyclovir Hcl) 1,000 Mg Tablet 1 Tab PO PRN BID B-12 (Cyanocobalamin (Vitamin B-12)) 1,000 Mcg Tablet.er 1 Tab PO DAILY 30 Days Ferrous Sulfate 325 Mg Tablet 1 Tab PO DAILY Pantoprazole Sodium (Pantoprazole Sodium) 40 Mg Tablet.dr 40 Mg PO HS Cyclobenzaprine Hcl 10 Mg Tablet 1 Tab PO PRN DAILY PRN Metformin Hcl Er (Metformin Hcl) 500 Mg Tab.er.24h 500 Mg PO PRN DAILY Nortriptyline Hcl 25 Mg Capsule 2 Cap PO QHS Morphine Sulfate 15 Mg Tablet 1 Tab PO PRN Q4HRS PRN Aspir-Low (Aspirin) 81 Mg Tablet.dr 1 Tab PO DAILY Lyrica (Pregabalin) 75 Mg Capsule 1 Cap PO BID Vitals/I & O Vital Sign - Last 24 Hours 09/30/19 09/30/19 09/30/19 09/30/19 15:00 19:00 20:00 22:34 Temp 98.1 97.9 97.7 98.1 97.9 97.7 Pulse 84 76 70 Resp 20 18 16 B/P (MAP) 127/83 (98) 136/61 (86) 125/65 (85) Pulse Ox 98 98 99 O2 Delivery Room Air Room Air Room Air Room Air 10/01/19 10/01/19 10/01/19 10/01/19 03:28 05:19 06:19 07:59 Temp 97.9 98.0 97.9 98.0 Pulse 64 79 Resp 18 20 B/P (MAP) 121/70 (87) 135/88 (104) Pulse Ox 99 99 99 98 O2 Delivery Room Air Room Air Room Air Room Air 10/01/19 08:00 O2 Delivery Room Air Intake and Output 09/30/19 09/30/19 10/01/19 15:00 23:00 07:00 Intake Total 600 ml 760 ml 220 ml Output Total 2000 ml Balance 600 ml -1240 ml 220 ml Hemodynamically unstable?: No Is patient in severe pain?: No Is NPO status required?: No DORINA MATTHEWS MD Oct 01, 2019 12:20
--- NOTE | 2019-10-01 13:24 | PDOC3 ---
Discharge Summary Date of Admission: Sep 28, 2019 Date of Discharge: Oct 01, 2019 Follow-Up: 3-5 days Admitting Diagnosis comment: discharge dx Acute sigmoid diverticulitis Degenerative disc disease at the L5-S1 disc level. Morbid obesity Chronic diastolic CHF Chronic pancreatitis of unclear etiology plan admit po antibiotics GI CONSULT ok with d/c 09/30 home meds dvt prophylaxis iv fluid support If IMPROVING , home on po antibiotics. 09/30 09/29 llq pain slow to resolve 09/30 d/c plannng 28 min History of Present Illness History of Present Illness Ms Hirsch is a 38yo F w/ PMHx obesity, HTN, chronic pancreatitis admitted with abdominal pain found with sigmoid diverticulitis, treating with antibiotics. No CP or SOB. Had 200cc urinary retention, placed buckner catheter with a lot of relief. //diet advanced. Seen by GI. If trend continues, home on po antibiotics. Vitals Vitals Vital Signs Date Time Temp Pulse Resp B/P (MAP) Pulse Ox O2 Delivery O2 Flow Rate FiO2 10/01/19 08:00 Room Air 10/01/19 07:59 98.0 79 20 135/88 (104) 98 98.0 Physical Exam General: Alert, Oriented X3, Cooperative, No acute distress Heart: Regular rate, Normal S1, Normal S2 Lungs: Clear Abdomen: Normal bowel sounds, Soft Extremities: No clubbing, No cyanosis, No edema Skin: No significant lesion FINAL DIAGNOSIS Problems Medical Problems: (1) Acute diverticulitis Status: Acute Brief Hospital Course Ms. Hirsch is a 38 old [sex] who presented with [ acute sigmoid diverticulitis] CONDITION AT DISCHARGE: Improved Discharge Medications Current Medications Phenazopyridine HCl (Pyridium) 200 mg 1X ONCE PO Last administered on 09/28/19at 04:22; Start 09/28/19 at 04:15; Stop 09/28/19 at 04:16; Status DC Ketorolac Tromethamine (Toradol 30mg Vial) 30 mg 1X ONCE IVP Last administered on 09/28/19at 04:21; Start 09/28/19 at 04:15; Stop 09/28/19 at 04:16; Status DC Morphine Sulfate (Morphine Sulfate) 4 mg 1X ONCE IV Last administered on 09/28/19at 04:22; Start 09/28/19 at 04:15; Stop 09/28/19 at 04:16; Status DC Ondansetron HCl (Zofran) 4 mg 1X ONCE IVP Last administered on 09/28/19at 04:22; Start 09/28/19 at 04:15; Stop 09/28/19 at 04:16; Status DC Iohexol (Omnipaque 300 Mg/ml) 75 ml 1X ONCE IV Last administered on 09/28/19at 05:11; Start 09/28/19 at 04:45; Stop 09/28/19 at 04:46; Status DC Info (CONTRAST GIVEN -- Rx MONITORING) 1 each PRN DAILY PRN MC SEE COMMENTS; Start 09/28/19 at 04:45; Stop 09/30/19 at 04:44; Status DC Metronidazole 100 ml @ 100 mls/hr 1X ONCE IV Last administered on 09/28/19at 06:29; Start 09/28/19 at 06:00; Stop 09/28/19 at 06:59; Status DC Levofloxacin/ Dextrose 150 ml @ 100 mls/hr 1X ONCE IV Last administered on 09/28/19at 09:12; Start 09/28/19 at 06:00; Stop 09/28/19 at 07:29; Status DC Ondansetron HCl (Zofran) 4 mg PRN Q8HRS PRN IV NAUSEA/VOMITING; Start 09/28/19 at 06:00; Stop 09/28/19 at 15:23; Status DC Morphine Sulfate (Morphine Sulfate) 2 mg PRN Q2HR PRN IV PAIN Last administered on 09/28/19at 16:19; Start 09/28/19 at 06:00; Stop 09/29/19 at 05:59; Status DC Sodium Chloride 1,000 ml @ 125 mls/hr Q8H IV Last administered on 09/28/19at 06:29; Start 09/28/19 at 06:00; Stop 09/29/19 at 05:59; Status DC Metronidazole 100 ml @ 100 mls/hr Q8HRS IV Last administered on 10/01/19at 13:00; Start 09/28/19 at 14:00 Ciprofloxacin/ Dextrose 200 ml @ 200 mls/hr Q12HR IV Last administered on 10/01/19at 08:08; Start 09/28/19 at 21:00 Aspirin (Ecotrin) 81 mg DAILY PO Last administered on 10/01/19 08:08; Start 09/28/19 at 14:00 Cyclobenzaprine HCl (Flexeril) 10 mg PRN DAILY PRN PO MUSCLE SPASMS; Start 09/28/19 at 13:00 Ferrous Sulfate (Feosol) 325 mg DAILY08 PO Last administered on 09/30/19 09:35; Start 09/28/19 at 14:00 Latanoprost (Xalatan) 1 drop HS OU Last administered on 09/30/19 21:19; Start 09/28/19 at 21:00 Morphine Sulfate (Morphine Ir) 15 mg PRN Q4HRS PRN PO SEVERE PAIN 7-10; Start 09/28/19 at 13:00 Nortriptyline HCl (Pamelor) 50 mg QHS PO Last administered on 09/30/19 21:18; Start 09/28/19 at 21:00 Ondansetron HCl (Zofran Odt) 4 mg PRN Q4HRS PRN PO NAUSEA; Start 09/28/19 at 13:00 Pantoprazole Sodium (Protonix) 40 mg HS PO Last administered on 09/30/19 21:18; Start 09/28/19 at 21:00 Pregabalin (Lyrica) 75 mg BID PO Last administered on 10/01/19 08:09; Start 09/28/19 at 14:00 Tramadol HCl (Ultram) 50 mg PRN Q6HRS PRN PO MODERATE PAIN Last administered on 10/01/19 05:19; Start 09/28/19 at 13:00 Cyanocobalamin (Vitamin B-12) 1,000 mcg DAILY PO Last administered on 10/01/19 08:09; Start 09/28/19 at 14:00 Amylase/Lipase/ Protease (Zenpep 10,000) 2 cap TIDBFRMEAL PO Last administered on 10/01/19 11:57; Start 09/28/19 at 17:00 Sodium Chloride (Normal Saline Flush) 3 ml QSHIFT PRN IV AFTER MEDS AND BLOOD DRAWS; Start 09/28/19 at 13:00 Sodium Chloride 1,000 ml @ 100 mls/hr Q10H IV Last administered on 09/30/19at 12:52; Start 09/28/19 at 12:58; Stop 09/30/19 at 20:09; Status DC Ondansetron HCl (Zofran) 4 mg PRN Q4HRS PRN IV NAUSEA/VOMITING Last administered on 09/28/19at 21:33; Start 09/28/19 at 13:00 Zolpidem Tartrate (Ambien) 5 mg PRN QHS PRN PO INSOMNIA Last administered on 09/30/19at 21:19; Start 09/28/19 at 13:00 Acetaminophen (Tylenol) 650 mg PRN Q4HRS PRN PO TEMP OVER 100.4F OR MILD PAIN Last administered on 09/28/19at 16:05; Start 09/28/19 at 13:00 Acetaminophen (Tylenol Supp) 650 mg PRN Q4HRS PRN [place] TEMP OVER 100.4F OR MILD PAIN; Start 09/28/19 at 13:00 Al Hydroxide/Mg Hydroxide (Mylanta Plus Xs) 30 ml PRN DAILY PRN PO HEARTBURN / GAS; Start 09/28/19 at 13:00 Clonidine HCl (Catapres) 0.1 mg PRN Q6HRS PRN PO SBP>160 OR DBP>90; Start 09/28/19 at 13:00 Docusate Sodium (Colace) 100 mg PRN BID PRN PO CONSTIPATION Last administered on 10/01/19at 05:19; Start 09/28/19 at 13:00 Albuterol Sulfate (Ventolin Neb Soln) 2.5 mg PRN Q4HRS PRN NEB SHORTNESS OF BREATH; Start 09/28/19 at 13:00 Guaifenesin (Robitussin) 200 mg PRN Q4HRS PRN PO COUGH; Start 09/28/19 at 13:00 Lorazepam (Ativan) 0.5 mg PRN Q4HRS PRN PO ANXIETY / AGITATION; Start 09/28/19 at 13:00 Enoxaparin Sodium (Lovenox 40mg Syringe) 40 mg Q24H SQ ; Start 09/28/19 at 14:00; Stop 09/28/19 at 15:03; Status DC Enoxaparin Sodium (Lovenox 40mg Syringe) 40 mg Q24H SQ Last administered on 09/30/19at 21:18; Start 09/28/19 at 21:00 Lactobacillus Rhamnosus (Culturelle) 1 cap BID PO Last administered on 10/01/19at 08:09; Start 09/28/19 at 21:00 Potassium Chloride (Klor-Con) 40 meq 1X ONCE PO Last administered on 09/29/19at 08:19; Start 09/29/19 at 08:00; Stop 09/29/19 at 08:01; Status DC Sodium Chloride 1,000 ml @ 50 mls/hr Q20H IV Last administered on 10/01/19at 08:08; Start 09/30/19 at 20:15 Active Scripts Active Ondansetron Odt (Ondansetron) 4 Mg Tab.rapdis 1 Tab PO PRN Q6-8HRS Ultram (Tramadol Hcl) 50 Mg Tablet 50 Mg PO Q6H PRN Reported Latanoprost 2.5 Ml Drops 1 Drop OP HS Viokace 20,880-78,300 Units Tb (Lipase/Protease/Amylase) 1 Each Tablet 2 Tab PO BIDBFRMEAL PRN 30 Days Viokace 20,880-78,300 Units Tb (Lipase/Protease/Amylase) 1 Each Tablet 3 Tab PO TIDBFRMEAL 30 Days Valacyclovir (Valacyclovir Hcl) 1,000 Mg Tablet 1 Tab PO PRN BID B-12 (Cyanocobalamin (Vitamin B-12)) 1,000 Mcg Tablet.er 1 Tab PO DAILY 30 Days Ferrous Sulfate 325 Mg Tablet 1 Tab PO DAILY Pantoprazole Sodium (Pantoprazole Sodium) 40 Mg Tablet.dr 40 Mg PO HS Cyclobenzaprine Hcl 10 Mg Tablet 1 Tab PO PRN DAILY PRN Metformin Hcl Er (Metformin Hcl) 500 Mg Tab.er.24h 500 Mg PO PRN DAILY Nortriptyline Hcl 25 Mg Capsule 2 Cap PO QHS Morphine Sulfate 15 Mg Tablet 1 Tab PO PRN Q4HRS PRN Aspir-Low (Aspirin) 81 Mg Tablet.dr 1 Tab PO DAILY Lyrica (Pregabalin) 75 Mg Capsule 1 Cap PO BID Vital Signs Vital Signs Date Time Temp Pulse Resp B/P (MAP) Pulse Ox O2 Delivery O2 Flow Rate FiO2 10/01/19 08:00 Room Air 10/01/19 07:59 98.0 79 20 135/88 (104) 98 98.0 Labs Laboratory Tests Test 10/01/19 04:05 10/01/19 04:55 Sodium Level 139 mmol/L (136-145) Potassium Level 4.3 mmol/L (3.5-5.1) Chloride Level 103 mmol/L (98-107) Carbon Dioxide Level 27 mmol/L (21-32) Anion Gap 9 (6-14) Blood Urea Nitrogen 11 mg/dL (7-20) Creatinine 0.7 mg/dL (0.6-1.0) Estimated GFR (Cockcroft-Gault) 92.7 BUN/Creatinine Ratio 16 (6-20) Glucose Level 128 mg/dL (70-99) Calcium Level 8.3 mg/dL (8.5-10.1) Total Bilirubin 0.2 mg/dL (0.2-1.0) Aspartate Amino Transf (AST/SGOT) 13 U/L (15-37) Alanine Aminotransferase (ALT/SGPT) 18 U/L (14-59) Alkaline Phosphatase 44 U/L (46-116) Total Protein 6.5 g/dL (6.4-8.2) Albumin 2.9 g/dL (3.4-5.0) Albumin/Globulin Ratio 0.8 (1.0-1.7) White Blood Count 5.0 x10^3/uL (4.0-11.0) Red Blood Count 4.09 x10^6/uL (3.50-5.40) Hemoglobin 11.3 g/dL (12.0-15.5) Hematocrit 33.8 % (36.0-47.0) Mean Corpuscular Volume 83 fL (79-100) Mean Corpuscular Hemoglobin 28 pg (25-35) Mean Corpuscular Hemoglobin Concent 33 g/dL (31-37) Red Cell Distribution Width 15.0 % (11.5-14.5) Platelet Count 351 x10^3/uL (140-400) Neutrophils (%) (Auto) 57 % (31-73) Lymphocytes (%) (Auto) 34 % (24-48) Monocytes (%) (Auto) 7 % (0-9) Eosinophils (%) (Auto) 3 % (0-3) Basophils (%) (Auto) 1 % (0-3) Neutrophils # (Auto) 2.8 x10^3/uL (1.8-7.7) Lymphocytes # (Auto) 1.7 x10^3/uL (1.0-4.8) Monocytes # (Auto) 0.3 x10^3/uL (0.0-1.1) Eosinophils # (Auto) 0.1 x10^3/uL (0.0-0.7) Basophils # (Auto) 0.0 x10^3/uL (0.0-0.2) Laboratory Tests Test 10/01/19 04:05 10/01/19 04:55 Sodium Level 139 mmol/L (136-145) Potassium Level 4.3 mmol/L (3.5-5.1) Chloride Level 103 mmol/L (98-107) Carbon Dioxide Level 27 mmol/L (21-32) Anion Gap 9 (6-14) Blood Urea Nitrogen 11 mg/dL (7-20) Creatinine 0.7 mg/dL (0.6-1.0) Estimated GFR (Cockcroft-Gault) 92.7 BUN/Creatinine Ratio 16 (6-20) Glucose Level 128 mg/dL (70-99) Calcium Level 8.3 mg/dL (8.5-10.1) Total Bilirubin 0.2 mg/dL (0.2-1.0) Aspartate Amino Transf (AST/SGOT) 13 U/L (15-37) Alanine Aminotransferase (ALT/SGPT) 18 U/L (14-59) Alkaline Phosphatase 44 U/L (46-116) Total Protein 6.5 g/dL (6.4-8.2) Albumin 2.9 g/dL (3.4-5.0) Albumin/Globulin Ratio 0.8 (1.0-1.7) White Blood Count 5.0 x10^3/uL (4.0-11.0) Red Blood Count 4.09 x10^6/uL (3.50-5.40) Hemoglobin 11.3 g/dL (12.0-15.5) Hematocrit 33.8 % (36.0-47.0) Mean Corpuscular Volume 83 fL (79-100) Mean Corpuscular Hemoglobin 28 pg (25-35) Mean Corpuscular Hemoglobin Concent 33 g/dL (31-37) Red Cell Distribution Width 15.0 % (11.5-14.5) Platelet Count 351 x10^3/uL (140-400) Neutrophils (%) (Auto) 57 % (31-73) Lymphocytes (%) (Auto) 34 % (24-48) Monocytes (%) (Auto) 7 % (0-9) Eosinophils (%) (Auto) 3 % (0-3) Basophils (%) (Auto) 1 % (0-3) Neutrophils # (Auto) 2.8 x10^3/uL (1.8-7.7) Lymphocytes # (Auto) 1.7 x10^3/uL (1.0-4.8) Monocytes # (Auto) 0.3 x10^3/uL (0.0-1.1) Eosinophils # (Auto) 0.1 x10^3/uL (0.0-0.7) Basophils # (Auto) 0.0 x10^3/uL (0.0-0.2) Allergies Allergies Coded Allergies Type Severity Reaction Last Updated Verified hydrocodone Allergy Intermediate itch 11/21/16 Yes oxycodone Allergy Intermediate itch 11/21/16 Yes Disposition/Orders: D/C to Home Hemodynamically unstable?: No Is patient in severe pain?: No Is NPO status required?: No DORINA MATTHEWS MD Oct 01, 2019 13:24
[2019-10-01] MEDS ORDERED: CIPR500T94 PO (13:29)
[2019-10-01] MEDS ORDERED: LACT1CAP19 PO (13:29)
[2019-10-01] MEDS ORDERED: METR500T PO (13:29)
[2019-10-01] MEDS ORDERED: DOCU-153 PO (13:29)
--- NOTE | 2019-10-01 13:30 | DISCH ---
DISCHARGE INSTRUCTIONS Condition on Discharge Condition on Discharge: Stable Activity After Discharge Activity Instructions for Disc: Activity as tolerated, Other, see below Driving Instructions after Dis: Do not drive today Diet after Discharge Diet after Discharge: Regular Liquid Texture: Thin Liquid Wound Incision Care Wound/Incision Care: Other, see below Contacting the [facility] after DC Call your doctor for: If your condition worsens Warfarin Follow-Up Warfarin Follow UP: see pcp next week, gi in 3 weeks DORINA MATTHEWS MD Oct 01, 2019 13:30
--- NOTE | 2019-10-01 13:32 | NUR ---
IV flagyl given. Non administered Flagyl tablet at 1400.
[2019-10-01] MEDS ORDERED: metroNIDAZOLE 500 MG TABLET PO SCH (14:00)
--- NOTE | 2019-10-01 16:23 | NUR ---
Discharge Note: FAN WILLIAMSON [address] Discharge instructions and discharge home medications reviewed with Patient and a copy given. All questions have been answered and understanding verbalized. The following instructions and handouts were given: Patient given education regarding new medication and follow ups. Discontinued lines and drains: IV removed per protocol. Patient discharged home, picked up by daughter.
[2019-10-01] MEDS ORDERED: CIPROFLOXACIN HCL 250 MG TABLET. PO SCH (21:00)
== END 2019-10-01 16:20 | disposition home or self-care (01) | DRG 392 ==
LOC: ER 02:31 → 5 SOUTH 05:40
PROVIDERS: ADMIT Family Medicine; ATTEND Family Medicine
DX: K57.32 Diverticulitis of large intestine without perforation or abscess without bleeding (principal); I50.32 Chronic diastolic (congestive) heart failure; K86.1 Other chronic pancreatitis; E66.01 Morbid (severe) obesity due to excess calories; G89.29 Other chronic pain; I11.0 Hypertensive heart disease with heart failure; K76.9 Liver disease, unspecified; M51.37 Other intervertebral disc degeneration, lumbosacral region; R73.03 Prediabetes; Z82.49 Family history of ischemic heart disease and other diseases of the circulatory system; Z90.710 Acquired absence of both cervix and uterus; Z68.37 Body mass index [BMI] 37.0-37.9, adult; Z88.8 Allergy status to other drugs, medicaments and biological substances
CPT/HCPCS: 36415; 74177; 80048; 80053; 81001; 81025; 83605; 83690; 85025; 94760; 96365; 96375; J0744; J1650; J1885; J1956; J2270; J2405; J3490; J7030; Q9967; 99285-25; G0378

== ENCOUNTER 2020-03-08 13:14 | Emergency (ER) | payer OTHER ==
[~2020-03-08] VITALS: Ht 170.2 cm; Wt 109.0 kg
[~2020-03-08 13:14] MED LIST changes: +ASPI81TA50 PO; +CIPR500T94 PO; +CYAN100031 PO; +DOCU-153 PO; +FERR325T14 PO; +LACT1CAP19 PO; +LATA2.5D3 OP; +LIPA1TAB4 PO; +METF-658 PO; +METR500T PO; +MORP15TA PO; +NORT25CA PO; +PANT40TA77 PO; +PREG-9 PO; +VALA10008 PO
[2020-03-08 14:20] LABS: BILIRUBIN,URINE NEGATIVE (NEG); CLARITY,URINE CLEAR; COLOR,URINE YELLOW; NITRITE,URINE NEGATIVE (NEG); PH,URINE 5.5 (<5.0-8.0); PROTEIN,URINE NEGATIVE (NEG-TRACE); UROBILINOGEN,URINE 0.2 mg/dL (0.2 mg/dL)
[2020-03-08] MEDS ORDERED: ONDANSETRON PF 4 MG/2 ML VIAL. IVP ONE (14:30)
[2020-03-08] MEDS ORDERED: IV NORMAL SALINE 1000ML BAG 1,000 ML IV ONE (14:30)
[2020-03-08] MEDS ORDERED: HYDROmorphone 2 MG/ML VIAL IVP ONE (14:30)
[2020-03-08 14:32] LABS: BACTERIA,URINE FEW /HPF (0-FEW); HYALINE CASTS, URINE FEW /HPF; RBC,URINE RARE /HPF (0-2); SQUAMOUS EPITHELIAL CELL,UR MOD /LPF; WBC,URINE RARE /HPF (0-4)
[2020-03-08 14:53] LABS: BASO # 0.1 x10^3/uL (0.0-0.2); BASO % 1 % (0-3); EOS # 0.1 x10^3/uL (0.0-0.7); EOS % 1 % (0-3); HEMATOCRIT 38.7 % (36.0-47.0); HEMOGLOBIN 13.1 g/dL (12.0-15.5); LYMPH # 2.1 x10^3/uL (1.0-4.8); LYMPH % 32 % (24-48); MEAN CORPUSCULAR HEMOGLOBIN 28 pg (25-35); MEAN CORPUSCULAR HGB CONC 34 g/dL (31-37); MEAN CORPUSCULAR VOLUME 83 fL (79-100); MONO # 0.3 x10^3/uL (0.0-1.1); MONO % 5 % (0-9); NEUT # 4.1 x10^3/uL (1.8-7.7); NEUT % 61 % (31-73); PLATELET COUNT 423 x10^3/uL (140-400); RED BLOOD COUNT 4.64 x10^6/uL (3.50-5.40); RED CELL DISTRIBUTION WIDTH 15.5 % (11.5-14.5); WHITE BLOOD COUNT 6.7 x10^3/uL (4.0-11.0)
[2020-03-08 15:01] LABS: BARBITURATES NEG (NEG); BENZODIAZEPINES NEG (NEG); CANNABINOIDS NEG (NEG); COCAINE NEG (NEG); METHADONE NEG (NEG); OPIATES POS (NEG); PHENCYCLIDINE NEG (NEG)
[2020-03-08 15:04] LABS: AMPHETAMINE/METHAMPHETAMINE NEG (NEG)
[2020-03-08 15:12] LABS: CALCIUM 9.1 mg/dL (8.5-10.1); CREATININE 0.8 mg/dL (0.6-1.0); POTASSIUM 3.9 mmol/L (3.5-5.1)
[2020-03-08 15:16] LABS: ALBUMIN 3.8 g/dL (3.4-5.0); ALBUMIN/GLOBULIN RATIO 0.9 (1.0-1.7); TOTAL BILIRUBIN 0.3 mg/dL (0.2-1.0); TOTAL PROTEIN 8.1 g/dL (6.4-8.2)
[2020-03-08] MEDS ORDERED: IOHEXOL 300 MG/ML 100ML VIAL. IV ONE (15:30)
[2020-03-08] MEDS ORDERED: CONTRAST GIVEN. MC PRN (15:30)
--- NOTE | 2020-03-08 15:54 | RAD ---
CT ABD PELV W/ IV CONTRST ONLY History: Reason: abd pain hx of pancreatitis / Spl. Instructions: / History: Technique: After the administration of intravenous contrast, CT imaging was performed of the abdomen and pelvis. Multiplanar images are reviewed. Exposure: One or more of the following individualized dose reduction techniques were utilized for this examination: 1. Automated exposure control 2. Adjustment of the mA and/or kV according to patient size 3. Use of iterative reconstruction technique. Comparison: September 28, 2019 Findings: Lower chest: Mild bilateral lower lobe linear atelectasis. No consolidation or pleural effusion. Abdomen and pelvis: Right hepatic lobe hypodensity, unchanged. The spleen, and adrenal glands are unremarkable. Prior cholecystectomy. Mild biliary ductal dilatation, likely due to postcholecystectomy state. Normal appearance of the kidneys. No hydronephrosis. Decompressed urinary bladder. Slight prominence of the pancreatic duct measures 4 mm, unchanged compared to 2019. No pancreatic inflammatory changes. No fluid collections. Normal appendix. No evidence of bowel obstruction. No pathologic lymphadenopathy. No ascites. Prior hysterectomy. Bones: Lower lumbar spondylosis most prominent L5-S1. Impression: 1. No acute abdominal or pelvic pathology. 2. Mild pancreatic ductal dilatation, unchanged. 3. Prior cholecystectomy and hysterectomy. Electronically signed by: Pieter Solano DO (03/08/2020 3:51 PM) [facility]
--- NOTE | 2020-03-08 16:22 | PHYS DOC ---
Past Medical History Past Medical History: Anemia, CHF, Hypertension, IBS, Pancreatitis, STD, Other Additional Past Medical Histor: leaky valves, chronic back pain, fissure Past Surgical History: Cholecystectomy, Hysterectomy, Tubal ligation, Other Additional Past Surgical Histo: cardiac cath, cardiac ablation Smoking Status: Never Smoker Alcohol Use: None Drug Use: None General Adult EDM: Chief Complaint: ABDOMINAL PAIN HPI: HPI: Patient is a 39 year old female with history of chronic pancreatitis none alcohol induced, hypertension, CHF, who presents to the ED today complaining of 8 out of 10 sharp epigastric abdominal pain that has been going on since yesterday morning. Patient denies any nausea vomiting. Denies any diarrhea. She states the pain is consistent with her pancreatitis. She states she was at [facility] and had waited for 2 hours with no service and hence decided to come to [place]. Patient reports taking tramadol as well as morphine p.o. prior to coming to the ED with no relief for her pain. Review of Systems: Review of Systems: Constitutional: Denies fever or chills. [] Eyes: Denies change in visual acuity. [] HENT: Denies nasal congestion or sore throat. [] Respiratory: Denies cough or shortness of breath. [] Cardiovascular: Denies chest pain or edema. [] GI: Reports epigastric abdominal pain, denies nausea, vomiting, bloody stools or diarrhea. [] : Denies dysuria. [] Musculoskeletal: Denies back pain or joint pain. [] Integument: Denies rash. [] Neurologic: Denies headache, focal weakness or sensory changes. [] Psychiatric: Denies depression or anxiety. [] Heart Score: Risk Factors: Risk Factors: DM, Current or recent (<one month) smoker, HTN, HLP, family history of CAD, obesity. Risk Scores: Score 0 - 3: 2.5% MACE over next 6 weeks - Discharge Home Score 4 - 6: 20.3% MACE over next 6 weeks - Admit for Clinical Observation Score 7 - 10: 72.7% MACE over next 6 weeks - Early Invasive Strategies Current Medications: Current Medications Medications (Trade) Dose Ordered Sig/Saima Start Time Stop Time Status Last Admin Dose Admin Hydromorphone HCl (Dilaudid) 1 mg 1X ONCE 03/08/20 14:30 8/28/20 14:37 DC 03/08/20 14:46 1 MG Info (CONTRAST GIVEN -- Rx MONITORING) 1 each PRN DAILY PRN 03/08/20 15:30 03/10/20 15:29 Iohexol (Omnipaque 300 Mg/ml) 75 ml 1X ONCE 03/08/20 15:30 03/08/20 15:31 DC 03/08/20 15:43 75 ML Ondansetron HCl (Zofran) 4 mg 1X ONCE 03/08/20 14:30 03/08/20 14:37 DC 03/08/20 14:45 4 MG Sodium Chloride 1,000 ml @ 1,000 mls/hr 1X ONCE 03/08/20 14:30 03/08/20 15:29 DC 03/08/20 14:46 1,000 MLS/HR Allergies: Allergies: Allergies Coded Allergies Type Severity Reaction Last Updated Verified hydrocodone Allergy Intermediate itch 11/21/16 Yes oxycodone Allergy Intermediate itch 11/21/16 Yes morphine Adverse Reaction Mild Itching 03/08/20 Yes Physical Exam: PE: Constitutional: Well developed, well nourished, no acute distress, non-toxic appearance. [] HENT: Normocephalic, atraumatic, bilateral external ears normal, oropharynx moist, no oral exudates, nose normal. [] Eyes: PERRLA, EOMI, conjunctiva normal, no discharge. [] Neck: Normal range of motion, no tenderness, supple, no stridor. [] Cardiovascular:Heart rate regular rhythm, no murmur [] Lungs & Thorax: Bilateral breath sounds clear to auscultation [] Abdomen: Rounded abdomen. Bowel sounds normal, soft, mild tenderness on the epigastric region region, no right upper quadrant or right lower quadrant tenderness, no masses, no pulsatile masses. [] Skin: Warm, dry, no erythema, no rash. [] Back: No tenderness, no CVA tenderness. [] Extremities: No tenderness, no cyanosis, no clubbing, ROM intact, no edema. [] Neurologic: Alert and oriented X 3, normal motor function, normal sensory function, no focal deficits noted. [] Psychologic: Affect normal, judgement normal, mood normal. [] Current Patient Data: Labs: Laboratory Tests Test 03/08/20 14:10 03/08/20 14:18 03/08/20 14:25 Urine Collection Type Unknown Urine Color Yellow Urine Clarity Clear Urine pH 5.5 (<5.0-8.0) Urine Specific [place] 1.025 (1.000-1.030) Urine Protein Negative mg/dL (NEG-TRACE) Urine Glucose (UA) Negative mg/dL (NEG) Urine Ketones (Stick) Negative mg/dL (NEG) Urine Blood Trace (NEG) Urine Nitrite Negative (NEG) Urine Bilirubin Negative (NEG) Urine Urobilinogen Dipstick 0.2 mg/dL (0.2 mg/dL) Urine Leukocyte Esterase Negative (NEG) Urine RBC Rare /HPF (0-2) Urine WBC Rare /HPF (0-4) Urine Squamous Epithelial Cells Mod /LPF Urine Bacteria Few /HPF (0-FEW) Urine Hyaline Casts Few /HPF Urine Mucus Marked /LPF Urine Opiates Screen Pos (NEG) Urine Methadone Screen Neg (NEG) Urine Barbiturates Neg (NEG) Urine Phencyclidine Screen Neg (NEG) Urine Amphetamine/Methamphetamine Neg (NEG) Urine Benzodiazepines Screen Neg (NEG) Urine Cocaine Screen Neg (NEG) Urine Cannabinoids Screen Neg (NEG) Urine Ethyl Alcohol Neg (NEG) POC Urine HCG, Qualitative Hcg negative (Negative) White Blood Count 6.7 x10^3/uL (4.0-11.0) Red Blood Count 4.64 x10^6/uL (3.50-5.40) Hemoglobin 13.1 g/dL (12.0-15.5) Hematocrit 38.7 % (36.0-47.0) Mean Corpuscular Volume 83 fL (79-100) Mean Corpuscular Hemoglobin 28 pg (25-35) Mean Corpuscular Hemoglobin Concent 34 g/dL (31-37) Red Cell Distribution Width 15.5 % (11.5-14.5) H Platelet Count 423 x10^3/uL (140-400) H Neutrophils (%) (Auto) 61 % (31-73) Lymphocytes (%) (Auto) 32 % (24-48) Monocytes (%) (Auto) 5 % (0-9) Eosinophils (%) (Auto) 1 % (0-3) Basophils (%) (Auto) 1 % (0-3) Neutrophils # (Auto) 4.1 x10^3/uL (1.8-7.7) Lymphocytes # (Auto) 2.1 x10^3/uL (1.0-4.8) Monocytes # (Auto) 0.3 x10^3/uL (0.0-1.1) Eosinophils # (Auto) 0.1 x10^3/uL (0.0-0.7) Basophils # (Auto) 0.1 x10^3/uL (0.0-0.2) Sodium Level 138 mmol/L (136-145) Potassium Level 3.9 mmol/L (3.5-5.1) Chloride Level 104 mmol/L (98-107) Carbon Dioxide Level 27 mmol/L (21-32) Anion Gap 7 (6-14) Blood Urea Nitrogen 12 mg/dL (7-20) Creatinine 0.8 mg/dL (0.6-1.0) Estimated GFR (Cockcroft-Gault) 79.0 BUN/Creatinine Ratio 15 (6-20) Glucose Level 92 mg/dL (70-99) Calcium Level 9.1 mg/dL (8.5-10.1) Magnesium Level 2.0 mg/dL (1.8-2.4) Total Bilirubin 0.3 mg/dL (0.2-1.0) Aspartate Amino Transferase (AST) 17 U/L (15-37) Alanine Aminotransferase (ALT) 35 U/L (14-59) Alkaline Phosphatase 50 U/L (46-116) Total Protein 8.1 g/dL (6.4-8.2) Albumin 3.8 g/dL (3.4-5.0) Albumin/Globulin Ratio 0.9 (1.0-1.7) L Lipase 44 U/L (73-393) L Ethyl Alcohol Level < 10 mg/dL (0-10) Laboratory Tests 03/08/20 14:25 Laboratory Tests 03/08/20 14:25 Vital Signs: Vital Signs Date Time Temp Pulse Resp B/P (MAP) Pulse Ox O2 Delivery O2 Flow Rate FiO2 03/08/20 14:46 21 97 03/08/20 14:10 75 140/107 (118) Room Air 03/08/20 14:10 98.2 98.2 EKG: EKG: [] Radiology/Procedures: Radiology/Procedures: []PROCEDURE: CT ABD PELV W/ IV CONTRST ONLY CT ABD PELV W/ IV CONTRST ONLY History: Reason: abd pain hx of pancreatitis / Spl. Instructions: / History: Technique: After the administration of intravenous contrast, CT imaging was performed of the abdomen and pelvis. Multiplanar images are reviewed. Exposure: One or more of the following individualized dose reduction techniques were utilized for this examination: 1. Automated exposure control 2. Adjustment of the mA and/or kV according to patient size 3. Use of iterative reconstruction technique. Comparison: September 28, 2019 Findings: Lower chest: Mild bilateral lower lobe linear atelectasis. No consolidation or pleural effusion. Abdomen and pelvis: Right hepatic lobe hypodensity, unchanged. The spleen, and adrenal glands are unremarkable. Prior cholecystectomy. Mild biliary ductal dilatation, likely due to postcholecystectomy state. Normal appearance of the kidneys. No hydronephrosis. Decompressed urinary bladder. Slight prominence of the pancreatic duct measures 4 mm, unchanged compared to 2019. No pancreatic inflammatory changes. No fluid collections. Normal appendix. No evidence of bowel obstruction. No pathologic lymphadenopathy. No ascites. Prior hysterectomy. Bones: Lower lumbar spondylosis most prominent L5-S1. Impression: 1. No acute abdominal or pelvic pathology. 2. Mild pancreatic ductal dilatation, unchanged. 3. Prior cholecystectomy and hysterectomy. Electronically signed by: Pieter Esparza DO (03/08/2020 3:51 PM) [facility] DICTATED and SIGNED BY: PIETER ESPARZA DO DATE: 03/08/201550 Course & Med Decision Making: Course & Med Decision Making Pertinent Labs and Imaging studies reviewed. (See chart for details) This is a 39-year-old female patient well-known to this ED coming today complaining of abdominal pain due to chronic pancreatitis. CBC, CMP, lipase with no acute findings, CT of the abdomen and pelvic is negative for any acute findings, noted for chronic pancreatitis. Patient was discharged to home. She states she has a GI doctor to follow-up with at [facility]. Shirley Disclaimer: Shirley Disclaimer: This electronic medical record was generated, in whole or in part, using a voice recognition dictation system. Departure Departure Impression: Primary Impression: Chronic pancreatitis Qualified Codes: K86.1 - Other chronic pancreatitis Additional Impression: Abdominal pain Qualified Codes: R10.9 - Unspecified abdominal pain Disposition: HOME, SELF-CARE Condition: STABLE Referrals: UNKNOWN PCP NAME (PCP) follow up with your doctor at [facility] as soon as you can Patient Instructions: Acute Pancreatitis, [id number] Additional Instructions: You were evaluated in the emergency room for abdominal pain noted to have chronic pancreatitis. You can take your own pain medicine as needed. Follow-up with your doctor at [facility] Justicifation of Admission Dx: Justifications for Admission: Justification of Admission Dx: N/A MISA PRESSLEY APRN Mar 08, 2020 16:22
[2020-03-08 16:38] VITALS: BP 132/67
== END 2020-03-08 16:55 | disposition home or self-care (01) ==
LOC: ER 13:14
DX: K86.1 Other chronic pancreatitis (principal); R10.13 Epigastric pain; I11.9 Hypertensive heart disease without heart failure; I50.9 Heart failure, unspecified; G89.29 Other chronic pain; Z90.49 Acquired absence of other specified parts of digestive tract; Z90.710 Acquired absence of both cervix and uterus; Z98.51 Tubal ligation status; Z98.890 Other specified postprocedural states; Z88.5 Allergy status to narcotic agent; Z88.6 Allergy status to analgesic agent
CPT/HCPCS: 36415; 74177; 80053; 80307; 81001; 81025; 83690; 83735; 85025; 96361; 96374; 96375; 99285; G0480; J1170; J2405; J7030; Q9967

== ENCOUNTER 2020-09-02 11:52 | Emergency (ER) | payer OTHER ==
[~2020-09-02] VITALS: Ht 170.2 cm; Wt 114.5 kg
--- NOTE | 2020-09-02 13:04 | ED.ADGEN ---
Past Medical History Past Medical History: Anemia, CHF, Hypertension, IBS, Pancreatitis, STD, Other Additional Past Medical Histor: leaky valves, chronic back pain, fissure Past Surgical History: Cholecystectomy, Hysterectomy, Tubal ligation, Other Additional Past Surgical Histo: cardiac cath, cardiac ablation Smoking Status: Never Smoker Alcohol Use: None Drug Use: None General Adult EDM: Chief Complaint: ABDOMINAL PAIN HPI: HPI: Patient is a 39-year-old female past medical history of chronic pancreatitis who presents to the emergency room complaining of mid abdominal pain that radiates to the left side. She states this is similar to previous episodes other than she typically gets radiation to the right side. She has had nausea without vomiting. She has had diarrhea but no constipation. She has not had any kind of fever. She takes morphine at home but states that it has not relieved her pain. This is her first episode in several months. Pain is sharp in nature and constant. Review of Systems: Review of Systems: Complete ROS is negative unless otherwise documented in HPI Current Medications: Current Medications Medications (Trade) Dose Ordered Sig/Saima Start Time Stop Time Status Last Admin Dose Admin Diphenhydramine HCl (Benadryl) 25 mg 1X ONCE 09/02/20 13:45 09/02/20 13:46 DC 09/02/20 14:09 25 MG Morphine Sulfate (Morphine Sulfate) 5 mg 1X ONCE 09/02/20 15:00 09/02/20 15:01 DC Ondansetron HCl (Zofran) 4 mg 1X ONCE 09/02/20 13:45 09/02/20 13:46 DC 09/02/20 14:09 4 MG Sodium Chloride 1,000 ml @ 1,000 mls/hr 1X ONCE 09/02/20 13:45 09/02/20 14:44 DC 09/02/20 14:09 1,000 MLS/HR Allergies: Allergies: Allergies Coded Allergies Type Severity Reaction Last Updated Verified hydrocodone Allergy Intermediate itch 11/21/16 Yes oxycodone Allergy Intermediate itch 11/21/16 Yes morphine Adverse Reaction Mild Itching 03/08/20 Yes Physical Exam: PE: General: Awake, alert, NAD. Well Nourished, well hydrated. Cooperative HEENT: Atraumatic, EOMI, PERRL, airway patent, moist oral mucosa Neck: Supple, trachea midline Respiratory: CTA bilaterally, normal effort, no wheezing/crackles CV: RRR, no murmur, cap refill <2 GI: Soft, nondistended, nontender, no masses MSK: No obvious deformities Skin: Warm, dry, intact Neuro: A&O x3, speech NL, sensory and motor grossly intact, no focal deficits Psych: Normal affect, normal mood, not suicidal or homicidal Current Patient Data: Labs: Laboratory Tests Test 09/02/20 13:20 White Blood Count 5.9 x10^3/uL (4.0-11.0) Red Blood Count 4.53 x10^6/uL (3.50-5.40) Hemoglobin 12.7 g/dL (12.0-15.5) Hematocrit 37.8 % (36.0-47.0) Mean Corpuscular Volume 83 fL (79-100) Mean Corpuscular Hemoglobin 28 pg (25-35) Mean Corpuscular Hemoglobin Concent 34 g/dL (31-37) Red Cell Distribution Width 15.2 % (11.5-14.5) H Platelet Count 362 x10^3/uL (140-400) Neutrophils (%) (Auto) 53 % (31-73) Lymphocytes (%) (Auto) 39 % (24-48) Monocytes (%) (Auto) 7 % (0-9) Eosinophils (%) (Auto) 1 % (0-3) Basophils (%) (Auto) 0 % (0-3) Neutrophils # (Auto) 3.1 x10^3/uL (1.8-7.7) Lymphocytes # (Auto) 2.3 x10^3/uL (1.0-4.8) Monocytes # (Auto) 0.4 x10^3/uL (0.0-1.1) Eosinophils # (Auto) 0.1 x10^3/uL (0.0-0.7) Basophils # (Auto) 0.0 x10^3/uL (0.0-0.2) Urine Collection Type Unknown Urine Color Yellow Urine Clarity Clear Urine pH 6.0 (<5.0-8.0) Urine Specific [place] 1.020 (1.000-1.030) Urine Protein Negative mg/dL (NEG-TRACE) Urine Glucose (UA) Negative mg/dL (NEG) Urine Ketones (Stick) Negative mg/dL (NEG) Urine Blood Small (NEG) Urine Nitrite Negative (NEG) Urine Bilirubin Negative (NEG) Urine Urobilinogen Dipstick 1.0 mg/dL (0.2 mg/dL) Urine Leukocyte Esterase Negative (NEG) Urine RBC 3-5 /HPF (0-2) Urine WBC 0 /HPF (0-4) Urine Squamous Epithelial Cells Mod /LPF Urine Bacteria 0 /HPF (0-FEW) Urine Hyaline Casts Moderate /HPF Urine Mucus Mod /LPF Sodium Level 138 mmol/L (136-145) Potassium Level 3.6 mmol/L (3.5-5.1) Chloride Level 103 mmol/L (98-107) Carbon Dioxide Level 27 mmol/L (21-32) Anion Gap 8 (6-14) Blood Urea Nitrogen 9 mg/dL (7-20) Creatinine 0.8 mg/dL (0.6-1.0) Estimated GFR (Cockcroft-Gault) 79.0 BUN/Creatinine Ratio 11 (6-20) Glucose Level 126 mg/dL (70-99) H Calcium Level 8.3 mg/dL (8.5-10.1) L Total Bilirubin 0.3 mg/dL (0.2-1.0) Aspartate Amino Transferase (AST) 30 U/L (15-37) Alanine Aminotransferase (ALT) 54 U/L (14-59) Alkaline Phosphatase 47 U/L (46-116) Total Protein 7.6 g/dL (6.4-8.2) Albumin 3.8 g/dL (3.4-5.0) Albumin/Globulin Ratio 1.0 (1.0-1.7) Lipase 48 U/L (73-393) L Laboratory Tests 09/02/20 13:20 Laboratory Tests 09/02/20 13:20 Vital Signs: Vital Signs Date Time Temp Pulse Resp B/P (MAP) Pulse Ox O2 Delivery O2 Flow Rate FiO2 09/02/20 15:30 63 148/69 (95) 94 09/02/20 14:59 18 Room Air 09/02/20 12:53 98.3 98.3 EKG: EKG: [] Heart Score: Risk Factors: Risk Factors: DM, Current or recent (<one month) smoker, HTN, HLP, family history of CAD, obesity. Risk Scores: Score 0 - 3: 2.5% MACE over next 6 weeks - Discharge Home Score 4 - 6: 20.3% MACE over next 6 weeks - Admit for Clinical Observation Score 7 - 10: 72.7% MACE over next 6 weeks - Early Invasive Strategies Radiology/Procedures: Radiology/Procedures: [] Course & Med Decision Making: Course & Med Decision Making Pertinent Labs and Imaging studies reviewed. (See chart for details) Patient is a 39-year-old female presents to the emergency room complaining of abdominal pain. Patient does have a history of chronic pancreatitis and this may be related. She does have some mildly different characteristics to her pain today. Will order abdominal labs and symptomatic relief. Lab work u nremarkable. Patient's test results and vitals while in the ED were fully reviewed and discussed with the patient. Patient is stable and at this time does not need admission to the hospital. We have discussed strict return precautions and the importance of following up with their Primary Care Physician. Patient stated understanding and was given an opportunity to ask any questions. Patient is in agreement with plan. Shirley Disclaimer: Shirley Disclaimer: This electronic medical record was generated, in whole or in part, using a voice recognition dictation system. Departure Departure Impression: Primary Impression: Chronic pancreatitis Disposition: 01 DC HOME SELF CARE/HOMELESS Condition: STABLE Referrals: NON,STAFF (PCP) Patient Instructions: Acute Pancreatitis, [id number] SAL PISANO MD Sep 02, 2020 13:04
[2020-09-02 13:40] LABS: BILIRUBIN,URINE NEGATIVE (NEG); CLARITY,URINE CLEAR; COLOR,URINE YELLOW; NITRITE,URINE NEGATIVE (NEG); PROTEIN,URINE NEGATIVE (NEG-TRACE)
[2020-09-02 13:43] LABS: BASO % 0 % (0-3); EOS # 0.1 x10^3/uL (0.0-0.7); EOS % 1 % (0-3); HEMATOCRIT 37.8 % (36.0-47.0); HEMOGLOBIN 12.7 g/dL (12.0-15.5); LYMPH # 2.3 x10^3/uL (1.0-4.8); LYMPH % 39 % (24-48); MEAN CORPUSCULAR HEMOGLOBIN 28 pg (25-35); MEAN CORPUSCULAR HGB CONC 34 g/dL (31-37); MEAN CORPUSCULAR VOLUME 83 fL (79-100); MONO # 0.4 x10^3/uL (0.0-1.1); MONO % 7 % (0-9); NEUT # 3.1 x10^3/uL (1.8-7.7); NEUT % 53 % (31-73); PLATELET COUNT 362 x10^3/uL (140-400); RED BLOOD COUNT 4.53 x10^6/uL (3.50-5.40); RED CELL DISTRIBUTION WIDTH 15.2 % (11.5-14.5); WHITE BLOOD COUNT 5.9 x10^3/uL (4.0-11.0)
[2020-09-02] MEDS ORDERED: MORPHINE SULFATE 10 MG/ML VIAL. IV ONE ×2 (13:45→15:00)
[2020-09-02] MEDS ORDERED: IV NORMAL SALINE 1000ML BAG 1,000 ML IV ONE (13:45)
[2020-09-02] MEDS ORDERED: diphenhydrAMINE HCL 25 MG CAPSULE PO ONE (13:45)
[2020-09-02] MEDS ORDERED: ONDANSETRON PF 4 MG/2 ML VIAL. IVP ONE (13:45)
[2020-09-02 13:48] LABS: CALCIUM 8.3 mg/dL (8.5-10.1); CREATININE 0.8 mg/dL (0.6-1.0); POTASSIUM 3.6 mmol/L (3.5-5.1)
[2020-09-02 13:54] LABS: ALBUMIN 3.8 g/dL (3.4-5.0); TOTAL BILIRUBIN 0.3 mg/dL (0.2-1.0); TOTAL PROTEIN 7.6 g/dL (6.4-8.2)
[2020-09-02 14:09] LABS: BACTERIA,URINE 0 /HPF (0-FEW); HYALINE CASTS, URINE MODERATE /HPF; WBC,URINE 0 /HPF (0-4)
[2020-09-02 15:30] VITALS: BP 148/69
== END 2020-09-02 15:37 | disposition home or self-care (01) ==
LOC: ER 11:52
DX: K86.1 Other chronic pancreatitis (principal); R10.32 Left lower quadrant pain; I11.0 Hypertensive heart disease with heart failure; I50.9 Heart failure, unspecified; G89.29 Other chronic pain; Z90.49 Acquired absence of other specified parts of digestive tract; Z90.710 Acquired absence of both cervix and uterus; Z98.51 Tubal ligation status; Z98.890 Other specified postprocedural states; Z88.6 Allergy status to analgesic agent; Z88.5 Allergy status to narcotic agent
CPT/HCPCS: 36415; 80053; 81001; 83690; 85025; 96361; 96374; 96375; 99285; J2270; J2405; J7030; Q0163

== ENCOUNTER 2020-09-26 17:37 | Emergency (ER) | payer OTHER ==
[~2020-09-26] VITALS: Ht 162.6 cm; Wt 110.0 kg
[2020-09-26] MEDS ORDERED: IV NORMAL SALINE 1000ML BAG 1,000 ML IV ONE (18:30)
[2020-09-26] MEDS ORDERED: ONDANSETRON PF 4 MG/2 ML VIAL. IVP ONE (18:30)
[2020-09-26] MEDS ORDERED: MORPHINE SULFATE 4 MG/ML VIAL. IV ONE (18:30)
[2020-09-26] MEDS ORDERED: diphenhydrAMINE 50 MG/ML VIAL IVP ONE (18:30)
[2020-09-26] MEDS ORDERED: diphenhydrAMINE HCL 25 MG CAPSULE PO ONE (18:30)
--- NOTE | 2020-09-26 18:36 | PHYS DOC ---
Past Medical History Past Medical History: Anemia, CHF, Hypertension, IBS, Pancreatitis, STD, Other Additional Past Medical Histor: leaky valves, chronic back pain, fissure Past Surgical History: Cholecystectomy, Hysterectomy, Tubal ligation, Other Additional Past Surgical Histo: cardiac cath, cardiac ablation Smoking Status: Never Smoker Alcohol Use: None Drug Use: None General Adult EDM: Chief Complaint: ABDOMINAL PAIN HPI: HPI: Patient is a 39 year old -[place] female with history of hypertension IBS chronic pancreatitis presents with 3-day history of epigastric pain. Patient reports that Wednesday she woke up with severe epigastric pain that radiates to the right upper quadrant and further all around to the mid thorax. Patient has history of chronic pancreatitis and reports flareup every few months. He takes tramadol and morphine daily for chronic pain. She is not having a flareup of her pain usually was around 3-4 out of 10 in severity. It is Wednesday her pain was 10 out of 10 in severity and tramadol and morphine can no longer alleviates her pain. Patient has chronic nausea, which has worsened since Wednesday as the pain progressed. Reports that she can barely tolerate oral intake. Drinking water or eating food will worsen her epigastric pain. Patient has IBS and her bowel movement chronically swing between constipation and diarrhea. This Wednesday she had only had frequent watery stool. Patient reports that her pain worsens with movement as well as laying supine. Patient was tearful during the encounter. She denies any recent sick contact, fever or chills, chest pain or shortness of air, and is in tingling hands and feet, and change in mental status. Patient is the main historian. Review of Systems: Review of Systems: Review of systems: Constitutional symptoms- No fever, no chills. Eyes- No Discharge, No Visual Loss Respiratory symptoms- No shortness of breath, No wheezing, No Dyspnea on Exertion Cardiovascular Systems; No chest pain, No Palpitations, No syncope Gastrointestinal symptoms: Endorses 10 out of 10 sharp epigastric pain, nausea, diarrhea and no vomiting. Genitourinary symptoms: No dysuria. Musculoskeletal symptoms: Patient's epigastric pain radiates to the mid thorax. NEUROLOGICAL Symptoms: No headache, no generalized weakness; No focal Weakness Heart Score: C/O Chest Pain: No Risk Factors: Risk Factors: DM, Current or recent (<one month) smoker, HTN, HLP, family history of CAD, obesity. Risk Scores: Score 0 - 3: 2.5% MACE over next 6 weeks - Discharge Home Score 4 - 6: 20.3% MACE over next 6 weeks - Admit for Clinical Observation Score 7 - 10: 72.7% MACE over next 6 weeks - Early Invasive Strategies Current Medications: Current Medications Medications (Trade) Dose Ordered Sig/Saima Start Time Stop Time Status Last Admin Dose Admin Diphenhydramine HCl (Benadryl) 25 mg 1X ONCE 09/26/20 18:30 09/26/20 18:31 UNV Morphine Sulfate (Morphine Sulfate) 4 mg 1X ONCE 09/26/20 18:30 09/26/20 18:31 Ondansetron HCl (Zofran) 4 mg 1X ONCE 09/26/20 18:30 09/26/20 18:31 Sodium Chloride 1,000 ml @ 1,000 mls/hr 1X ONCE 09/26/20 18:30 09/26/20 19:29 Allergies: Allergies: Allergies Coded Allergies Type Severity Reaction Last Updated Verified hydrocodone Allergy Intermediate itch 11/21/16 Yes oxycodone Allergy Intermediate itch 11/21/16 Yes morphine Adverse Reaction Mild Itching 03/08/20 Yes Physical Exam: PE: General: alert, mild acute distress, anxious Skin: warm, dry and intact. Head:: Normocephalic, atraumatic. Neck: Trachea midline. Eyes: EOMI, Normal conjunctiva, No drainage CARDIOVASCULAR: Regular rate and rhythm RESPIRATORY: No respiratory distress Back: Full range of motion. MUSCULOSKELETAL: Full range of motion of bilateral upper and lower extremities. GASTROINTESTINAL: Gastric region tender upon palpation, lower abdominal quadrants no tenderness or rebound. NEUROLOGICAL: Alert and noted to person, place and time. No neurological deficits observed Psychiatric: Cooperative. Normal judgment EKG: EK heart rate [address] elevation ST depression no acute LA [] Radiology/Procedures: Radiology/Procedures: [] Course & Med Decision Making: Course & Med Decision Making Pertinent Labs and Imaging studies reviewed. (See chart for details) [] Patient was evaluated for chief complaint. Work-up consisted of laboratory analysis. Results reviewed discussed with patient. Patient's labs without any acute abnormalities. She is pain improved with the medication she requested which include morphine with Benadryl and Zofran. Dragon Disclaimer: [employer] Disclaimer: This electronic medical record was generated, in whole or in part, using a voice recognition dictation system. Departure Departure Impression: Primary Impression: Abdominal pain Disposition: 01 DC HOME SELF CARE/HOMELESS Condition: STABLE Referrals: NO PCP (PCP) Patient Instructions: Abdominal Pain, Chronic Pain Scripts Ondansetron Hcl (ZOFRAN) 4 Mg Tablet 1 TAB PO Q6HRS, #20 TAB Prov: GALINA DURAN DO 09/26/20 GALINA DURAN DO Sep 26, 2020 18:36
[2020-09-26 18:57] LABS: BASO # 0.1 x10^3/uL (0.0-0.2); BASO % 1 % (0-3); EOS # 0.1 x10^3/uL (0.0-0.7); EOS % 1 % (0-3); HEMATOCRIT 39.2 % (36.0-47.0); HEMOGLOBIN 13.2 g/dL (12.0-15.5); LYMPH # 2.7 x10^3/uL (1.0-4.8); LYMPH % 29 % (24-48); MEAN CORPUSCULAR HEMOGLOBIN 28 pg (25-35); MEAN CORPUSCULAR HGB CONC 34 g/dL (31-37); MEAN CORPUSCULAR VOLUME 84 fL (79-100); MONO # 0.6 x10^3/uL (0.0-1.1); MONO % 6 % (0-9); NEUT # 5.9 x10^3/uL (1.8-7.7); NEUT % 63 % (31-73); PLATELET COUNT 377 x10^3/uL (140-400); RED BLOOD COUNT 4.67 x10^6/uL (3.50-5.40); RED CELL DISTRIBUTION WIDTH 15.2 % (11.5-14.5); WHITE BLOOD COUNT 9.4 x10^3/uL (4.0-11.0)
[2020-09-26] MEDS ORDERED: FAMOTIDINE 20 MG/2 ML VIAL IVP ONE (19:00)
[2020-09-26 19:07] LABS: CALCIUM 9.4 mg/dL (8.5-10.1); CREATININE 0.8 mg/dL (0.6-1.0); POTASSIUM 3.9 mmol/L (3.5-5.1)
[2020-09-26 19:11] LABS: TOTAL BILIRUBIN 0.3 mg/dL (0.2-1.0); TOTAL PROTEIN 8.2 g/dL (6.4-8.2)
[2020-09-26 20:13] LABS: BILIRUBIN,URINE NEGATIVE (NEG); CLARITY,URINE CLEAR; COLOR,URINE YELLOW; NITRITE,URINE NEGATIVE (NEG); PH,URINE 5.5 (<5.0-8.0); PROTEIN,URINE NEGATIVE (NEG-TRACE); UROBILINOGEN,URINE 0.2 mg/dL (0.2 mg/dL)
[2020-09-26] MEDS ORDERED: ONDA4TAB7 PO (20:23)
--- NOTE | 2020-09-26 20:24 | EKG ---
[facility] [address] [place] [address] Test Date: 2020-09-26 Test Time: 18:20:23 Pat Name: FAN WILLIAMSON Department: Room: Gender: F Project Control Analyst: : 1980 Requested By: GALINA DURAN Order Number: [id number] Reading MD: Measurements Intervals [place] Rate: 107 P: 49 [place]: 172 QRS: 28 QRSD: 88 T: 36 QT: 314 QTc: 419 Interpretive Statements SINUS TACHYCARDIA NO SPECIFIC ECG ABNORMALITIES RI6.02 No previous ECG available for comparison
[2020-09-26 20:25] LABS: BACTERIA,URINE 0 /HPF (0-FEW); RBC,URINE OCC /HPF (0-2); WBC,URINE 0 /HPF (0-4)
[2020-09-26] MEDS ORDERED: MORPHINE SULFATE 2 MG/ML VIAL. IV ONE (20:30)
[2020-09-26 20:34] VITALS: BP 141/80
== END 2020-09-26 21:00 | disposition home or self-care (01) ==
LOC: ER 17:37
DX: R10.13 Epigastric pain (principal); R11.0 Nausea; R19.7 Diarrhea, unspecified; I11.0 Hypertensive heart disease with heart failure; I50.9 Heart failure, unspecified; K86.1 Other chronic pancreatitis; G89.29 Other chronic pain; Z90.49 Acquired absence of other specified parts of digestive tract; Z90.710 Acquired absence of both cervix and uterus; Z98.51 Tubal ligation status; Z98.890 Other specified postprocedural states; Z88.5 Allergy status to narcotic agent; Z88.6 Allergy status to analgesic agent
CPT/HCPCS: 36415; 80053; 81001; 83690; 85025; 93005; 96361; 96374; 96375; 99284; J1200; J2270; J2405; J3490; J7030

== ENCOUNTER 2021-03-14 17:12 | Emergency (ER) | payer OTHER ==
[~2021-03-14] VITALS: Ht 170.2 cm; Wt 113.0 kg
[~2021-03-14 17:12] MED LIST changes: +DOCU-148 PO; -DOCU-153 PO; -DOXY100C2 PO; +DOXY100C3 PO; +ONDA4TAB7 PO
[2021-03-14 17:30] VITALS: BP 156/96
[2021-03-14] MEDS ORDERED: MORPHINE IR 15 MG TABLET PO ONE (18:15)
--- NOTE | 2021-03-14 18:29 | PHYS DOC ---
Past Medical History Past Medical History: Anemia, CHF, Hypertension, IBS, Pancreatitis, STD Additional Past Medical Histor: "Leaky heart valve", heart murmur, COVID 2020, Past Surgical History: Hysterectomy, Tubal ligation Additional Past Surgical Histo: cardiac cath, cardiac ablation Smoking Status: Never Smoker Alcohol Use: None Drug Use: None General Adult EDM: Chief Complaint: PAIN CONTROL HPI: HPI: Patient is a 40 year old female who presents with intractable abdominal pain and vaginal itching/burning. Patient states she has chronic pancreatitis and ran out of her at home morphine, which is morphine IR 15 taken as needed every 4 hours. She sent a message to her PCPs nurse practitioner, who passed the message along to her provider. The provider was unable to send a refill for the morphine at this time. They instructed her to come to the ED in order to get a bridge prescription. Patient states she has been treated for trichomoniasis twice without resolution of symptoms. She says that her symptoms today are the same as when she has experienced. Patient reports having 1 sexual partner, however she has not engaged in any sexual activity since being diagnosed with trichomoniasis, as her partner has not gone to get tested himself. Additionally, patient states she got her second dose of the Covid vaccine and has an intractable headache. Patient denies chest pain, palpitations, hematuria. Review of Systems: Review of Systems: Constitutional: Denies fever or chills. [] Eyes: Denies change in visual acuity. [] HENT: Denies nasal congestion or sore throat. [] Respiratory: Denies cough or shortness of breath. [] Cardiovascular: Denies chest pain or edema. [] GI: Reports abdominal pain, anorexia. Denies diarrhea, constipation. : Reports vaginal itching, discharge, burning. Denies dysuria, hematuria. [] Musculoskeletal: Denies back pain or joint pain. [] Integument: Denies rash. [] Neurologic: Reports headache. Denies focal weakness or sensory changes. [] Heart Score: C/O Chest Pain: No Risk Factors: Risk Factors: DM, Current or recent (<one month) smoker, HTN, HLP, family history of CAD, obesity. Risk Scores: Score 0 - 3: 2.5% MACE over next 6 weeks - Discharge Home Score 4 - 6: 20.3% MACE over next 6 weeks - Admit for Clinical Observation Score 7 - 10: 72.7% MACE over next 6 weeks - Early Invasive Strategies Current Medications: Current Medications Medications (Trade) Dose Ordered Sig/Saima Start Time Stop Time Status Last Admin Dose Admin Morphine Sulfate (Morphine Ir) 15 mg 1X ONCE 03/14/21 18:15 03/14/21 18:16 DC Allergies: Allergies: Allergies Coded Allergies Type Severity Reaction Last Updated Verified hydrocodone Allergy Intermediate itch 11/21/16 Yes oxycodone Allergy Intermediate itch 11/21/16 Yes morphine Adverse Reaction Mild Itching 03/08/20 Yes Physical Exam: PE: Constitutional: Well developed, well nourished, no acute distress, non-toxic appearance. [] HENT: Normocephalic, atraumatic, bilateral external ears normal, oropharynx moist, no oral exudates, nose normal. [] Eyes: PERRLA, EOMI, conjunctiva normal, no discharge. [] Neck: Normal range of motion, no tenderness, supple, no stridor. [] Cardiovascular: Heart rate regular rhythm, no murmur [] Lungs & Thorax: Bilateral breath sounds clear to auscultation [] Abdomen: Tender to palpation in epigastric region. bowel sounds normal, soft, no masses, no pulsatile masses. [] Pelvic: Pelvic exam was performed with supervision of female catering truck driver. Mons pubis and labia warm, no erythema, no lesions. White, thin discharge present in vaginal canal. Skin: Warm, dry, no erythema, no rash. [] Current Patient Data: Vital Signs: Vital Signs Date Time Temp Pulse Resp B/P (MAP) Pulse Ox O2 Delivery O2 Flow Rate FiO2 03/14/21 17:30 90 16 156/96 (100) 98 Room Air EKG: EKG: [] Radiology/Procedures: Radiology/Procedures: [] Course & Med Decision Making: Course & Med Decision Making Pertinent Labs and Imaging studies reviewed. (See chart for details) Patient has chronic pain and was looked up in tracks. Existing prescription was verified. Due to multiple treatments for trichomoniasis without symptom resolution, a new wet prep and GC swab were obtained. She will be treated with a longer course of Flagyl along with a suppository and effort to treat the infection. If new swabs culture anything different, prescription can be modified. Shirley Disclaimer: Shirley Disclaimer: This electronic medical record was generated, in whole or in part, using a voice recognition dictation system. Departure Departure Impression: Primary Impression: Abdominal pain Additional Impression: Vaginitis Disposition: HOME / SELF CARE / HOMELESS Condition: STABLE Referrals: NO PCP (PCP) Patient Instructions: Abdominal Pain, [id number], Trichomonas, Test, Vaginitis, [id number] Additional Instructions: Morphine bridge was prescribed according to existing prescription from PCP. Be sure to follow-up with PCP as soon as possible for further prescriptions, as the emergency department is unable to prescribe long-term pain medication in this manner. You are prescribed a 7-day regimen of metronidazole. It is important to abstain from consuming alcoholic beverages while you are on this medication, as significant nausea and vomiting can occur. Return to emergency department for intractable pain or worsening symptoms. Scripts Metronidazole (METRONIDAZOLE) 500 Mg Tablet 1 TAB PO BID for 7 Days, #14 TAB 0 Refills Prov: SHANTELL MATHEWS 03/14/21 Morphine Sulfate (MORPHINE SULFATE) 15 Mg Tablet 15 MG PO BID PRN for PAIN, #12 TAB Prov: SHANTELL MATHEWS 03/14/21 SHANTELL MATHEWS Mar 14, 2021 18:29
[2021-03-14] MEDS ORDERED: MORP15TA PO (18:45)
[2021-03-14] MEDS ORDERED: METR-34 PO (19:36)
[2021-03-18 17:23] LABS: GC PROBE Negative (Negative)
== END 2021-03-14 20:29 | disposition home or self-care (01) ==
LOC: ER 17:12
DX: N76.0 Acute vaginitis (principal); I11.0 Hypertensive heart disease with heart failure; I50.9 Heart failure, unspecified; K58.9 Irritable bowel syndrome, unspecified; Z86.2 Personal history of diseases of the blood and blood-forming organs and certain disorders involving the immune mechanism; Z90.710 Acquired absence of both cervix and uterus; Z98.51 Tubal ligation status; Z88.5 Allergy status to narcotic agent
CPT/HCPCS: 87491; 87591; 99284; Q0111

== ENCOUNTER 2021-06-24 06:03 | Emergency (ER) | payer OTHER ==
[~2021-06-24] VITALS: Ht 170.2 cm; Wt 114.3 kg
[~2021-06-24 06:03] MED LIST changes: +CYCL10TA19 PO; -CYCL10TA2 PO; +METR-34 PO
--- NOTE | 2021-06-24 08:18 | PHYS DOC ---
Past Medical History Past Medical History: Anemia, CHF, Hypertension, IBS, Pancreatitis, STD Additional Past Medical Histor: "Leaky heart valve", heart murmur, COVID 2020, Past Surgical History: Cholecystectomy, Hysterectomy, Tubal ligation Additional Past Surgical Histo: cardiac cath, cardiac ablation Smoking Status: Never Smoker Alcohol Use: None Drug Use: None General Adult EDM: Chief Complaint: VAGINAL PROBLEM HPI: HPI: Patient is a 40-year-old female presenting for vaginal issues. Reports this is an acute on chronic issue. Reports she was here approximately 1 month ago and tested positive for trichomonas, admits she received proper treatment for this and took all of her medications as prescribed. Nonetheless, patient reports having sex with same partner who gave her trichomonas, she states that the condom box during sex and she is unsure if male partner finished his course of antibiotics as prescribed. She is subsequently here today for evaluation of 2 days of vaginal itching and malodorous discharge. She is requesting STD check today Review of Systems: Review of Systems: Fourteen body systems of review of systems have been reviewed. See HPI for pertinent positives and negative responses, other white all other systems are negative, non-pertinent or non-contributory Heart Score: C/O Chest Pain: No Risk Factors: Risk Factors: DM, Current or recent (<one month) smoker, HTN, HLP, family history of CAD, obesity. Risk Scores: Score 0 - 3: 2.5% MACE over next 6 weeks - Discharge Home Score 4 - 6: 20.3% MACE over next 6 weeks - Admit for Clinical Observation Score 7 - 10: 72.7% MACE over next 6 weeks - Early Invasive Strategies Allergies: Allergies: Allergies Coded Allergies Type Severity Reaction Last Updated Verified hydrocodone Allergy Intermediate itch 11/21/16 Yes oxycodone Allergy Intermediate itch 11/21/16 Yes morphine Adverse Reaction Mild Itching 06/24/21 Yes Physical Exam: PE: Constitutional: Well developed, well nourished, no acute distress, non-toxic appearance. HENT: Normocephalic, atraumatic, bilateral external ears normal, oropharynx moist, no oral exudates, nose normal. Eyes: PERRLA, EOMI, conjunctiva normal, no discharge. Neck: Normal range of motion, no tenderness, supple, no stridor. Cardiovascular: Heart rate regular, sinus rhythm, no murmurs rubs or gallops Lungs & Thorax: Bilateral breath sounds clear to auscultation Abdomen: Bowel sounds normal, soft, no tenderness, no masses, no pulsatile masses. Nonsurgical abdomen, no peritoneal signs : External genitalia unremarkable. Vaginal vault nonconcerning with no external or internal sores. Cervix identified and nonremarkable, nonfriable, negative chandelier sign, there is scant malodorous creamy white appearing discharge present throughout entirety of pelvic exam Skin: Warm, dry, no erythema, no rash. Back: No tenderness, no CVA tenderness. Extremities: No tenderness, no cyanosis, no clubbing, ROM intact, no edema. Neurologic: Alert and oriented X 3, grossly normal motor & sensory function, no focal deficits noted. Psychologic: Affect normal, judgement normal, mood normal. Current Patient Data: Labs: Laboratory Tests Test 06/24/21 07:59 POC Urine HCG, Qualitative Hcg negative (Negative) Vital Signs: Vital Signs Date Time Temp Pulse Resp B/P (MAP) Pulse Ox O2 Delivery O2 Flow Rate FiO2 06/24/21 07:57 98.4 56 18 138/78 (98) 99 Room Air 98.4 EKG: EKG: [] Radiology/Procedures: Radiology/Procedures: [] Course & Med Decision Making: Course & Med Decision Making ABCs unremarkable HPI physical exam and comprehensive ER work-up nonconcerning for any emergent or surgical issues I disclosed all findings of urinary tract infection based on UA, and wet prep c oncerning for trichomonas and bacterial vaginitis. Joint decision to treat these with Macrobid and Flagyl with appropriate precautions and side effects discussed Joint decision also made to prophylactically treat against other STDs specifically gonorrhea and chlamydia with Rocephin and doxycycline today with subsequent doxycycline prescription written Patient has access to PCP, advised her given recent course of events for close outpatient follow-up for HIV and syphilis testing in addition to other prophyl actic and/or preventative standards of care Strict return precautions discussed at length with good understanding by patient prior to ER departure Shirley Disclaimer: Shirley Disclaimer: This electronic medical record was generated, in whole or in part, using a voice recognition dictation system. Departure Departure Impression: Primary Impression: Trichomonal vaginitis Additional Impressions: Bacterial vaginitis UTI (urinary tract infection) Disposition: HOME / SELF CARE / HOMELESS Condition: STABLE Referrals: UNKNOWN PCP NAME (PCP) Additional Instructions: You were seen for vaginal issues and ultimately diagnosed with known trichomonas, bacterial vaginosis and an urinary tract infection. You were tested for the most common STDs. It is not clear when/where you became infected and many people can be asymptomatic. You need to have testing for syphilis, hepatitis, and other STD/STI testing done at the health department or your primary care doctor's office. You should avoid sex for the next week and use condoms in the future. You must have all your sexual partners tested, treated, and avoid sexual intercourse for 1 week after all parties have finished treatment. Strict adherence may still not prevent re-infection. Return to the ED if you develop any new or concerning symptoms. Scripts Nitrofurantoin Monohyd/M-Cryst (MACROBID 100 MG CAPSULE) 100 Mg Capsule 1 CAP PO BID for 5 Days, #10 CAP 0 Refills Prov: RAMESH GLASS DO 06/24/21 Doxycycline Hyclate (DOXYCYCLINE HYCLATE) 100 Mg Capsule 1 CAP PO BID, #13 CAP Prov: RAMESH GLASS DO 06/24/21 Metronidazole (METRONIDAZOLE) 500 Mg Tablet 1 TAB PO BID for 7 Days, #13 TAB 0 Refills Prov: RAMESH GLASS DO 06/24/21 RAMESH GLASS DO Jun 24, 2021 08:18
[2021-06-24 08:30] LABS: BILIRUBIN,URINE NEGATIVE (NEG); CLARITY,URINE CLEAR; COLOR,URINE YELLOW; NITRITE,URINE NEGATIVE (NEG); PH,URINE 7.5 (<5.0-8.0); PROTEIN,URINE NEGATIVE (NEG-TRACE)
[2021-06-24 08:49] LABS: BACTERIA,URINE FEW /HPF (0-FEW); RBC,URINE RARE /HPF (0-2); TRICHOMONAS,URINE PRESENT
[2021-06-24] MEDS ORDERED: METR-34 PO (09:30)
[2021-06-24] MEDS ORDERED: DOXY100C3 PO (09:40)
[2021-06-24] MEDS ORDERED: NITR100C62 PO (09:40)
[2021-06-24] MEDS ORDERED: NITROFURANTOIN MONOHYD/M-CRYST 100 MG CAPSULE. PO ONE ×2 (09:45→10:00)
[2021-06-24] MEDS ORDERED: metroNIDAZOLE 500 MG TABLET PO ONE (09:45)
[2021-06-24 09:59] VITALS: BP 149/80
[2021-06-24] MEDS ORDERED: DOXYCYCLINE HYCLATE 100 MG TABLET PO ONE (10:00)
[2021-06-24] MEDS ORDERED: cefTRIAXone IM 1 GM VIAL IM ONE (10:00)
== END 2021-06-24 10:15 | disposition home or self-care (01) ==
LOC: ER 06:03
DX: A59.01 Trichomonal vulvovaginitis (principal); N76.0 Acute vaginitis; B96.89 Other specified bacterial agents as the cause of diseases classified elsewhere; N39.0 Urinary tract infection, site not specified; I11.0 Hypertensive heart disease with heart failure; I50.9 Heart failure, unspecified; K58.9 Irritable bowel syndrome, unspecified; Z90.49 Acquired absence of other specified parts of digestive tract; Z90.710 Acquired absence of both cervix and uterus; Z98.51 Tubal ligation status; Z88.5 Allergy status to narcotic agent
CPT/HCPCS: 81001; 81025; 87086; 87491; 87591; 96372; 99284; J0696; Q0111

== ENCOUNTER 2021-08-01 09:55 | Emergency (ER) | payer OTHER ==
[~2021-08-01] VITALS: Ht 170.2 cm; Wt 116.6 kg
[~2021-08-01 09:55] MED LIST changes: +NITR100C62 PO
[2021-08-01] MEDS ORDERED: DEXAMETHASONE 4 MG TABLET PO ONE (10:15)
--- NOTE | 2021-08-01 10:32 | PHYS DOC ---
Past Medical History Past Medical History: Anemia, CHF, Hypertension, IBS, Pancreatitis, STD Additional Past Medical Histor: "Leaky heart valve", heart murmur, COVID 2020, Past Surgical History: Cholecystectomy, Hysterectomy, Tubal ligation Additional Past Surgical Histo: cardiac cath, cardiac ablation Smoking Status: Never Smoker Alcohol Use: None Drug Use: None Adult General Chief Complaint Chief Complaint: FLU SYMPTOM [facility] HPI Patient is a 40 year old FEMALE who presents with FLU SYMPTOMS. Patient has been ill over the last 3 to 4 days. She primarily complains of a cough that has been wheezy and nonproductive. Cough is very persistent however. She has had some body aches and chills, general fatigue and malaise. She did have negative COVID test 3 days earlier. She went to work today and continued to have symptoms and was recommended to come to the emergency department for evaluation. She does not complain of acute shortness of breath. She has no prior history of asthma or COPD or other lung disease. Has been eating and drinking normally and has no nausea, vomiting, abdominal pain Review of Systems Review of Systems Constitutional: As documented in HPI Eyes: Denies change in visual acuity, redness, or eye pain HENT: Denies nasal congestion or sore throat Respiratory: No shortness of breath, she has cough Cardiovascular: No additional information not addressed in HPI GI: Denies abdominal pain, nausea, vomiting, bloody stools or diarrhea : Denies dysuria or hematuria Musculoskeletal: Denies back pain or joint pain Integument: Denies rash or skin lesions Neurologic: Denies headache, focal weakness or sensory changes All other systems were reviewed and found to be within normal limits, except as documented in this note. Current Medications Current Medications Current Medications Medications (Trade) Dose Ordered Sig/Saima Start Time Stop Time Status Last Admin Dose Admin Dexamethasone (Decadron) 10 mg 1X ONCE 08/01/21 10:15 08/01/21 10:16 DC 08/01/21 10:28 10 MG Allergies Allergies Allergies Coded Allergies Type Severity Reaction Last Updated Verified hydrocodone Allergy Intermediate itch 11/21/16 Yes oxycodone Allergy Intermediate itch 11/21/16 Yes Physical Exam Physical Exam Constitutional: Well developed, well nourished, no acute distress, non-toxic appearance. HENT: Normocephalic, atraumatic, bilateral external ears normal, oropharynx moist, no oral exudates, nose normal. Eyes: PERRLA, EOMI, conjunctiva normal Neck: Normal range of motion, no tenderness, Cardiovascular:Heart rate regular rhythm Lungs & Thorax: Bilateral breath sounds clear to auscultation Abdomen: Bowel sounds normal, soft, no tenderness, Skin: Warm, dry, no erythema, no rash. Back: Normal ROM Extremities: No edema Neurologic: Alert and oriented X 3, normal motor function Psychologic: Affect normal Current Patient Data Vital Signs Vital Signs Date Time Temp Pulse Resp B/P (MAP) Pulse Ox O2 Delivery O2 Flow Rate FiO2 08/01/21 10:14 97.9 64 16 169/91 (117) 100 Room Air 97.9 Lab Values Laboratory Tests Test 08/01/21 10:30 Influenza Type A Antigen Negative (NEGATIVE) Influenza Type B Antigen Negative (NEGATIVE) SARS-CoV-2 Antigen (Rapid) Negative (NEGATIVE) EKG EKG [] Radiology/Procedures Radiology/Procedures [] Course & Med Decision Making Course & Med Decision Making Pertinent Labs and Imaging studies reviewed. (See chart for details) 10:00: patient is evaluated. She is in no distress. Her lungs are clear with good air movement in all blair. Her oxygen saturation is greater than 95% on room air. She complains of symptoms most consistent with viral infection and she does not complain of acute shortness of breath. Today, we will give Decadron. She does have a very wheezy sounding cough although her lungs are clear otherwise. Will check for flu and COVID. 11:15: Viral testing returns. COVID-negative. Flu negative. Likely nontestable virus cause for her symptoms. Her physical examination is normal. Stable for discharge home. Diagnosis is explained to her and all her questions were answered. Recommend she rest at home over the next 2 days. Follow-up with primary care doctor. Come back to the ER for any new or severely worsening symptoms Dragon Disclaimer Dragon Disclaimer This electronic medical record was generated, in whole or in part, using a voice recognition dictation system. Departure Departure Impression: Primary Impression: Viral syndrome Disposition: HOME / SELF CARE / HOMELESS Condition: GOOD Referrals: UNKNOWN PCP NAME (PCP) Patient Instructions: Viral Syndrome NELSY GAGE DO Aug 01, 2021 10:32
[2021-08-01 11:07] LABS: INFLUENZA A PATIENT NEGATIVE (NEGATIVE); INFLUENZA B PATIENT NEGATIVE (NEGATIVE)
[2021-08-01] MEDS ORDERED: DEXA4TAB63 PO (11:17)
[2021-08-01 12:07] VITALS: BP 143/82
== END 2021-08-01 12:10 | disposition home or self-care (01) ==
LOC: ER 09:55
DX: B34.9 Viral infection, unspecified (principal); Z20.822 Contact with and (suspected) exposure to COVID-19; I11.0 Hypertensive heart disease with heart failure; I50.9 Heart failure, unspecified; K58.9 Irritable bowel syndrome, unspecified; Z88.5 Allergy status to narcotic agent
CPT/HCPCS: 87428; 99283